=== PATIENT | male | born 1975 | race Caucasian/White ===

== ENCOUNTER 2020-03-04 09:20 | Outpatient (REF) | payer MEDICAID, SELFPAY | END 2020-03-04 09:21 | disposition home or self-care (01) | LOC: HO.LAB 09:20 | PROVIDERS: PCP Internal Medicine Geriatric Medicine; Visit Provider Internal Medicine | DX: Z20.828 Contact with and (suspected) exposure to other viral communicable diseases (principal) | CPT/HCPCS: C9803; U0003 ==

== ENCOUNTER 2020-08-03 08:38 | Outpatient (REF) | payer MEDICAID, SELFPAY ==
--- NOTE | ~2020-08-03 | MM_ITS ---
EXAMINATION: MM DIAGNOSTIC DIGITAL BREAST TOMOSYNTHESIS, BILATERAL US DIAGNOSTIC ULTRASOUND BREAST, LEFT CLINICAL INFORMATION: 45-year-old male with chronic intermittent pain left nipple and left retroareolar region. No palpable mass or discharge. No known family history breast cancer. No prior breast imaging. COMPARISON: CT chest 07/14/2017. TECHNIQUE: Digital breast tomosynthesis is performed in both the craniocaudal and mediolateral oblique views along with computer-aided detection (CAD). Synthesized 2D images are generated from the tomosynthesis. Ultrasound left breast is targeted to the retroareolar and periareolar region. Comparison imaging also performed at real-time imaging retroareolar right breast. Grayscale imaging and color Doppler are performed without and with harmonics. FINDINGS: There are scattered areas of fibroglandular density (ACR BI-RADS breast composition Category b). There is gynecomastia type parenchymal pattern, mild on right and [id number] on left. There is no mass or architectural abnormality or abnormal calcifications. Punctate densities overlying the axilla on MLO view is correspond to the skin, likely deodorant artifact. The skin contours are smooth. Ultrasound demonstrates gynecomastia type pattern. No mass or architectural abnormality. Results are discussed with the patient at time of visit. MM/MM tomosynthesis diagnostic BI IMPRESSION: Asymmetric gynecomastia, mild on right and mild to moderate on left. ASSESSMENT: BI-RADS 2: Benign RECOMMENDATION: Patient should be managed based on the clinical impression.
== END 2020-08-03 08:39 | disposition home or self-care (01) ==
LOC: HO.MAMMO 08:38
PROVIDERS: Visit Provider Internal Medicine Geriatric Medicine
DX: N62 Hypertrophy of breast (principal); N64.4 Mastodynia
CPT/HCPCS: 76642; 77062; 77066

== ENCOUNTER 2021-02-09 09:38 | Outpatient (REF) | payer MEDICAID, SELFPAY ==
--- NOTE | ~2021-02-09 | XR_ITS ---
EXAMINATION: XR KNEE, RIGHT CLINICAL INFORMATION: Right knee pain. COMPARISON: None TECHNIQUE: Four views of the right knee. FINDINGS: Minimal bony spurring is evident in the lateral and patellofemoral compartments consistent with minimal degenerative changes. No fracture or other acute abnormality. Patellar alignment is normal. There is bony spurring along the anterior margin of the patella at the insertion of the quadriceps tendon and patellar tendon. No joint effusion is evident. XR/XR knee RT 4V IMPRESSION: Minimal degenerative changes. No acute abnormality.
--- NOTE | ~2021-02-09 | XR_ITS ---
EXAMINATION: XR foot LT min 3V, XR foot RT min 3V CLINICAL INFORMATION: Bilateral foot pain. COMPARISON: None. TECHNIQUE: AP, lateral and oblique views of both feet. FINDINGS: RIGHT FOOT: No acute abnormality. There is hallux valgus deformity with bunion formation. There is a well-corticated bony spur on the posterior calcaneus at the insertion of the Achilles tendon. Bony prominence of the medial aspect of the navicular bone is consistent with fused accessory navicular. LEFT FOOT: No acute abnormality. There is mild hallux valgus with bunion formation. There is bony prominence medial aspect of the navicular bone consistent with fused accessory navicular. Bony spurring is seen in the posterior calcaneus at the insertion of the Achilles tendon and plantar fascia. Small corticated fragments along the dorsal aspect of the anterior talus consistent with old injury. XR/XR foot LT min 3V IMPRESSION: No acute abnormality of either foot is demonstrated. Chronic changes as noted.
--- NOTE | ~2021-02-09 | XR_ITS ---
EXAMINATION: XR foot LT min 3V, XR foot RT min 3V CLINICAL INFORMATION: Bilateral foot pain. COMPARISON: None. TECHNIQUE: AP, lateral and oblique views of both feet. FINDINGS: RIGHT FOOT: No acute abnormality. There is hallux valgus deformity with bunion formation. There is a well-corticated bony spur on the posterior calcaneus at the insertion of the Achilles tendon. Bony prominence of the medial aspect of the navicular bone is consistent with fused accessory navicular. LEFT FOOT: No acute abnormality. There is mild hallux valgus with bunion formation. There is bony prominence medial aspect of the navicular bone consistent with fused accessory navicular. Bony spurring is seen in the posterior calcaneus at the insertion of the Achilles tendon and plantar fascia. Small corticated fragments along the dorsal aspect of the anterior talus consistent with old injury. XR/XR foot RT min 3V IMPRESSION: No acute abnormality of either foot is demonstrated. Chronic changes as noted.
--- NOTE | ~2021-02-09 | XR_ITS ---
EXAMINATION: XR KNEE, LEFT CLINICAL INFORMATION: Left knee pain. COMPARISON: 11/04/2017 TECHNIQUE: Four views of the left knee. FINDINGS: Bones and soft tissues are normal aside from a large enthesophyte seen at the insertion of the quadriceps tendon. Slightly larger than in 2018. No fracture or joint effusion. Alignment is anatomic. Joint spaces are well maintained. No abnormal soft tissue calcification. XR/XR knee LT 4V IMPRESSION: No acute finding.
== END 2021-02-09 09:39 | disposition home or self-care (01) ==
LOC: HO.XRAY 09:38
PROVIDERS: PCP Internal Medicine Geriatric Medicine; Visit Provider Internal Medicine Geriatric Medicine
DX: M25.562 Pain in left knee (principal); M25.561 Pain in right knee; M79.671 Pain in right foot; M79.672 Pain in left foot
CPT/HCPCS: 73564; 73630

== ENCOUNTER 2022-03-02 07:47 | Outpatient (REF) | payer MEDICAID, SELFPAY ==
[2022-03-02 08:38] LABS: Hematocrit 44.6 % (42.0-52.0); Hemoglobin 13.9 g/dl (14.0-18.0); Mean Corpuscular HGB Conc 31.2 g/dl (31.0-36.0); Mean Corpuscular Hemoglobin 29.6 pg (27.0-33.0); Mean Corpuscular Volume 94.9 fL (80.0-98.0); Mean Platelet Volume 9.9 fL (9.4-12.4); Platelet Count 294 X10*3/uL (160-400); Red Cell Distribution Width 12.7 % (11.0-16.0); White Blood Count 14.5 X10*3/uL (4.8-10.8)
[2022-03-02 08:50] LABS: Estimated Average Glucose 240 mg/dL
[2022-03-02 09:17] LABS: Alanine Aminotransferase 15 U/L (0-40); Alkaline Phosphatase 118 U/L (39-117); Anion Gap 13 (12-20); Aspartate Amino Transferase 11 U/L (5-37); Bilirubin Total 0.4 mg/dL (0.0-1.0); Blood Urea Nitrogen 16 mg/dL (9-16); Calcium 9.3 mg/dL (8.4-10.2); Carbon Dioxide 31 mmol/L (22-29); Chloride 98 mmol/L (96-108); Cholesterol 134 mg/dL; Estimated Glomerular Filt Rate > 60; Glucose Random 212 mg/dL (60-115); HDL Cholesterol 29 mg/dL; LDL Cholesterol Calculated 85 mg/dl; Potassium 4.2 mmol/L (3.3-5.1); Sodium 138 mmol/L (135-145); Total Protein 7.2 g/dL (6.5-8.0); Triglycerides 102 mg/dL
[2022-03-02 09:33] LABS: Creatinine Urine 149.88 mg/dL; Microalbum/Creatinine Ratio Ur 11.3 ug/mg cr
== END 2022-03-02 07:48 | disposition home or self-care (01) ==
LOC: HO.LAB 07:47
PROVIDERS: PCP Internal Medicine Geriatric Medicine; Visit Provider Internal Medicine Geriatric Medicine
DX: E11.65 Type 2 diabetes mellitus with hyperglycemia (principal); G47.33 Obstructive sleep apnea (adult) (pediatric); I10 Essential (primary) hypertension; M79.672 Pain in left foot; Z99.89 Dependence on other enabling machines and devices
CPT/HCPCS: 36415; 80053; 80061; 82043; 83036; 85027

== ENCOUNTER 2022-10-11 12:09 | Outpatient (REF) | payer MEDICAID, SELFPAY ==
[2022-10-11 13:37] LABS: MANUAL DIFF FLAG NO
[2022-10-11 13:51] LABS: Basophils Absolute Auto 0.1 X10*3/uL (0.0-0.2); Basophils Percent Auto 0.5 % (0-2); Eosinophils Absolute Auto 0.5 X10*3/uL (0.0-0.4); Hematocrit 43.1 % (42.0-52.0); Hemoglobin 13.5 g/dl (14.0-18.0); Imm Gran Abs Auto 0.09 X10*3/uL (0.00-0.03); Imm Gran Pct Auto 0.6 % (0.0-0.4); Lymphocytes Absolute Auto 2.2 X10*3/uL (1.2-4.9); Lymphocytes Percent Auto 13.7 % (20-40); Mean Corpuscular HGB Conc 31.3 g/dl (31.0-36.0); Mean Corpuscular Hemoglobin 30.1 pg (27.0-33.0); Mean Corpuscular Volume 96.2 fL (80.0-98.0); Mean Platelet Volume 10.6 fL (9.4-12.4); Monocytes Percent Auto 6.2 % (2-11); Platelet Count 236 X10*3/uL (160-400); Red Blood Count 4.48 X10*6/uL (4.60-5.80); Red Cell Distribution Width 13.3 % (11.0-16.0); White Blood Count 15.8 X10*3/uL (4.8-10.8)
[2022-10-11 14:32] LABS: Microalbum/Creatinine Ratio Ur 25.8 ug/mg cr
[2022-10-11 15:00] LABS: Alanine Aminotransferase 20 U/L (0-40); Alkaline Phosphatase 116 U/L (39-117); Anion Gap 14 (12-20); Aspartate Amino Transferase 13 U/L (5-37); Bilirubin Total 0.3 mg/dL (0.0-1.0); Blood Urea Nitrogen 15 mg/dL (9-16); Calcium 9.9 mg/dL (8.4-10.2); Carbon Dioxide 33 mmol/L (22-29); Chloride 98 mmol/L (96-108); Cholesterol 197 mg/dL; Estimated Glomerular Filt Rate > 60; Glucose Random 166 mg/dL (60-115); HDL Cholesterol 36 mg/dL; LDL Cholesterol Calculated 99 mg/dl; Potassium 4.5 mmol/L (3.3-5.1); Sodium 140 mmol/L (135-145); TSH reflex Free T4 0.84 uIU/mL (0.32-4.0); Total Protein 7.8 g/dL (6.5-8.0); Triglycerides 310 mg/dL
== END 2022-10-11 12:10 | disposition home or self-care (01) ==
LOC: HO.HHCL 12:09
PROVIDERS: Visit Provider Internal Medicine Geriatric Medicine
DX: F32.A Depression, unspecified (principal); R11.10 Vomiting, unspecified; G47.33 Obstructive sleep apnea (adult) (pediatric); I10 Essential (primary) hypertension; K42.9 Umbilical hernia without obstruction or gangrene; Z79.899 Other long term (current) drug therapy
CPT/HCPCS: 36415; 80053; 80061; 82043; 84443; 85025

== ENCOUNTER 2022-12-06 14:19 | Outpatient (AMB) | payer MEDICAID, SELFPAY ==
--- NOTE | 2022-12-06 14:30 | A.OFFVIS_ITS ---
Intake Vital Signs 12/06/22 14:35 Height 6 ft 4 in Weight 326 lb BMI 39.7 BP 110/70 Blood Pressure Location Lt brachial Position Sitting Pulse 64 Pulse Source Pulse Oximeter Pulse Oximetry (%) 97 Oxygen Delivery Method Room Air Intake Visit Reasons: Somnolence Intake Note: pt is here for paulino work up, pt states he has daytime fatigue, snoring and wi tnessed apneas, he does deal with on/off nasal congestion. pt states his primary care doctor wanted us to see for asthma/copd Tube Room Supervisor Required: No Allergies ibuprofen [From MOTRIN] Adverse Reaction (Unknown, Unverified 12/06/22 16:13) HEARTBURN Medication List - Last Reconciled 12/06/22 by Gwendolyn Kendrick MD albuterol sulfate 90 mcg/actuation 2 puffs inhalation Q6H PRN amlodipine 10 mg PO DAILY aspirin (Adult Low Dose Aspirin) 81 mg PO DAILY atorvastatin 40 mg PO BEDTIME empagliflozin (Jardiance) 25 mg PO DAILY glipizide 5 mg PO DAILY lisinopril-hydrochlorothiazide 20-25 mg 1 tab PO DAILY metformin 500 mg PO DAILY metoprolol tartrate 100 mg PO DAILY sertraline (Zoloft) 100 mg PO DAILY umeclidinium 62.5 mcg/actuation (Incruse Ellipta) 1 inh inhalation DAILY Do you need a note to return to daycare/school/sports/work: No HPI Somnolence HPI Details 47 YEARS OLD VERY TALL AND HEAVY GENTLEM AN IS BEING SEEN FOR THE 1ST TIME. HE HAS HISTORY OF WORKING A [employer] FOR [employer] FOR MANY YEARS. HAS NOT WORKED FOR THE PAST 5 YEARS DUE TO MEDICAL ISSUES, HE HAS BEEN OVERWEIGHT SINCE ABOUT 25 YEARS AFTER HE GOT . BUT IN THE PAST. 5 YEARS HAS GAINED MORE WEIGHT HE GIVES HISTORY OF LOUD SNORING DURING THE NIGHT, VERY FREQUENT AWAKENINGS WITH GASPING LIKE FEELING. HE ENDS UP SLEEPING IN A RECLINER IN UPRIGHT POSITION. HE REMAINS VERY TIRED AND SLEEPY DURING THE DAYTIME. HE TENDS TO DOZE OFF IF HE IS SITTING AND RESTING AT ANY TIME, BUT ESPECIALLY IF HE IS WATCHING TELEVISION, READING SOME NEWSPAPER, OR AFTER LUNCH. HE CAN DRIVE HIS CAR ON LONG DISTANCE LONG HE IS ACTIVE HE REMAINS ALERT, BUT IF HE WAS RIDING WITH HIS A PASSENGER THEN HE DEFINITELY FALLS ASLEEP. HE IS ALSO HAVING SHORTNESS OF BREATH IN EPISODES FOR THE LAST 5 YEARS, HE HAS MILD INTERMITTENT COUGH. HE GETS SHORT OF BREATH ON WALKING AND ESPECIALLY IF HE. HAS TO CLIMB STAIRS HE DOES NOT GET MUCH WHEEZING. HE HAS BEEN TREATED WITH INCRUSE ELLIPTA 1 INHALATION DAILY, AND ALBUTEROL 2 PUFFS Q 4-6 HOURS P.R.N.. HE TENDS TO USE ALBUTEROL PUFFS QUITE OFTEN, EACH TIME HE GETS SHORT OF BREATH WHEN DOING SOME PHYSICAL WORK, AND NOT NECESSARILY FOR WHEEZING. IS BEING TREATED FOR DIABETES MELLITUS. WAS STARTED ON TRULICITY INJECTIONS HOPING THAT THIS WILL MAKE HIM LOSE WEIGHT BUT HE COULD NOT TOLERATE THIS IS BEING TREATED FOR HYPERTENSION HYPERLIPIDEMIA AND ALSO FOR DEPRESSION. SMOKES HALF PACK OF CIGARETTES A DAY WHICH HE HAS DONE FOR THE LAST 30 YEARS. [facility] Medical History (Updated 12/06/22 @ 16:28 by Gwendolyn Kendrick MD) Smoker Asthma with COPD Somnolence, daytime PAULINO (obstructive sleep apnea) Obesity (BMI 30-39.9) Social History Cigarette Packs Per Day: 0.5 Cigarettes Per Day: 10 Years Smoked: 34 Review of Systems Const All systems reviewed & are unremarkable except as noted in HPI and below Eyes Reports no additional complaints ENT Reports nasal congestion (MILD OFF AND ON) Card Denies irregular heart rhythm and Denies leg edema Resp Reports as per HPI GI Denies nausea (OFF AND ON, ESPECIALLY WHEN HE WAS BEING TREATED WITH TRULICITY) Reports no additional complaints Musc Reports myalgias Skin/Breast Reports system reviewed and no additional complaints, except as documented Neuro Reports no additional complaints Psych Reports depression (BEING TREATED WITH MEDS) Endo Reports other (DIABETES MELLITUS AND HYPERLIPIDEMIA) Michael/Lymph Reports no additional complaints Aller/Immun Reports no additional complaints Physical Exam Vital Signs: Last Vital Signs Pulse 64 12/06/22 14:35 BP 110/70 12/06/22 14:35 Pulse Ox 97 12/06/22 14:35 Oxygen Delivery Method Room Air 12/06/22 14:35 BMI result Body Mass Index 39.7 Const Other: HE IS THE TALL ,HEAVY AND HAS ROUND FACE General: comfortable, no acute distress, alert and awake Orientation/consciousness: patient oriented x3 HEENT Head: Yes normal to inspection General nose exam: No nasal polyps present and No nasal discharge present Face and sinus: Yes sinuses nontender Mouth: oropharynx abnormals (NARROW AND CROWDED MALLAMPATI CLASS 3) Throat: Yes posterior oropharynx normal Eyes General: appearance normal, both eyes and all related structures Neck Neck: Yes normal visual inspection, Yes no lymphadenopathy, Yes trachea midline, Yes no JVD and Yes other (NECK CIRCUMFERENCE 18-1/2 INCH) Thyroid: Thyroid normal Chest Chest palpation & inspection: normal inspection of the chest, normal palpation of entire chest wall and no tenderness Resp Effort & Inspection: normal respiratory effort Auscultation: clear to auscultation bilaterally, no crackles and no wheezes Cardio Palpation: normal PMI Rate: regular rate Rhythm: regular rhythm Heart sounds: no gallops and no murmurs GI Palpation (GI): Soft to palpation, nontender, No hepatosplenomegaly present, no masses and Other GI palpation findings present (ABDOMEN IS OBESE AND PROTUBERANT WITH THIS SMALL UMBILICAL HERNIA, ) Auscultation: normal bowel sounds Back/Spine/Pelvis Thoracic/Lumbar Spine: thoracic and lumbar spine normal to inspection and thor aco-lumbar ROM limited Skin General skin exam: no rashes or lesions noted Neuro General: patient oriented x3 and no focal motor deficits Cranial nerves: Yes CN's II-XII intact bilaterally Extrem General: Yes normal to inspection, Yes no clubbing, cyanosis or edema and Yes no calf tenderness Psych Appearance: grossly normal and well kempt Speech and movement: Normal speech and movement present Assessment & Plan Assessment & Plan (1) Obesity (BMI 30-39.9): Comment: HE IS GROSSLY OBESE, ROUND FACE, NARROW OROPHARYNX, HAS TYPICAL FEATURES OF OBSTRUCTIVE SLEEP APNEA. INSTRUCTED ABOUT WEIGHT LOSS, SHOULD JOIN WEIGHT MANAGEMENT PROGRAM WHICH HE CAN NOT. IN THE MEANTIME INSTRUCTED TO CUT DOWN ON CARBOHYDRATES INTAKE. AND START WALKING DAILY. Code(s): E66.9 - Obesity, unspecified (2) PAULINO (obstructive sleep apnea): Comment: HE HAS CLASSICAL SYMPTOMS OF SEVERE OBSTRUCTIVE SLEEP APNEA. WAS SCHEDULED FOR IN-LAB SLEEP STUDY BUT HE COULD NOT KEEP APPOINTMENT. I THINK WE WILL GO AHEAD AND DO A HOME-BASED SLEEP STUDY, AND START HIM ON TREATMENT SOON POSSIBLE. EDUCATED ABOUT THE HOME-BASED SLEEP STUDY. IN THE MEANTIME HE SHOULD NOT SLEEP IN SUPINE POSITION, TRIES TO SLEEP IN LATERAL POSITION AND MAY EVEN. KEEP THE HAD SIDE PROPPED UP Code(s): G47.33 - Obstructive sleep apnea (adult) (pediatric) (3) Somnolence, daytime: Comment: HE DOES HAVE SIGNIFICANT DAYTIME SLEEPINESS, THIS IS RELATED TO UNTRETED SLEEP APNEA, AND SLEEP DEFICIENCY. ADVISE THAT HE SHOULD NOT DRIVE ON LONG DISTANCE AND SHOULD NOT INDULGE IN ANY .HEAVY DUTY MECHANICAL WORKS Code(s): R40.0 - Somnolence (4) Asthma with COPD: Comment: DUE TO HIS SMOKING HE DOES HAVE SOME OBSTRUCTIVE AIRWAY DISORDER. MAY BE ASTHMA AND MILD COPD. HE NEEDS COMPLETE PULMONARY FUNCTION. TEST FOR PROPER DIAGNOSIS TX; IN THE MEANTIME CONTINUE INCRUSE ELLIPTA 1 INHALATION DAILY AND ALBUTEROL HFA 2 PUFFS Q 4-6 HOURS P.R.N.. Code(s): J44.9 - Chronic obstructive pulmonary disease, unspecified (5) Smoker: Code(s): F17.200 - Nicotine dependence, unspecified, uncomplicated Orders: Orders PFT pulmonary function test Today E66.9 - Obesity, unspecified, F17.200 - Nicotine dependence, unspecified, uncomplicated, J44.9 - Chronic obstructive pulmonary disease, unspecified RT home sleep study Today E66.9 - Obesity, unspecified, G47.33 - Obstructive sleep apnea (adult) (pediatric), R40.0 - Somnolence Coding Level of Care Code New Pt Level 4 (44722) Diagnoses Obesity (BMI 30-39.9) E66.9 PAULINO (obstructive sleep apnea) G47.33 Somnolence, daytime R40.0 Asthma with COPD J44.9 Smoker F17.200
[2022-12-06 14:35] VITALS: BP 110/70; PULSE 64; O2SAT 97; BMI 39.7
== END 2022-12-06 15:20 | disposition home or self-care (01) ==
PROVIDERS: PCP Internal Medicine Geriatric Medicine; Visit Provider Internal Medicine
DX: E66.9 Obesity, unspecified (principal); G47.33 Obstructive sleep apnea (adult) (pediatric); R40.0 Somnolence; J44.9 Chronic obstructive pulmonary disease, unspecified; F17.200 Nicotine dependence, unspecified, uncomplicated
CPT/HCPCS: 99204

== ENCOUNTER → 2022-12-06 14:19 | Outpatient (BNVA) | payer MEDICAID, SELFPAY | PROVIDERS: PCP Internal Medicine Geriatric Medicine; Visit Provider Internal Medicine ==

== ENCOUNTER 2022-12-14 12:48 | Outpatient (REF) | payer MEDICAID, SELFPAY ==
[2022-12-14 16:26] LABS: Estimated Average Glucose 166 mg/dL; Hemoglobin A1c % 7.4 % (<6.0)
== END 2022-12-14 12:49 | disposition home or self-care (01) ==
LOC: HO.HHCL 12:48
PROVIDERS: Visit Provider Internal Medicine Geriatric Medicine
DX: E11.65 Type 2 diabetes mellitus with hyperglycemia (principal)
CPT/HCPCS: 36415; 83036

== ENCOUNTER 2023-01-17 08:53 | Outpatient (REF) | payer MEDICAID, SELFPAY ==
--- NOTE | 2023-01-17 10:36 | PFT_ITS ---
INDICATION: Dyspnea. SPIROMETRY: FEV1 to FVC 66% with an FEV1 of 2.82 L, which is 89% predicted and FVC of 4.28 L, which is 94% predicted. No significant response to bronchodilators noted. Maximum voluntary ventilation 63% predicted. LUNG VOLUMES: Total lung capacity 81% predicted with a residual volume of 112% predicted. DIFFUSION CAPACITY: DLCO of 91%. COMPARISONS: None. INTERPRETATION: There is an obstructive ventilatory defect consistent with mild COPD. No significant response to bronchodilators noted. There is also a mild decrease in the maximum voluntary ventilation secondary to deconditioning. Lung volumes are low normal, likely secondary to elevated BMI, although occult interstitial conditions cannot be ruled out. The diffusion capacity is within normal limits. Clinical correlation warranted. MD PHILIPPE Aguilar/MODJose M / [id number]
== END 2023-01-17 08:54 | disposition home or self-care (01) ==
LOC: HO.RESP 08:53
PROVIDERS: PCP Internal Medicine Geriatric Medicine; Visit Provider Internal Medicine
DX: J44.9 Chronic obstructive pulmonary disease, unspecified (principal); E66.9 Obesity, unspecified; F17.200 Nicotine dependence, unspecified, uncomplicated
CPT/HCPCS: 94010; 94727; 94729; 95806

== ENCOUNTER → 2023-01-17 08:59 | Outpatient (REF) | payer MEDICAID, SELFPAY | LOC: HO.SL 08:59 | PROVIDERS: PCP Internal Medicine Geriatric Medicine; Visit Provider Internal Medicine | DX: G47.33 Obstructive sleep apnea (adult) (pediatric) (principal); R40.0 Somnolence; E66.9 Obesity, unspecified | CPT/HCPCS: 95806 ==

== ENCOUNTER → 2023-01-17 09:18 | Outpatient (BNV) | payer MEDICAID, SELFPAY | PROVIDERS: PCP Internal Medicine Geriatric Medicine; Visit Provider Psychiatry & Neurology Neurology | DX: G47.33 Obstructive sleep apnea (adult) (pediatric) (principal) | CPT/HCPCS: 95806 ==

== ENCOUNTER → 2023-01-17 10:36 | Outpatient (BNV) | payer MEDICAID, SELFPAY | PROVIDERS: PCP Internal Medicine Geriatric Medicine; Visit Provider Hospitalist | DX: J44.9 Chronic obstructive pulmonary disease, unspecified (principal); F17.210 Nicotine dependence, cigarettes, uncomplicated | CPT/HCPCS: 94060; 94727; 94729 ==

== ENCOUNTER 2023-02-20 10:17 | Outpatient (AMB) | payer MEDICAID, SELFPAY ==
[2023-02-20 10:19] VITALS: BP 110/80; PULSE 109; O2SAT 98; BMI 38.8
--- NOTE | 2023-02-20 10:19 | A.OFFVIS_ITS ---
Intake Vital Signs 02/20/23 10:19 Height 6 ft 4 in Weight 319 lb BMI 38.8 BP 110/80 Blood Pressure Location Lt brachial Position Sitting Pulse 109 H Pulse Source Pulse Oximeter Pulse Oximetry (%) 98 Oxygen Delivery Method Room Air Intake Visit Reasons: Somnolence Intake Note: pt is here for sleep study and pft follow up and he states he is having some numbess in the toes and was told to ask if oxygen is related. Cartography Technician Required: No Allergies ibuprofen [From MOTRIN] Adverse Reaction (Unknown, Unverified 02/20/23 10:54) HEARTBURN Medication List - Last Reconciled 02/20/23 by Gwendolyn Kendrick MD albuterol sulfate mg inhalation QID albuterol sulfate 90 mcg/actuation 2 puffs inhalation Q6H PRN amlodipine 10 mg PO DAILY aspirin (Adult Low Dose Aspirin) 81 mg PO DAILY atorvastatin 40 mg PO BEDTIME empagliflozin (Jardiance) 25 mg PO DAILY gabapentin 300 mg PO TID glipizide 5 mg PO DAILY lisinopril-hydrochlorothiazide 20-25 mg 1 tab PO DAILY metformin 500 mg PO DAILY metoprolol tartrate 100 mg PO DAILY nicotine (polacrilex) 4 mg PO sertraline (Zoloft) 100 mg PO DAILY tirzepatide (Mounjaro) 2.5 mg subcut QWEEK trazodone 100 mg PO BEDTIME PRN umeclidinium 62.5 mcg/actuation (Incruse Ellipta) 1 inh inhalation DAILY Do you need a note to return to daycare/school/sports/work: No HPI Somnolence HPI Details 48 years old gentleman, grossly obese, Has loud snoring at night with disturbed sleep, and wakes up with dry mouth. His symptoms are typical of severe obstructive sleep apnea. He has had home-based sleep study, which is consistent with severe ROSALEE plus nocturnal hypoxemia. He is a smoker. Now cut down to half pack a day, does have intermittent. Cough which is mostly dry Does get short of breath on doing any heavy physical work. He underwent pulmonary function test which shows mild restrictive disorder and mild obstructive disorder . Patient uses Incruse Ellipta 1 inhalation daily which helps to keep his cough minimal, ON LICENSE OF [facility] Medical History (Updated 02/20/23 @ 11:01 by Gwendolyn Kendrick MD) COPD (chronic obstructive pulmonary disease) Smoker Asthma with COPD Somnolence, daytime ROSALEE (obstructive sleep apnea) Obesity (BMI 30-39.9) Social History Cigarette Packs Per Day: 0.5 Cigarettes Per Day: 10 Years Smoked: 34 Review of Systems Const All systems reviewed & are unremarkable except as noted in HPI and below Eyes Reports no additional complaints ENT Reports nasal congestion (MILD OFF AND ON) Card Denies irregular heart rhythm and Denies leg edema Resp Reports as per HPI GI Denies nausea (OFF AND ON, ESPECIALLY WHEN HE WAS BEING TREATED WITH TRULICITY) Reports no additional complaints Musc Reports myalgias Skin/Breast Reports system reviewed and no additional complaints, except as documented Neuro Reports no additional complaints Psych Reports depression (BEING TREATED WITH MEDS) Endo Reports other (DIABETES MELLITUS AND HYPERLIPIDEMIA) Michael/Lymph Reports no additional complaints Aller/Immun Reports no additional complaints Physical Exam Vital Signs: Last Vital Signs Pulse 109 H 02/20/23 10:19 BP 110/80 02/20/23 10:19 Pulse Ox 98 02/20/23 10:19 Oxygen Delivery Method Room Air 02/20/23 10:19 BMI result Body Mass Index 38.8 Const Other: HE IS THE TALL ,HEAVY AND HAS ROUND FACE General: comfortable, no acute distress, alert and awake Orientation/consciousness: patient oriented x3 HEENT Head: Yes normal to inspection General nose exam: No nasal polyps present and No nasal discharge present Face and sinus: Yes sinuses nontender Mouth: oropharynx abnormals (NARROW AND CROWDED MALLAMPATI CLASS 3) Throat: Yes posterior oropharynx normal Eyes General: appearance normal, both eyes and all related structures Neck Neck: Yes normal visual inspection, Yes no lymphadenopathy, Yes trachea midline, Yes no JVD and Yes other (NECK CIRCUMFERENCE 18-1/2 INCH) Thyroid: Thyroid normal Chest Chest palpation & inspection: normal inspection of the chest, normal palpation of entire chest wall and no tenderness Resp Effort & Inspection: normal respiratory effort Auscultation: clear to auscultation bilaterally, no crackles and no wheezes Cardio Palpation: normal PMI Rate: regular rate Rhythm: regular rhythm Heart sounds: no gallops and no murmurs GI Palpation (GI): Soft to palpation, nontender, No hepatosplenomegaly present, no masses and Other GI palpation findings present (ABDOMEN IS OBESE AND PROTUBERANT WITH THIS SMALL UMBILICAL HERNIA, ) Auscultation: normal bowel sounds Back/Spine/Pelvis Thoracic/Lumbar Spine: thoracic and lumbar spine normal to inspection and thoraco-lumbar ROM limited Skin General skin exam: no rashes or lesions noted Neuro General: patient oriented x3 and no focal motor deficits Cranial nerves: Yes CN's II-XII intact bilaterally Extrem General: Yes normal to inspection, Yes no clubbing, cyanosis or edema and Yes no calf tenderness Psych Appearance: grossly normal and well kempt Speech and movement: Normal speech and movement present Results Reviewed Results Reviewed: PULMONARY FUNCTION TEST: MILD OBSTRUCTIVE DISORDER , NO RESPONSE TO BRONCHODILATORS. POSSIBLE BORDERLINE RESTRICTIVE DISORDER. HOME-BASED SLEEP STUDY TOTAL SLEEP TIME AHI 41, SUPINE POSITION AHI 62 SNORING FOR 50% OF THE SLEEP TIME. PERSISTENT NOCTURNAL HYPOXEMIA WITH AVERAGE O2 SAT 89 % AND BELOW 88% FOR 174 MINUTE. Assessment & Plan Assessment & Plan (1) Obesity (BMI 30-39.9): Comment: CONTINUES TO BE GROSSLY OBESE BMI= 38.8 AGAIN DISCUSSED WITH HIM ABOUT NEED TO LOSE WEIGHT, DIET AND ROLE OF EXERCISES EXPLAINED. Code(s): E66.9 - Obesity, unspecified (2) ROSALEE (obstructive sleep apnea): Comment: HOME-BASED SLEEP STUDY CONFIRMS D/X OF SEVERE OBSTRUCTIVE SLEEP APNEA, AND NOCTURNAL HYPOXEMIA. HE NEEDS TO HAVE CPAP TITRATION STUDY IN THE SLEEP LAB, . WHICH IS BEING ORDERED Code(s): G47.33 - Obstructive sleep apnea (adult) (pediatric) (3) Somnolence, daytime: Comment: HE DOES HAVE SIGNIFICANT DAYTIME SLEEPINESS, THIS IS RELATED TO UNTRETED SLEEP APNEA, AND SLEEP DEFICIENCY. ADVISED THAT HE SHOULD NOT DRIVE ON LONG DISTANCE AND SHOULD NOT INDULGE IN ANY .HEAVY DUTY MECHANICAL WORKS Code(s): R40.0 - Somnolence (4) COPD (chronic obstructive pulmonary disease): Comment: HE DOES HAVE MILD OBSTRUCTIVE AIRWAY DISORDER, DEFINITELY RELATED TO HIS SMOKING. TX : CONTINUE INCRUSE ELLIPTA 1 INHALATION DAILY, AND USE ALBUTEROL HFA ONLY P.R.N.. Code(s): J44.9 - Chronic obstructive pulmonary disease, unspecified (5) Smoker: Comment: SMOKING HALF PACK OF CIGARETTES A DAY. DISCUSSED ABOUT QUITTING COMPLETELY. FROM NEXT YEAR ON HE WILL BE REGISTERED IN ANNUAL LUNG SCREENING PROGRAM. Code(s): F17.200 - Nicotine dependence, unspecified, uncomplicated Orders: Orders RT PSG in-lab sleep titration Today G47.33 - Obstructive sleep apnea (adult) (pediatric), R40.0 - Somnolence Coding Level of Care Code Est Pt Level 3 (74923) Diagnoses Obesity (BMI 30-39.9) E66.9 ROSALEE (obstructive sleep apnea) G47.33 Somnolence, daytime R40.0 COPD (chronic obstructive pulmonary disease) J44.9 Smoker F17.200
== END 2023-02-20 10:55 | disposition home or self-care (01) ==
PROVIDERS: PCP Internal Medicine Geriatric Medicine; Visit Provider Internal Medicine
DX: E66.9 Obesity, unspecified (principal); G47.33 Obstructive sleep apnea (adult) (pediatric); R40.0 Somnolence; J44.9 Chronic obstructive pulmonary disease, unspecified; F17.200 Nicotine dependence, unspecified, uncomplicated
CPT/HCPCS: 99213

== ENCOUNTER → 2023-02-20 10:17 | Outpatient (BNVA) | payer MEDICAID, SELFPAY | PROVIDERS: PCP Internal Medicine Geriatric Medicine; Visit Provider Internal Medicine | DX: R40.0 Somnolence (principal); G47.33 Obstructive sleep apnea (adult) (pediatric); J44.9 Chronic obstructive pulmonary disease, unspecified; E66.9 Obesity, unspecified; F17.210 Nicotine dependence, cigarettes, uncomplicated; Z68.38 Body mass index [BMI] 38.0-38.9, adult | CPT/HCPCS: 99212 ==

== ENCOUNTER → 2023-02-27 19:30 | Outpatient (REF) | payer MEDICAID, SELFPAY | LOC: HO.SL 19:30 | PROVIDERS: PCP Internal Medicine Geriatric Medicine; Visit Provider Internal Medicine | DX: G47.33 Obstructive sleep apnea (adult) (pediatric) (principal); R40.0 Somnolence | CPT/HCPCS: 95811 ==

== ENCOUNTER → 2023-02-27 21:22 | Outpatient (BNV) | payer MEDICAID, SELFPAY | PROVIDERS: PCP Internal Medicine Geriatric Medicine; Visit Provider Internal Medicine | DX: G47.33 Obstructive sleep apnea (adult) (pediatric) (principal) | CPT/HCPCS: 95811 ==

== ENCOUNTER 2023-04-03 10:06 | Outpatient (AMB) | payer MEDICAID, SELFPAY ==
--- NOTE | 2023-04-03 10:06 | A.OFFVIS_ITS ---
Intake Vital Signs 04/03/23 10:06 Height 6 ft 4 in Intake Visit Reasons: Somnolence Intake Note: pt is on the phone for results of sleep study ;but he was dx with covid yesterday. 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: No Allergies ibuprofen [From MOTRIN] Adverse Reaction (Unknown, Unverified 04/03/23 10:19) HEARTBURN Medication List - Last Reconciled 04/03/23 by Gwendolyn Kendrick MD albuterol sulfate mg inhalation QID albuterol sulfate 90 mcg/actuation 2 puffs inhalation Q6H PRN amlodipine 10 mg PO DAILY aspirin (Adult Low Dose Aspirin) 81 mg PO DAILY atorvastatin 40 mg PO BEDTIME empagliflozin (Jardiance) 25 mg PO DAILY gabapentin 300 mg PO TID glipizide 5 mg PO DAILY lisinopril-hydrochlorothiazide 20-25 mg 1 tab PO DAILY metformin 500 mg PO DAILY metoprolol tartrate 100 mg PO DAILY nicotine (polacrilex) 4 mg PO sertraline (Zoloft) 100 mg PO DAILY tirzepatide (Mounjaro) 2.5 mg subcut QWEEK trazodone 100 mg PO BEDTIME PRN umeclidinium 62.5 mcg/actuation (Incruse Ellipta) 1 inh inhalation DAILY Do you need a note to return to daycare/school/sports/work: No HPI Somnolence HPI Details tele-visit THIS 48 YEARS OLD GENTLEMAN WAS THE SUPPOSED TO BE COMING FOR FOLLOW-UP AFTER HIS CPAP TITRATION STUDY IN THE SLEEP LAB. ON HIS HOME-BASED SLEEP STUDY HE HAD EVIDENCE OF VERY SEVERE OBSTRUCTIVE SLEEP APNEA WITH PERSISTENT HYPOXEMIA. SO HE WAS REFERRED FOR CPAP TITRATION IN THE SLEEP LAB WHICH WAS PERFORMED ON 02/27/2023. PATIENT HAD REQUIRED RELATIVELY HIGH PRESSURE AND OPTIMAL RESULTS OBTAINED WITH A BILEVEL(BIPAP ) PRESSURE OF 25-15 CM. WITH THIS PRESSURE THE HYPOXEMIC EPISODES WERE ALSO ELIMINATED. THE PATIENT CONTINUES TO HAVE SLEEP PROBLEM WITH FREQUENT AWAKENING AND DAYTIME SOMNOLENCE. HE IS BEING TREATED FOR CHRONIC OBSTRUCTIVE PULMONARY DISEASE WITH INCRUSE ELLIPTA 1 INHALATION DAILY AND ALBUTEROL P.R.N.. HE IS SUFFERING FROM COVID-19 SINCE YESTERDAY BUT CLAIMS THAT HE IS STABLE, AND DOES NOT HAVE ANY RESPIRATORY DISTRESS. FORMERLY [facility], [facility] Medical History (Updated 04/03/23 @ 10:28 by Gwendolyn Kendrick MD) COVID-19 COPD (chronic obstructive pulmonary disease) Smoker Asthma with COPD Somnolence, daytime ROSALEE (obstructive sleep apnea) Obesity (BMI 30-39.9) Social History Cigarette Packs Per Day: 0.5 Cigarettes Per Day: 10 Years Smoked: 34 Review of Systems Const All systems reviewed & are unremarkable except as noted in HPI and below Eyes Reports no additional complaints ENT Reports nasal congestion (MILD OFF AND ON) Card Denies irregular heart rhythm and Denies leg edema Resp Reports as per HPI GI Denies nausea (OFF AND ON, ESPECIALLY WHEN HE WAS BEING TREATED WITH TRULICITY) Reports no additional complaints Musc Reports myalgias Skin/Breast Reports system reviewed and no additional complaints, except as documented Neuro Reports no additional complaints Psych Reports depression (BEING TREATED WITH MEDS) Endo Reports other (DIABETES MELLITUS AND HYPERLIPIDEMIA) Michael/Lymph Reports no additional complaints Aller/Immun Reports no additional complaints Physical Exam Vital Signs: TELE VISIT. SO NO PHYSICAL EXAM PERFORMED I EXPLAINED THE FINDINGS OF HIS CPAP TITRATION STUDY, Assessment & Plan Assessment & Plan (1) Asthma with COPD: Comment: DUE TO HIS SMOKING HE DOES HAVE SOME OBSTRUCTIVE AIRWAY DISORDER. MAY BE ASTHMA AND MILD COPD. HE NEEDS COMPLETE PULMONARY FUNCTION. TEST FOR PROPER DIAGNOSIS, WHICH IS PENDING. Code(s): J44.9 - Chronic obstructive pulmonary disease, unspecified Plan: PULMONARY FUNCTION TEST AWAITED. TX; IN THE MEANTIME CONTINUE INCRUSE ELLIPTA 1 INHALATION DAILY AND ALBUTEROL HFA 2 PUFFS Q 4-6 HOURS P.R.N.. (2) Somnolence, daytime: Comment: HE DOES HAVE SIGNIFICANT DAYTIME SLEEPINESS, THIS IS RELATED TO UNTRETED SLEEP APNEA, AND SLEEP DEFICIENCY. ADVISED THAT HE SHOULD NOT DRIVE ON LONG DISTANCE AND SHOULD NOT INDULGE IN ANY HEAVY DUTY MECHANICAL WORKS, UNTIL HE IS FULLY TREATED FOR HIS OBSTRUCTIVE SLEEP APNEA. Code(s): R40.0 - Somnolence Plan: ABOVE (3) ROSALEE (obstructive sleep apnea): Comment: HOME-BASED SLEEP STUDY CONFIRMS D/X OF SEVERE OBSTRUCTIVE SLEEP APNEA, AND NOCTURNAL HYPOXEMIA. CPAP TITRATION STUDY WAS SUCCESSFUL IN THE RESULTS DESCRIBED ABOVE IN HPI. Code(s): G47.33 - Obstructive sleep apnea (adult) (pediatric) Plan: EXPLAINED TO THE PATIENT THE RESULTS OF THE STUDY AND TOLD HIM THAT HE NEEDS TO BE STARTED ON SAYS BIPAP TREATMENT SOON POSSIBLE. PATIENT WILL BE STARTED ON BIPAP THERAPY WITH PRESSURE SETTING OF 25/15 CM, USING FULLFACE MASK OF MEDIUM SIZE. HE WILL BE CLOSELY MONITORED FOR COMPLIANCE AND BENEFITS. (4) COVID-19: Comment: PATIENT REPORTS THAT HE HAS SYMPTOMS OF COMMON COLD AND ALSO TESTED POSITIVE FOR COVID INFECTION. REST AT HOME AND SYMPTOMATIC TREATMENT IS PRESCRIBED. HE WILL LET US KNOW IF THERE IS ANY WORSENING OF HIS RESPIRATORY STATUS. Code(s): U07.1 - COVID-19 Plan: ABOVE Telehealth Telehealth Location of provider rendering services: practice address Location of patient: address on file Patient Identification confirmed using: Name, : Yes Telehealth method: voice only Patient verbally consented to treatment: Yes Patient verbally consented to billing insurance company: Yes Patient informed of any privacy concerns related to visit: Yes Minutes spent on Phone/Video with Pt.: 20 Coding Level of Care Code Tele Est Pt Level 4 (32425) Diagnoses Asthma with COPD J44.9 Somnolence, daytime R40.0 ROSALEE (obstructive sleep apnea) G47.33 COVID-19 U07.1
== END 2023-04-03 10:33 | disposition home or self-care (01) ==
LOC: HO.HPS 10:06
PROVIDERS: PCP Internal Medicine Geriatric Medicine; Visit Provider Internal Medicine
DX: R40.0 Somnolence (principal); J44.9 Chronic obstructive pulmonary disease, unspecified; G47.33 Obstructive sleep apnea (adult) (pediatric); U07.1 COVID-19
CPT/HCPCS: 99214

== ENCOUNTER → 2023-04-03 10:06 | Outpatient (BNVA) | payer MEDICAID, SELFPAY | PROVIDERS: PCP Internal Medicine Geriatric Medicine; Visit Provider Internal Medicine ==

== ENCOUNTER → 2023-05-21 10:37 | Outpatient (REF) | payer MEDICAID, SELFPAY ==
--- NOTE | 2023-05-21 10:47 | CA_ITS ---
Transthoracic Echocardiogram Patient (Last, First, Middle): Dick Dixon, Gender: Male Date of : 1975 Age: 48 Procedure Date: 05/21/2023 Procedure Type: Transthoracic Echocardiogram Location: OP Height: 193. 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 The calculated ejection fraction is 59% by biplane method. - No obvious valvular pathology seen on this study. - There is severe dilatation of the ascending aorta measuring 5.10 cm. - Recommend CTA for further evaluation. Findings Procedure Information Contrast agent, definity, is being given per protocol without apparent complications. Left Ventricle Normal left ventricular cavity size. There is mildly increased left ventricular wall thickness. The left ventricular systolic function is normal. The calculated ejection fraction is 59% by biplane method. There is no evidence of regional wall motion abnormalities. Diastolic function is normal for age. There is moderate septal asymmetric hypertrophy. Right Ventricle Normal right ventricular cavity size and systolic function. Atria The left atrium is normal in size. The right atrium is mildly dilated. Aortic Valve There is a normal trileaflet aortic valve. There is mild calcification of the aortic valve. There is mild aortic valve stenosis. There is no aortic valve regurgitation. Mitral Valve The mitral valve appears normal. There is no mitral valve regurgitation. There is no mitral valve stenosis. Pulmonic Valve The pulmonic valve is likely normal. Tricuspid Valve Normal tricuspid valve structure. There is trace tricuspid valve regurgitation. Tricuspid regurgitation envelope is inadequate for calculation of right ventricular systolic pressure. Great Vessels There is severe dilatation of the ascending aorta measuring 5.10 cm. Venous The inferior vena cava is normal in size and collapses greater than 50% with inspiration. Pericardium/Pleural There is no evidence of pericardial effusion. Prior Study Comparison Changes noted compared to prior study dated: 01/19/2019. Increase in ascending aortic size. Recommendations, Care & Conclusions No obvious valvular pathology seen on this study. Measurements 2D Linear Measurements IVSd: 1.45 0.6-0.9/0.6-1.0 cm LVIDd: 4.38 3.9-5.3/4.2-5.9 cm LVIDd Index: 1.61 2.4-3.2/2.2-3.1 cm/m2 LVIDs: 2.97 2.0-3.6 cm LVPWd: 1.12 0.7-1.1 cm LA Diam: 4.90 2.7-3.8/3.0-4.0 cm LAIDs Index: 1.80 1.5-2.3 cm/m2 LV Mass: 261.74 67-162/88-224 g LV Mass Index: 96.23 43-95/49-115 g/m2 LVOT Diam: 2.60 3.0+(-)1.3 cm 2D Systolic Function EF 4C: 55.00 >55% EF 2C: 65.90 >55% EF BiP: 58.70 >55% Mitral Valve MV Pk E: 0.94 MV PK A: 0.77 MV Decel Time: 202.00 E/A: 1.20 E'Lateral: 11.30 E'Medial: 9.57 E/E' Med: 9.80 E/E' Lat: 8.30 PHT: 59.00 MVA PHT: 3.73 Decel [place]: 4.64 Aortic Valve AoV Pk José Miguel: 2.84 AoV Mn José Miguel: 2.14 AoV VTI: 0.63 AoV Pk Grad: 32.00 Aov Mn Grad: 21.00 ROD Cont.VTI: 1.80 LVOT LVOT Pk José Miguel: 1.04 LVOT Mn José Miguel: 0.70 LVOT VTI: 0.21 LVOT Pk Grad: 4.00 LVOT Mn Grad: 3.00 LVOT Diam: 2.60 LVOT Area: 5.31 Diastolic Function MV Pk E: 0.94 MV Pk A: 0.77 E/A: 1.20 E'Medial: 9.57 E/E' Med: 9.80 E' Laterial: 11.30 E/E' Lat: 8.30 Right Ventricle TAPSE (mm): 22.50 TVS' José Miguel: 12.50 Tricuspid Valve RA Press: 3.00 Great Vessels Aorta Sinus of Valsalva: 4.10 2.0-3.5 cm Ao Asc: 5.10 2.1-3.4 cm Ao Arch: 3.40 Pulmonary Valve PV Pk José Miguel: 1.05 Peak PV Grad: 4.00 Updated in Other Vendor System with Status of Final Jeff Pack MD electronically signed on 05/22/2023 8:22:47 AM with status of Final
== END ==
LOC: HO.CARD 10:37
PROVIDERS: PCP Internal Medicine Geriatric Medicine; Visit Provider Internal Medicine Geriatric Medicine
DX: G47.33 Obstructive sleep apnea (adult) (pediatric) (principal); R06.09 Other forms of dyspnea
CPT/HCPCS: 93306; Q9957

== ENCOUNTER → 2023-05-21 10:47 | Outpatient (BNV) | payer MEDICAID, SELFPAY | PROVIDERS: PCP Internal Medicine Geriatric Medicine; Visit Provider Internal Medicine | DX: I35.0 Nonrheumatic aortic (valve) stenosis (principal) | CPT/HCPCS: 93306 ==

== ENCOUNTER 2023-05-27 13:35 | Outpatient (REF) | payer MEDICAID, SELFPAY ==
--- NOTE | ~2023-05-27 | CT_ITS ---
EXAMINATION: CT ANGIOGRAM CHEST CLINICAL INFORMATION: Dilatation ascending aorta. COMPARISON: CT chest 07/14/2017. TECHNIQUE: Multiple axial images were obtained through the chest after the administration of 70 mL of Omnipaque 350 intravenous contrast. Extensive vascular post-processing including two-dimensional and three-dimensional reformatted images were created and reviewed on an independent workstation. This CT examination was performed using dose optimization techniques as appropriate, variously including the following: *Automated exposure control *Adjustment of mA and/or kV according to patient size (this includes techniques or standardized protocols for targeted exams where dose is matched to indication/reason for exam; i.e. extremities or head) *Use of iterative reconstruction technique DLP: 305 mGy-cm. FINDINGS: VASCULAR: Aortic valve calcifications. The ascending thoracic aorta is diffusely aneurysmal, measuring 5.1 x 4.7 cm at the level of the main pulmonary artery. Three-vessel aortic arch. Visualized proximal great vessels are normal in caliber. The arch is normal in caliber. Normal caliber descending thoracic aorta. LUNGS: No consolidation or suspicious pulmonary nodules. MEDIASTINUM: No mediastinal lymphadenopathy. Normal heart size, no pericardial effusion. Coronary artery calcifications. PLEURA: No pleural effusion or pneumothorax. AXILLA: No axillary lymphadenopathy. Bilateral gynecomastia. UPPER ABDOMEN: Mild nodularity of the left adrenal gland, not appreciably changed from 2018. OSSEOUS STRUCTURES: Degenerative changes in the thoracic spine. CT/CT angio chest aorta IMPRESSION: 1. Diffuse aneurysmal dilatation of the ascending thoracic aorta, measuring up to 5.1 x 4.7 cm. 2. Coronary artery calcifications. Fleischner guidelines were followed.
[2023-05-27] MEDS: iohexoL 350 MG/ML 75 ML INFUS..BTL 70 ML IV (14:17)
== END 2023-05-27 13:36 | disposition home or self-care (01) ==
LOC: HO.CT 13:35
PROVIDERS: PCP Internal Medicine Geriatric Medicine; Visit Provider Internal Medicine Geriatric Medicine
DX: I71.21 Aneurysm of the ascending aorta, without rupture (principal)
CPT/HCPCS: 71275; Q9967

== ENCOUNTER 2023-06-11 13:21 | Outpatient (AMB) | payer MEDICAID, SELFPAY ==
--- NOTE | 2023-06-11 13:25 | A.OFFVIS_ITS ---
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 Required: No Accompanied by: Allergies ibuprofen [From MOTRIN] Adverse Reaction (Unknown, Verified 06/11/23 13:27) HEARTBURN Medication List - Last Reconciled 06/11/23 by Jeff Pack MD albuterol sulfate mg inhalation QID albuterol sulfate 90 mcg/actuation 2 puffs inhalation Q6H PRN amlodipine 10 mg PO DAILY aspirin (Adult Low Dose Aspirin) 81 mg PO DAILY atorvastatin 40 mg PO BEDTIME empagliflozin (Jardiance) 25 mg PO DAILY gabapentin 300 mg PO TID glipizide 5 mg PO DAILY lisinopril-hydrochlorothiazide 20-25 mg 1 tab PO DAILY metformin 500 mg PO DAILY metoprolol tartrate 100 mg PO DAILY nicotine (polacrilex) 4 mg PO sertraline (Zoloft) 100 mg PO DAILY tirzepatide (Mounjaro) 2.5 mg subcut QWEEK trazodone 100 mg PO BEDTIME PRN umeclidinium 62.5 mcg/actuation (Incruse Ellipta) 1 inh inhalation DAILY HPI HPI Comments History of Present Illness Details Dick is here for consultation regarding ascending aortic aneurysm. He recently had an echocardiogram that showed ascending aortic size more than 5 cm. Patient has multiple medical comorbidities including obesity, smoking, diabetes, hypertension, dyslipidemia, ROSALEE not on CPAP among others. He states that he was told to have a heart attack many years ago in the setting of pneumonia when he was really ill. However, it does not appear that he actually had any catheterization according to him. Otherwise, no clear-cut anginal-type symptoms. [facility] Medical History (Updated 06/11/23 @ 13:29 by Jeff Pack MD) Morbid obesity Hyperlipidemia, unspecified Type 2 diabetes mellitus with unspecified complications Essential hypertension Ascending aortic aneurysm COVID-19 COPD (chronic obstructive pulmonary disease) Smoker Asthma with COPD Somnolence, daytime ROSALEE (obstructive sleep apnea) Obesity (BMI 30-39.9) Family History (Updated 06/11/23 @ 13:38 by Jeff Pack MD) Father No problems noted. Mother No problems noted. Social History (Updated 06/11/23 @ 13:28 by Uma Cabrera) Alcohol intake: never Cigarette Packs Per Day: 0.5 Cigarettes Per Day: 10 Years Smoked: 34 Review of Systems Const Denies chills, Denies daytime sleepiness, Denies fatigue, Denies fever(s), Denies frequent falls, Denies night sweats, Denies snoring, Denies weakness, Denies weight gain and Denies weight loss Eyes Denies loss of vision ENT Denies dizziness and Denies hearing loss Card Denies chest pain, Denies chest pain with activity, Denies syncope, Denies rapid heart rate, Denies edema, Denies claudication, Denies leg edema, Denies lightheadedness and Denies orthopnea Resp Denies cough, Denies excessive phlegm production, Denies snoring and Denies wheezing GI Denies abdominal pain, Denies hematochezia, Denies change in bowel habits, Denies change in stool character, Denies heartburn, Denies nausea and Denies vomiting Denies hematuria, Denies dysuria and Denies urinary frequency Musc Denies arthralgias, Denies muscle weakness, Denies numbness and Denies tingling Skin/Breast Denies nail changes and Denies rash Neuro Denies Abnormal speech present, Denies dizziness, Denies syncope, Denies frequent falls, Denies loss of vision, Denies memory loss, Denies numbness, Denies tingling and Denies weakness Psych Denies depression and Denies memory loss Endo Denies fatigue Aller/Immun Denies wheezing Physical Exam Vital Signs: Last Vital Signs Pulse 99 06/11/23 13:28 BP 130/96 H 06/11/23 13:28 BMI result Body Mass Index 36.8 Const General: comfortable and no acute distress Orientation/consciousness: patient oriented x3 HEENT Other: Unremarkable Head: Yes normal to inspection Neck Neck: Yes normal visual inspection Chest Chest palpation & inspection: normal inspection of the chest Resp Auscultation: clear to auscultation bilaterally Cardio Palpation: normal PMI Heart sounds: S1 normal heart sound present, S2 normal heart sound present, no gallops, Murmur heart sound present systolic II/ and at the right sternal border and no rubs GI Palpation (GI): Soft to palpation Back/Spine/Pelvis Other: unremarkable Skin General skin exam: no rashes or lesions noted Neuro General: patient oriented x3 Speech: No Abnormal speech present Extrem General: Yes normal to inspection Psych Mental Status: mental status grossly normal Office Procedures EKG Details: EKG with sinus rhythm at 99/Min; nonspecific ST-T changes; [place]. [id number], Complete Assessment & Plan Assessment & Plan (1) Ascending aortic aneurysm: Code(s): I71.21 - Aneurysm of the ascending aorta, without rupture (2) Coronary artery calcification seen on CT scan: Code(s): I25.10 - Atherosclerotic heart disease of [place] coronary artery without angina pectoris (3) Essential hypertension: Code(s): I10 - Essential (primary) hypertension (4) Type 2 diabetes mellitus with unspecified complications: Code(s): E11.8 - Type 2 diabetes mellitus with unspecified complications (5) Hyperlipidemia, unspecified: Code(s): E78.5 - Hyperlipidemia, unspecified (6) Morbid obesity: Code(s): E66.01 - Morbid (severe) obesity due to excess calories Plan Cardiac findings reviewed. In the echocardiogram, LVEF 59%. Ascending aortic size was 5.1cm. With regard to valves, mild aortic stenosis. In the chest CTA, ascending aortic size 5.1/4.7 cm. Normal caliber descending thoracic aorta. Coronary artery calcification noted. Pathophysiology of ascending aortic aneurysm discussed with patient. He is quite obese and hence some of the reason for larger size is due to body surface area but still size is considerable. He also has an extensive risk factor profile including continued smoking. Next step would be a diagnostic catheterization. Patient is agreeable. Can be scheduled. Cardiac surgery consultation also recommended. Otherwise, aggressive risk factor modification including smoking cessation. We will screen him for abdominal aortic aneurysm with ultrasound. Family screening also discussed. Discussed with significant other. Follow-up after the above. Orders: Orders Complete Blood Count no Diff Today I71.21 - Aneurysm of the ascending aorta, without rupture Basic Metabolic Panel Today I71.21 - Aneurysm of the ascending aorta, without rupture Prothrombin Time INR Today I25.10 - Atherosclerotic heart disease of [place] coronary artery without angina pectoris Cardiac Cath LT Diagnostic Today I25.10 - Atherosclerotic heart disease of [place] coronary artery without angina pectoris US abdominal aortic aneurysm Today I71.40 - Abdominal aortic aneurysm, without rupture, unspecified Referrals Cardiac Surgery Referral I71.21 - Aneurysm of the ascending aorta, without rupture Coding Level of Care Code New Pt Level 5 (98853) Diagnoses Ascending aortic aneurysm I71.21 Coronary artery calcification seen on CT scan I25.10 Essential hypertension I10 Type 2 diabetes mellitus with unspecified complications E11.8 Hyperlipidemia, unspecified E78.5 Morbid obesity E66.01 CPT Codes EKG - CPT: 89109-[id number], Complete ([id number])
[2023-06-11 13:28] VITALS: BP 130/96; PULSE 99; BMI 36.8
== END 2023-06-11 13:56 | disposition home or self-care (01) ==
PROVIDERS: PCP Internal Medicine Geriatric Medicine; Visit Provider Internal Medicine
DX: I71.21 Aneurysm of the ascending aorta, without rupture (principal); I25.10 Atherosclerotic heart disease of native coronary artery without angina pectoris; I10 Essential (primary) hypertension; E11.8 Type 2 diabetes mellitus with unspecified complications; E78.5 Hyperlipidemia, unspecified; E66.01 Morbid (severe) obesity due to excess calories
CPT/HCPCS: 93010; 99204

== ENCOUNTER → 2023-06-11 13:21 | Outpatient (BNVA) | payer MEDICAID, SELFPAY | PROVIDERS: PCP Internal Medicine Geriatric Medicine; Visit Provider Internal Medicine | DX: I71.21 Aneurysm of the ascending aorta, without rupture (principal); I25.10 Atherosclerotic heart disease of native coronary artery without angina pectoris; I10 Essential (primary) hypertension; E11.8 Type 2 diabetes mellitus with unspecified complications; E78.5 Hyperlipidemia, unspecified; E66.01 Morbid (severe) obesity due to excess calories; Z68.36 Body mass index [BMI] 36.0-36.9, adult | CPT/HCPCS: 93005; 99202 ==

== ENCOUNTER 2023-06-14 07:58 | Outpatient (REF) | payer MEDICAID, SELFPAY ==
[2023-06-14 08:54] LABS: Hematocrit 49.2 % (42.0-52.0); Hemoglobin 15.9 g/dl (14.0-18.0); Mean Corpuscular HGB Conc 32.3 g/dl (31.0-36.0); Mean Corpuscular Hemoglobin 29.3 pg (27.0-33.0); Mean Corpuscular Volume 90.6 fL (80.0-98.0); Platelet Count 276 X10*3/uL (160-400); Red Blood Count 5.43 X10*6/uL (4.60-5.80); Red Cell Distribution Width 12.6 % (11.0-16.0); White Blood Count 14.1 X10*3/uL (4.8-10.8)
[2023-06-14 08:57] LABS: Prothrombin Time 12.2 SEC (11.1-13.3)
[2023-06-14 09:08] LABS: Anion Gap 15 (12-20); Blood Urea Nitrogen 21 mg/dL (9-16); Calcium 9.9 mg/dL (8.4-10.2); Carbon Dioxide 28 mmol/L (22-29); Chloride 100 mmol/L (96-108); Estimated Glomerular Filt Rate > 60; Glucose Random 153 mg/dL (60-115); Potassium 3.7 mmol/L (3.3-5.1); Sodium 139 mmol/L (135-145)
== END 2023-06-14 07:59 | disposition home or self-care (01) ==
LOC: HO.LAB 07:58
PROVIDERS: PCP Internal Medicine Geriatric Medicine; Visit Provider Internal Medicine
DX: I71.21 Aneurysm of the ascending aorta, without rupture (principal); I25.10 Atherosclerotic heart disease of native coronary artery without angina pectoris; I10 Essential (primary) hypertension; Z79.01 Long term (current) use of anticoagulants
CPT/HCPCS: 36415; 80048; 85027; 85610

== ENCOUNTER → 2023-06-25 23:59 | Outpatient (BNV) | payer MEDICAID, SELFPAY | PROVIDERS: PCP Internal Medicine Geriatric Medicine; Visit Provider Internal Medicine Cardiovascular Disease | DX: I20.89 Other forms of angina pectoris (principal) | CPT/HCPCS: 93458; 99152 ==

== ENCOUNTER 2023-07-01 08:00 | Outpatient (REF) | payer MEDICAID, SELFPAY ==
--- NOTE | ~2023-07-01 | US_ITS ---
EXAMINATION: US RETROPERITONEAL LIMITED (AORTA) CLINICAL INFORMATION: Abdominal aortic aneurysm, without rupture, unspecified. COMPARISON: None available. TECHNIQUE: Anderson-scale, color Doppler and spectral Doppler evaluation of the abdominal aorta. FINDINGS: No significant atherosclerotic plaque. The measurements of the aorta in maximum AP and transverse dimensions respectively are as follows: Proximal: 2.8 x 2.7 cm. Mid: 2.1 x 1.3 cm. Distal: 2.1 x 1.9 cm. PSV: 92 cm/s. The measurements of the common iliac arteries in maximum AP and TRV dimensions are as follows: Right Common Iliac Artery: 0.9 x 0.8 cm. Left Common Iliac Artery: 1.1 x 1.2 cm. US/US abdominal aortic aneurysm IMPRESSION: No sonographic evidence of abdominal aortic aneurysm. Based on published guidelines in J Am Jordy Radiol 2013; 10(10):789-794 and J Vasc Surg. 2018; 67:2-77, the recommendation for an abdominal aorta with diameter 2.6-2.9 cm is follow-up every 5 years if the aorta that meets the criteria for AAA (>1.5 x proximal normal segment; no f/u if < 1.5 x proximal normal segment; no f/u for aorta < 2.6 cm).
== END 2023-07-01 08:01 | disposition home or self-care (01) ==
LOC: HO.US 08:00
PROVIDERS: PCP Internal Medicine Geriatric Medicine; Visit Provider Internal Medicine
DX: I71.40 Abdominal aortic aneurysm, without rupture, unspecified (principal)
CPT/HCPCS: 76706

== ENCOUNTER 2023-07-10 14:07 | Outpatient (AMB) | payer MEDICAID, SELFPAY ==
[2023-07-10 14:14] VITALS: BP 120/72; PULSE 103; BMI 38.2
--- NOTE | 2023-07-10 14:14 | MHC.OFFVIS ---
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 Required: No Accompanied by: Self / Same As Patient Allergies ibuprofen [From MOTRIN] Adverse Reaction (Unknown, Verified 06/11/23 13:27) HEARTBURN Medication List - Last Reconciled 07/10/23 by Jeff Pack MD albuterol sulfate mg inhalation QID albuterol sulfate 90 mcg/actuation 2 puffs inhalation Q6H PRN amlodipine 10 mg PO DAILY aspirin (Adult Low Dose Aspirin) 81 mg PO DAILY atorvastatin 40 mg PO BEDTIME empagliflozin (Jardiance) 25 mg PO DAILY gabapentin 300 mg PO TID glipizide 5 mg PO DAILY lisinopril-hydrochlorothiazide 20-25 mg 1 tab PO DAILY metformin 500 mg PO DAILY metoprolol tartrate 100 mg PO DAILY nicotine (polacrilex) 4 mg PO sertraline (Zoloft) 100 mg PO DAILY umeclidinium 62.5 mcg/actuation (Incruse Ellipta) 1 inh inhalation DAILY HPI HPI Comments History of Present Illness Details Dick returns for follow-up. Recently seen in consultation regarding ascending aortic aneurysm. A routine echocardiogram through his own PCP had shown ascending aortic aneurysm. Patient has multiple medical comorbidities including obesity, smoking, diabetes, hypertension, dyslipidemia, ROSALEE not on CPAP among others. Since last seen, he has completed cardiac catheterization. Also saw cardiac surgery. [facility] Medical History (Updated 06/11/23 @ 13:29 by Jeff Pack MD) Morbid obesity Hyperlipidemia, unspecified Type 2 diabetes mellitus with unspecified complications Essential hypertension Ascending aortic aneurysm COVID-19 COPD (chronic obstructive pulmonary disease) Smoker Asthma with COPD Somnolence, daytime ROSALEE (obstructive sleep apnea) Obesity (BMI 30-39.9) Family History Father No problems noted. Mother No problems noted. Social History Alcohol intake: never Cigarette Packs Per Day: 0.5 Cigarettes Per Day: 10 Years Smoked: 34 Review of Systems Const Denies chills, Denies fatigue, Denies fever(s), Denies frequent falls, Denies weakness, Denies weight gain and Denies weight loss ENT Denies dizziness Card Denies chest pain, Denies leg edema, Denies lightheadedness, Denies palpitations, Denies dyspnea and Denies dyspnea on exertion Resp Denies cough, Denies dyspnea and Denies dyspnea on exertion GI Denies hematochezia Musc Denies abnormal gait, Denies muscle weakness, Denies numbness, Denies radiating pain into limb and Denies tingling Neuro Denies Abnormal speech present, Denies abnormal gait, Denies dizziness, Denies frequent falls, Denies numbness, Denies tingling and Denies weakness Endo Denies fatigue and Denies palpitations Physical Exam Vital Signs: Last Vital Signs Pulse 103 H 07/10/23 14:14 BP 120/72 07/10/23 14:14 BMI result Body Mass Index 38.2 Const General: comfortable and no acute distress Orientation/consciousness: patient oriented x3 HEENT Other: Unremarkable Head: Yes normal to inspection Neck Neck: Yes normal visual inspection Chest Chest palpation & inspection: normal inspection of the chest Resp Auscultation: clear to auscultation bilaterally Cardio Palpation: normal PMI Heart sounds: S1 normal heart sound present, S2 normal heart sound present, no gallops, Murmur heart sound present systolic II/ and at the right sternal border and no rubs GI Palpation (GI): Soft to palpation Back/Spine/Pelvis Other: unremarkable Skin General skin exam: no rashes or lesions noted Neuro General: patient oriented x3 Speech: No Abnormal speech present Extrem General: Yes normal to inspection Psych Mental Status: mental status grossly normal Assessment & Plan Assessment & Plan (1) Ascending aortic aneurysm: Code(s): I71.21 - Aneurysm of the ascending aorta, without rupture (2) Coronary artery calcification seen on CT scan: Code(s): I25.10 - Atherosclerotic heart disease of [place] coronary artery without angina pectoris (3) Essential hypertension: Code(s): I10 - Essential (primary) hypertension (4) Type 2 diabetes mellitus with unspecified complications: Code(s): E11.8 - Type 2 diabetes mellitus with unspecified complications (5) Hyperlipidemia, unspecified: Code(s): E78.5 - Hyperlipidemia, unspecified (6) Morbid obesity: Code(s): E66.01 - Morbid (severe) obesity due to excess calories Plan Cardiac findings reviewed. In the echocardiogram, LVEF 59%. Ascending aortic size was 5.1cm. With regard to valves, mild aortic stenosis. In the chest CTA, ascending aortic size 5.1/4.7 cm. Normal caliber descending thoracic aorta. Coronary artery calcification noted. In the cardiac catheterization, mild irregularities only in circumflex and RCA but otherwise unremarkable coronaries. Cardiac surgery consultation reviewed. Essentially, recommendation is to lose weight, stop smoking and have good diabetes control before proceeding with aortic surgery. We discussed about these recommendations today. Strongly advised him to stop smoking again and he states he will. Discussed with significant other. Coding Level of Care Code Est Pt Level 4 (78518) Diagnoses Ascending aortic aneurysm I71.21 Coronary artery calcification seen on CT scan I25.10 Essential hypertension I10 Type 2 diabetes mellitus with unspecified complications E11.8 Hyperlipidemia, unspecified E78.5 Morbid obesity E66.01
== END 2023-07-10 14:46 | disposition home or self-care (01) ==
PROVIDERS: PCP Internal Medicine Geriatric Medicine; Referring Provider Internal Medicine Geriatric Medicine; Visit Provider Internal Medicine
DX: I71.21 Aneurysm of the ascending aorta, without rupture (principal); I25.10 Atherosclerotic heart disease of native coronary artery without angina pectoris; I10 Essential (primary) hypertension; E11.8 Type 2 diabetes mellitus with unspecified complications; E78.5 Hyperlipidemia, unspecified; E66.01 Morbid (severe) obesity due to excess calories
CPT/HCPCS: 99214

== ENCOUNTER → 2023-07-10 14:07 | Outpatient (BNVA) | payer MEDICAID, SELFPAY | PROVIDERS: PCP Internal Medicine Geriatric Medicine; Visit Provider Internal Medicine | DX: I71.21 Aneurysm of the ascending aorta, without rupture (principal); I25.10 Atherosclerotic heart disease of native coronary artery without angina pectoris; I10 Essential (primary) hypertension; E11.8 Type 2 diabetes mellitus with unspecified complications; E78.5 Hyperlipidemia, unspecified; E66.01 Morbid (severe) obesity due to excess calories; Z68.38 Body mass index [BMI] 38.0-38.9, adult | CPT/HCPCS: 99212 ==

== ENCOUNTER 2023-07-29 11:23 | Outpatient (AMB) | payer MEDICAID, SELFPAY ==
--- NOTE | 2023-07-29 11:24 | A.OFFVIS_ITS ---
Vital Signs 07/29/23 11:32 Height 6 ft 4 in Weight 310 lb BMI 37.7 BP 112/70 Blood Pressure Location Rt brachial Position Sitting Pulse 84 Intake Visit Reasons: umbilical hernia Intake Note: Patient referred by PCP Dr. Espinal for umbilical hernia. Patient c/o: pain on middle of abd. Patient has aneurysm on aorta. Currently trying to loose weight to have surgery. 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 He has had this approximately 8 years time. It is increasing in size, becoming more sympt omatic. He would like to have it repaired. Patient is otherwise tolerating his diet, having regular bowel habits. Does do occasional heavy lifting. Chart was reviewed and patient evaluated. Patient has an ascending aortic aneurysm which has been followed by cardiac surgery at [facility] Medical History Morbid obesity Hyperlipidemia, unspecified Type 2 diabetes mellitus with unspecified complications Essential hypertension Ascending aortic aneurysm COVID-19 COPD (chronic obstructive pulmonary disease) Smoker Asthma with COPD Somnolence, daytime ROSALEE (obstructive sleep apnea) Obesity (BMI 30-39.9) Surgical History (Updated 07/29/23 @ 12:36 by Atilio Hernandez MD) H/O lymph node excision Family History Father No problems noted. Mother No problems noted. Social History Alcohol intake: never Cigarette Packs Per Day: 0.5 Cigarettes Per Day: 10 Years Smoked: 34 Physical Exam Vital Signs: Last Vital Signs Pulse 84 07/29/23 11:32 BP 112/70 07/29/23 11:32 BMI result Body Mass Index 37.7 Const Other: Very tall large corpulent man Chest Other: Chest breath sounds bilaterally, HS 1 in 2 GI Other: Abdomen corpulent, soft. Patient was examined both supine and standing with Valsalva. Bilateral groin exam negative. Genitalia within normal limits. Patient has ap proximally 3 cm incarcerated/irreducible umbilical hernia Assessment & Plan Assessment & Plan (1) Incarcerated umbilical hernia: Code(s): K42.0 - Umbilical hernia with obstruction, without gangrene Category: Surgical Plan Risks, benefits, and alternatives of open umbilical hernia here with mesh were reviewed with the patient included Melissa mid to bleeding, infection, recurrence, numbness, pain, scarring, bowel injury and the patient wishes to proceed. All questions answered. Arrangements were made for this Coding Level of Care Code New Pt Level 5 (84081) Diagnoses Incarcerated umbilical hernia K42.0
[2023-07-29 11:32] VITALS: BP 112/70; PULSE 84; BMI 37.7
== END 2023-07-29 11:55 | disposition home or self-care (01) ==
PROVIDERS: PCP Internal Medicine Geriatric Medicine; Referring Provider Internal Medicine Geriatric Medicine; Visit Provider Surgery
DX: K42.0 Umbilical hernia with obstruction, without gangrene (principal)
CPT/HCPCS: 99204

== ENCOUNTER → 2023-07-29 11:23 | Outpatient (BNVA) | payer MEDICAID, SELFPAY | PROVIDERS: PCP Internal Medicine Geriatric Medicine; Visit Provider Surgery | DX: K42.0 Umbilical hernia with obstruction, without gangrene (principal) | CPT/HCPCS: 99202 ==

== ENCOUNTER 2023-09-16 11:19 | Inpatient (IN) | payer MEDICAID, SELFPAY ==
[2023-09-16] VITALS (8 sets, daily range): BP systolic 109–124; BP diastolic 62–87; PULSE 87–97; RESP 15–20; TEMP 36.3–38.6; O2SAT 92–96; BMI 38.9
--- NOTE | ~2023-09-16 | CT_ITS ---
EXAMINATION: CT CHEST, ABDOMEN AND PELVIS WITH CONTRAST. CLINICAL INFORMATION: Abscess in the back, concern for deep extension. COMPARISON: CTA chest 05/27/2023. TECHNIQUE: Multidetector volumetric imaging was performed of the chest, abdomen and pelvis after the intravenous administration of 85 mL of Omnipaque 350. Sagittal and coronal reformatted images were obtained on the technologist's workstation. This CT examination was performed using dose optimization techniques as appropriate, variously including the following: *Automated exposure control *Adjustment of mA and/or kV according to patient size (this includes techniques or standardized protocols for targeted exams where dose is matched to indication/reason for exam; i.e. extremities or head) *Use of iterative reconstruction technique DLP: 1843 mGy-cm FINDINGS: Evaluation is very limited secondary to patient's positioning, according to the technologist the patient was only able to lay on his right side due to pain. CHEST: Lung: No focal consolidation or significant groundglass disease. Mild subsegmental atelectasis/scarring in the lingula and left lower lobe. Central airways are patent. Mediastinum: The heart is mildly enlarged. No pericardial effusion. No mediastinal or hilar lymphadenopathy. Normal appearance of the thyroid gland. Coronary artery calcifications are present. The ascending thoracic aorta measures up to 5 cm in diameter, unchanged. Pleura: No pleural effusion or pneumothorax. Chest Wall/Axilla: Stable symmetric gynecomastia. Enlarged right axillary lymph nodes, for instance measuring 1.9 x 2.3 cm (9:214). ABDOMEN/PELVIS: Peritoneal Space: No free fluid or free air. Liver, Gallbladder, Biliary Tree: Enlarged liver measuring 22 cm craniocaudally. No discrete focal liver lesion. Decompressed gallbladder with a small calculus (15:29) but no evidence of gallbladder wall thickening nor pericholecystic inflammatory changes to suspect acute cholecystitis. No biliary ductal dilatation. Pancreas: Unremarkable. Spleen: Upper limits of normal size measuring 12 cm craniocaudally. Adrenal Glands: A 2 cm nodule in the medial aspect of the left adrenal gland is unchanged compared to a CT chest from 07/14/2017. Asymmetric thickening of the lateral limb of the left adrenal gland is also unchanged. Stability over years is reassuring, no additional imaging follow-up is recommended. Normal right adrenal gland. Kidneys and Ureters: The kidneys are normal in size, shape, and attenuation. No hydronephrosis, hydroureter, or calculi seen. No perinephric stranding. Bladder: Unremarkable. Gastrointestinal Tract: The stomach and the small bowel are nondilated. Normal appendix. Mild colonic diverticulosis without significant pericolonic inflammatory changes. No evidence of bowel obstruction. Abdominal Wall: Limited evaluation of the anterior abdominal wall as this was not completely included within the field of view. Extensive fat stranding in the right posterior upper abdominal wall with associated overlying skin thickening occupying an area of approximately 9.6 x 5 x 9.5 cm. No organized collection or abscess. No soft tissue air/gas. Inflammation is limited to the subcutaneous soft tissues and fat, the underlying musculature appears within normal limits. Lymphovascular Structures: Mildly enlarged but fairly symmetric bilateral inguinal lymph nodes, most likely reactive in nature measuring up to 1.4 cm in short axis. Atherosclerotic disease. Normal caliber of the abdominal aorta. Pelvic Viscera: Unremarkable. Osseous Structures: No acute or aggressive osseous findings. CT/CT abdomen pelvis w IV con IMPRESSION: 1. Extensive inflammatory changes in the right posterior upper abdominal wall without an organized collection or abscess. 2. Hepatomegaly and hepatic steatosis. 3. Colonic diverticulosis without findings to suspect acute diverticulitis. 4. Nonspecific enlarged right axillary lymph nodes, possibly reactive. Recommend correlation with physical examination and attention on follow-up. 5. Stable aneurysm of the ascending thoracic aorta measuring up to 5 cm in diameter. Recommend follow-up with early intervention specialist.
--- NOTE | 2023-09-16 11:56 | ED_ITS ---
HPI - Skin/Abscess/Foreign Bdy General Chief complaint: Skin/Abscess/Foreign Body Stated complaint: Pimple/cyst? on back Time Seen by Provider: 09/16/23 15:10 Source: patient Mode of arrival: ambulatory Limitations: no limitations History of Present Illness ED Provider: Porsha Ford PA-C HPI narrative: 48-year-old male with history of HTN, HLD, AAA, T2DM, COPD presents for evaluation of a ?pimple/cyst on his right mid-back. About 1.5 weeks ago he squeezed a pimple in his mid-right back and it drained pus. Then over the last week and a half it has grown bigger and become red and painful in the area. He has tried squeezing it a few more times and would drain yellowish/brown fluid, but this morning he tried squeezing it and nothing would come out. It is extremely painful, he cannot put pressure on the area. MD complaint: abscess/boil Onset (ago): week(s) (1.5) Location: back Severity: moderate Severity scale (1-10): 5 Quality: stabbing and constant Pain Consistency: constant Relieving factors: none Exacerbating factors: none Context: none Associated symptoms: denies other symptoms Treatments prior to arrival: attempted to drain pus at home Related Data Home Medications ?Medication ?Instructions ?Recorded ?Confirmed albuterol sulfate 90 mcg/actuation 2 puff inhalation Q6H PRN 12/06/22 07/10/23 aerosol inhaler amlodipine 10 mg tablet 10 mg PO DAILY 12/06/22 07/10/23 aspirin 81 mg tablet,delayed 81 mg PO DAILY 12/06/22 07/10/23 release (Adult Low Dose Aspirin) atorvastatin 40 mg tablet 40 mg PO BEDTIME 12/06/22 07/10/23 empagliflozin 25 mg tablet 25 mg PO DAILY 12/06/22 07/10/23 (Jardiance) glipizide 5 mg tablet 5 mg PO DAILY 12/06/22 07/10/23 lisinopril 20 1 tab PO DAILY 12/06/22 07/10/23 mg-hydrochlorothiazide 25 mg tablet metformin 500 mg tablet 500 mg PO DAILY 12/06/22 07/10/23 metoprolol tartrate 100 mg tablet 100 mg PO DAILY 12/06/22 07/10/23 sertraline 100 mg tablet (Zoloft) 100 mg PO DAILY 12/06/22 07/10/23 umeclidinium 62.5 mcg/actuation 1 inh inhalation DAILY 12/06/22 07/10/23 blister powder for inhalation (Incruse Ellipta) albuterol sulfate 2.5 mg/3 mL mg inhalation QID 02/20/23 07/10/23 (0.083 %) solution for nebulization gabapentin 300 mg capsule 300 mg PO TID 02/20/23 07/10/23 nicotine (polacrilex) 4 mg gum 4 mg PO 02/20/23 07/10/23 tirzepatide 5 mg/0.5 mL 5 mg subcut QWEEK 07/29/23 subcutaneous pen injector ([place]ster) Allergies Allergy/AdvReac Type Severity Reaction Status Date / Time ibuprofen [From MOTRIN] AdvReac Unknown HEARTBURN Verified 09/16/23 12:01 Review of Systems 2 Constitutional: Constitutional: Reports no additional constitutional complaints, Denies chills, Denies fever(s) and Denies night sweats Eyes: Eyes: Reports no additional eye complaints, Denies blurry vision, Denies change in vision, Denies diplopia, Denies eye discharge, Denies loss of vision and Denies eye pain ENT: Denies dizziness Cardiovascular: Cardiovascular: Reports no additional cardiovascular complaints, Denies chest pain, Denies lightheadedness, Denies Loss of Consciousness and Denies dyspnea Respiratory: Respiratory: Reports no additional respiratory complaints and Denies dyspnea Gastrointestinal: Gastrointestinal: Reports no additional gastrointestinal complaints, Denies abdominal pain, Denies melena, Denies hematochezia, Denies change in bowel habits and Denies change in stool character Genitourinary: Genitourinary: Reports no additional male genitourinary complaints, Denies hematuria, Denies oliguria, Denies difficulty urinating, Denies dysuria, Denies urinary frequency, Denies urinary hesitancy, Denies urinary incontinence and Denies urinary urgency Musculoskeletal: Musculoskeletal: Reports no additional musculoskeletal complaints, Denies numbness and Denies tingling Comments: swelling, erythema, and warmth present to the mid right back Neurologic: Denies dizziness, Denies loss of vision, Denies numbness and Denies tingling Psychiatric: Psychiatric: Reports no additional psychiatric complaints Endocrine: Endocrine: Reports no additional endocrine complaints Hematologic/Lymphatic: Hematologic/Lymphatic: Reports no additional hematologic/lymphatic complaints Allergic/Immunologic: Allergic/Immunologic: Reports no additional allergic/immunologic complaints [facility] Past Medical History Attestation statement: The following information was validated with the patient. Source: old records reviewed and nursing notes reviewed Medical History Morbid obesity Hyperlipidemia, unspecified Type 2 diabetes mellitus with unspecified complications Essential hypertension Ascending aortic aneurysm COVID-19 COPD (chronic obstructive pulmonary disease) Smoker Asthma with COPD Somnolence, daytime ROSALEE (obstructive sleep apnea) Obesity (BMI 30-39.9) Surgical History H/O lymph node excision Family History Family History Father No problems noted. Mother No problems noted. Social History Social History Alcohol intake: former Cigarette Packs Per Day: 0.5 Cigarettes Per Day: 10 Years Smoked: 34 Smoked in Last 30 Days: Yes Use of substances other than those prescribed or required for medical reasons: No Advance Directives: No Advance Directives Information Provided: Yes Do you have a plan to hurt others: No Plan Physical Exam 2 Vital Signs: Vital Signs: Last Vital Signs Temp 101.5 F H 09/16/23 19:45 Pulse 93 09/16/23 19:45 Resp 20 09/16/23 19:45 BP 114/67 09/16/23 19:45 Pulse Ox 96 09/16/23 19:45 O2 Del Method Room Air 09/16/23 19:45 BMI result Body Mass Index 38.9 Const: General: cooperative, no acute distress, alert and awake Nutritional Appearance: well nourished Orientation/consciousness: patient oriented x3 Limitations: no limitations HEENT: Head: Yes normal to inspection and Yes atraumatic Ears: hearing grossly normal bilaterally and external ears normal General nose exam: Normal external nose present, no nasal discharge noted and no epistaxis Face and sinus: Yes normal facial exam, No abrasion and No laceration Mouth: Normal oral and palatal mucosa present, no drooling and no muffled voice Eyes: General: appearance normal, both eyes and all related structures P eriorbital: periorbital findings normal Eyelids: Yes eyelids normal C onjunctivae: conjunctivae normal Pupils: Equal, round and reactive pupils present EOM: EOMs intact bilaterally Neck: Neck: Yes normal visual inspection, Yes full ROM and Yes no lymphadenopathy Chest: Chest palpation & inspection: normal inspection of the chest Resp: Effort & Inspection: normal respiratory effort and able to speak in complete sentences GI: Inspection: Yes normal to inspection Back/Spine/Pelvis: Back/spine/pelvis image: 1. large area of erythema, warmth, and induration Neuro: General: patient oriented x3 and moves all extremities Cranial nerves: Yes Equal, round and reactive pupils present Cognition (Neuro): n ormal cognition Motor exam (neuro): 5/5 motor strength present throughout Sensory Exam: Normal double simultaneous stimulation for sensation C oordination: [id number] test normal Extrem: General: Yes normal to inspection, Yes full ROM and Yes capillary refill normal Psych: Appearance: grossly normal Mental Status: mental status grossly normal Affect: normal affect Attitude: cooperative Thought process: N ormal thought process present Thought content: Normal thought content present Insight: Good insight present (Psych) Course Course Course Narrative: This is a Rapid Medical Exam performed in triage by Janis Wall PA-C. Full HPI, ROS and PE to be performed by primary ED provider. 48 year-old M w/ PMHx HLD, DM, asthma/COPD, presenting to the ED c/o pimple to back x1 week that he popped at home w/drainage x2 days. Pain worse today. denies fever PE: low grade temp 99.4, +erythematous indurated area to R flank with warmth & ttp. No fluctuance. no active drainage at present Plan: Labs, blood Cx, Abx, pain control -1515--called and spoke with patient & informed him that his blood work is concerning and he may need admission to the hospital however needs full evaluation. Patient states he could no longer wait in the waiting room, is home & feeling better lying down. States he called his doctor & has an appointment tomorrow morning at 11:00AM. I strongly encouraged him to return to the ED Medications Administered Discontinued Medications Generic Name Dose Route Start Last Admin Trade Name Freq PRN Reason Stop Dose Admin Acetaminophen 975 mg 09/16/23 19:50 09/16/23 20:02 Acetaminophen 325 Mg Tablet PO 09/16/23 19:51 975 mg ONCE ONE Administration Hydromorphone HCl 1 mg 09/16/23 20:04 09/16/23 20:19 Hydromorphone Hcl 1 Mg/Ml Syringe IVPUSH 09/16/23 20:05 1 mg ONCE ONE Administration Protocol Piperacillin Sod/Tazobactam 50 mls @ 100 mls/hr 09/16/23 17:34 09/16/23 18:12 Sod 3.375 gm/ Sodium Chloride IV 09/16/23 18:03 Infused ONCE ONE Infusion Vancomycin HCl 2,000 mg in 500 mls @ 250 mls/hr 09/16/23 17:45 09/16/23 17:49 Vancomycin/Ns IV 09/16/23 19:44 250 mls/hr ONCE ONE Administration Iohexol 100 ml 09/16/23 18:09 09/16/23 18:14 Iohexol 350 Mg/Ml 100 Ml Infus..Btl IV 09/16/23 18:10 85 ml ONCE ONE Administration Morphine Sulfate 4 mg 09/16/23 18:47 09/16/23 19:07 Morphine Sulfate 4 Mg/Ml Cartridge IVPUSH 09/16/23 18:48 4 mg ONCE ONE Administration Protocol Ondansetron HCl 4 mg 09/16/23 18:47 09/16/23 19:07 Ondansetron Hcl 4 Mg/2 Ml Vial IVPUSH 09/16/23 18:48 4 mg ONCE ONE Administration Medical Decision Making Medical Decision Making MDM Narrative: Patient is a 48 year old assigned male at with a history of DM, HTN, AAA, COPD, and ROSALEE presenting to the emergency department today with right upper back swelling, erythema, and warmth. Patient's physical exam was as noted in the physical exam portion of this note. Patient's blood work showed an elevated WBC count of 25, ESR of 84, and CRP of 22.67. Patient's CT chest/abdomen/pelvis showed extensive inflammatory changes in the right posterior upper abdominal wall without an organized collection or abscess. Patient's clinical presentation is not consistent with sepsis (@2015). I spoke to the hospitalist team who agreed to admission. I explained my physical exam findings as well as all test results to the patient. I answered all questions asked by the patient. Patient was given IV Zosyn and vancomycin. Patient verbalized agreement and understanding with this treatment plan and admission. Differential Diagnosis Differential Diagnoses: The differential diagnosis associated with the presentation includes Cellulitis Abscess Admission/Observation Consideration of admission/observation: Escalation of care including admission/observation considered Patient admitted Consult Healthcare Provider Management of the patient was discussed with: Hospitalist (agreed to admission as noted in the MDM Rationale portion of this note. ) Lab Data [facility] Lab Attestation statement: I reviewed the patient's lab results. My interpretation of these results are in the MDM Rationale portion of this note. 09/16/23 13:07 09/16/23 13:07 Labs: Lab Results 09/16/23 09/16/23 Range/Units 13:07 17:25 WBC 25.0 H (4.8-10.8) X10*3/uL RBC 4.08 L D (4.60-5.80) X10*6/uL Hgb 12.3 L D (14.0-18.0) g/dl Hct 37.8 L D (42.0-52.0) % MCV 92.6 (80.0-98.0) fL MCH 30.1 (27.0-33.0) pg MCHC 32.5 (31.0-36.0) g/dl RDW 13.2 (11.0-16.0) % Plt Count 258 (160-400) X10*3/uL MPV 9.6 (9.4-12.4) fL Immature Gran % (Auto) 0.7 H (0.0-0.4) % Neut % (Auto) 86.9 H (45-73) % Lymph % (Auto) 4.6 L (20-40) % [place] % (Auto) 6.5 (2-11) % Eos % (Auto) 0.9 (0-4) % Baso % (Auto) 0.4 (0-2) % Lymph # (Auto) 1.2 (1.2-4.9) X10*3/uL [place] # (Auto) 1.6 H (0.1-1.2) X10*3/uL Eos # (Auto) 0.2 (0.0-0.4) X10*3/uL Baso # (Auto) 0.1 (0.0-0.2) X10*3/uL Abs Immat Gran (auto) 0.18 H (0.00-0.03) X10*3/uL Absolute Neuts (auto) 21.7 H (2.0-8.3) x10*3/uL Absolute Nucleated RBC 0.000 (0.0-0.012) X10*3/uL Nucleated RBC % (auto) 0.0 (0.0-0.2) /100WBC Smear Tech's Comments VERIFIED ESR 84 H (0-15) MM/HR Sodium 137 (135-145) mmol/L Potassium 4.5 D (3.3-5.1) mmol/L Chloride 99 (96-108) mmol/L Carbon Dioxide 30 H (22-29) mmol/L Anion Gap 13 (12-20) BUN 11 (9-16) mg/dL Creatinine 1.05 (0.5-1.4) mg/dL Estim Creat Clear Calc 132.4 Estimated GFR > 60 Random Glucose 199 H (60-115) mg/dL Lactic Acid 2.0 (0.5-2.0) mmol/L Calcium 10.2 (8.4-10.2) mg/dL Total Bilirubin 0.5 (0.0-1.0) mg/dL Direct Bilirubin 0.2 (0.0-0.5) mg/dL AST 9 (5-37) U/L ALT 11 (0-40) U/L Alkaline Phosphatase 121 H (39-117) U/L C-Reactive Protein 22.67 H (< or = 0.50) mg/dL Total Protein 8.2 H (6.5-8.0) g/dL Albumin 4.0 (3.5-5.0) g/dL Independent Interpretation I performed an independent interpretation of an: CT Scan Interpretation: My interpretation is in agreement with the radiologist's impression of these imaging studies. - EXAMINATION: CT CHEST, ABDOMEN AND PELVIS WITH CONTRAST. CLINICAL INFORMATION: Abscess in the back, concern for deep extension. COMPARISON: CTA chest 05/27/2023. TECHNIQUE: Multidetector volumetric imaging was performed of the chest, abdomen and pelvis after the intravenous administration of 85 mL of Omnipaque 350. Sagittal and coronal reformatted images were obtained on the technologist's workstation. This CT examination was performed using dose optimization techniques as appropriate, variously including the following: *Automated exposure control *Adjustment of mA and/or kV according to patient size (this includes techniques or standardized protocols for targeted exams where dose is matched to indication/reason for exam; i.e. extremities or head) *Use of iterative reconstruction technique DLP: 1843 mGy-cm FINDINGS: Evaluation is very limited secondary to patient's positioning, according to the technologist the patient was only able to lay on his right side due to pain. CHEST: Lung: No focal consolidation or significant groundglass disease. Mild subsegmental atelectasis/scarring in the lingula and left lower lobe. Central airways are patent. Mediastinum: The heart is mildly enlarged. No pericardial effusion. No mediastinal or hilar lymphadenopathy. Normal appearance of the thyroid gland. Coronary artery calcifications are present. The ascending thoracic aorta measures up to 5 cm in diameter, unchanged. Pleura: No pleural effusion or pneumothorax. Chest Wall/Axilla: Stable symmetric gynecomastia. Enlarged right axillary lymph nodes, for instance measuring 1.9 x 2.3 cm (9:214). ABDOMEN/PELVIS: Peritoneal Space: No free fluid or free air. Liver, Gallbladder, Biliary Tree: Enlarged liver measuring 22 cm craniocaudally. No discrete focal liver lesion. Decompressed gallbladder with a small calculus (15:29) but no evidence of gallbladder wall thickening nor pericholecystic inflammatory changes to suspect acute cholecystitis. No biliary ductal dilatation. Pancreas: Unremarkable. Spleen: Upper limits of normal size measuring 12 cm craniocaudally. Adrenal Glands: A 2 cm nodule in the medial aspect of the left adrenal gland is unchanged compared to a CT chest from 07/14/2017. Asymmetric thickening of the lateral limb of the left adrenal gland is also unchanged. Stability over years is reassuring, no additional imaging follow-up is recommended. Normal right adrenal gland. Kidneys and Ureters: The kidneys are normal in size, shape, and attenuation. No hydronephrosis, hydroureter, or calculi seen. No perinephric stranding. Bladder: Unremarkable. Gastrointestinal Tract: The stomach and the small bowel are nondilated. Normal appendix. Mild colonic diverticulosis without significant pericolonic inflammatory changes. No evidence of bowel obstruction. Abdominal Wall: Limited evaluation of the anterior abdominal wall as this was not completely included within the field of view. Extensive fat stranding in the right posterior upper abdominal wall with associated overlying skin thickening occupying an area of approximately 9.6 x 5 x 9.5 cm. No organized collection or abscess. No soft tissue air/gas. Inflammation is limited to the subcutaneous soft tissues and fat, the underlying musculature appears within normal limits. Lymphovascular Structures: Mildly enlarged but fairly symmetric bilateral inguinal lymph nodes, most likely reactive in nature measuring up to 1.4 cm in short axis. Atherosclerotic disease. Normal caliber of the abdominal aorta. Pelvic Viscera: Unremarkable. Osseous Structures: No acute or aggressive osseous findings. CT/CT chest w IV con IMPRESSION: 1. Extensive inflammatory changes in the right posterior upper abdominal wall without an organized collection or abscess. 2. Hepatomegaly and hepatic steatosis. 3. Colonic diverticulosis without findings to suspect acute diverticulitis. 4. Nonspecific enlarged right axillary lymph nodes, possibly reactive. Recommend correlation with physical examination and attention on follow-up. 5. Stable aneurysm of the ascending thoracic aorta measuring up to 5 cm in diameter. Recommend follow-up with instrument specialist. Dictated By: Tere Valenzuela Signed By: Electronically signed by Tere Valenzuela 09/16/232002 Radiology Impression Discussion of test interpretation with radiology: I have reviewed the radiologist's reading. Chronic Conditions Patient?s care impacted by: Diabetes Critical Care Time Critical Care Time Critical Care Time: Yes Total Critical Care Time: 38 Attestation: I spent 38 minutes of Critical Care Time with this patient. This does not include time spent on separately reported billable procedures. Discharge Plan Discharge Clinical Impression: Cellulitis Patient Disposition: Admitted As Inpatient Prescriptions: No Action Incruse Ellipta 62.5 mcg/actuation blister with device 1 inh inhalation DAILY sertraline [Zoloft] 100 mg tablet 100 mg PO DAILY albuterol sulfate 90 mcg/actuation HFA aerosol inhaler 2 puff inhalation Q6H PRN Jardiance 25 mg tablet 25 mg PO DAILY amlodipine 10 mg tablet 10 mg PO DAILY aspirin [Adult Low Dose Aspirin] 81 mg tablet,delayed release (DR/EC) 81 mg PO DAILY atorvastatin 40 mg tablet 40 mg PO BEDTIME glipizide 5 mg tablet 5 mg PO DAILY lisinopril-hydrochlorothiazide 20-25 mg tablet 1 tab PO DAILY metformin 500 mg tablet 500 mg PO DAILY metoprolol tartrate 100 mg tablet 100 mg PO DAILY gabapentin 300 mg capsule 300 mg PO TID albuterol sulfate 2.5 mg /3 mL (0.083 %) solution for nebulization inhalation QID nicotine (polacrilex) 4 mg gum 4 mg PO Mounjaro 5 mg/0.5 mL pen injector 5 mg subcut QWEEK Print Language: Malagasy
[2023-09-16 13:17] LABS: Basophils Absolute Auto 0.1 X10*3/uL (0.0-0.2); Basophils Percent Auto 0.4 % (0-2); Eosinophils Absolute Auto 0.2 X10*3/uL (0.0-0.4); Eosinophils Percent Auto 0.9 % (0-4); Hematocrit 37.8 % (42.0-52.0); Hemoglobin 12.3 g/dl (14.0-18.0); Imm Gran Abs Auto 0.18 X10*3/uL (0.00-0.03); Imm Gran Pct Auto 0.7 % (0.0-0.4); Lymphocytes Absolute Auto 1.2 X10*3/uL (1.2-4.9); Lymphocytes Percent Auto 4.6 % (20-40); MANUAL DIFF FLAG SCAN; Mean Corpuscular HGB Conc 32.5 g/dl (31.0-36.0); Mean Corpuscular Hemoglobin 30.1 pg (27.0-33.0); Mean Corpuscular Volume 92.6 fL (80.0-98.0); Mean Platelet Volume 9.6 fL (9.4-12.4); Monocytes Absolute Auto 1.6 X10*3/uL (0.1-1.2); Monocytes Percent Auto 6.5 % (2-11); Neutrophils Absolute Auto 21.7 x10*3/uL (2.0-8.3); Neutrophils Percent Auto 86.9 % (45-73); Platelet Count 258 X10*3/uL (160-400); Red Blood Count 4.08 X10*6/uL (4.60-5.80); Red Cell Distribution Width 13.2 % (11.0-16.0); SCAN SMEAR FLAG 1
[2023-09-16 13:28] LABS: Alanine Aminotransferase 11 U/L (0-40); Alkaline Phosphatase 121 U/L (39-117); Anion Gap 13 (12-20); Aspartate Amino Transferase 9 U/L (5-37); Bilirubin Direct 0.2 mg/dL (0.0-0.5); Bilirubin Total 0.5 mg/dL (0.0-1.0); Blood Urea Nitrogen 11 mg/dL (9-16); C Reactive Protein 22.67 mg/dL (< or = 0.50); Calcium 10.2 mg/dL (8.4-10.2); Carbon Dioxide 30 mmol/L (22-29); Chloride 99 mmol/L (96-108); Creatinine Clr Calc Pharmacy 132.4; Estimated Glomerular Filt Rate > 60; Glucose Random 199 mg/dL (60-115); Potassium 4.5 mmol/L (3.3-5.1); Sodium 137 mmol/L (135-145); Total Protein 8.2 g/dL (6.5-8.0)
[2023-09-16 13:48] LABS: SLIDE REVIEW VERIFIED
[2023-09-16 13:55] LABS: Erythrocyte Sedimentation Rate 84 MM/HR (0-15)
[2023-09-16] MEDS: vancomycin/NS 2,000 MG/500 ML PLAST..BAG 250 MG IV (17:49)
[2023-09-16] MEDS: Piperacillin Sodium/Tazobactam 3.375 GM in 0.9 % Sodium Chloride 50 ML IV (17:49)
[2023-09-16] MEDS: iohexoL 350 MG/ML 100 ML INFUS..BTL IV (18:14)
[2023-09-16] MEDS: Morphine Sulfate 4 MG/ML CARTRIDGE IVPUSH (19:07)
[2023-09-16] MEDS: ondansetron HCL 4 MG/2 ML VIAL IVPUSH (19:07)
[2023-09-16] MEDS: Acetaminophen 325 MG TABLET 975 MG PO (20:02)
[2023-09-16] MEDS: HYDROmorphone HCl 1 MG/ML SYRINGE IVPUSH (20:19)
--- NOTE | 2023-09-16 20:45 | PC.NURSE ---
pt reports pain 01/01, PA notified. pt medicated per may. vss. pt also febrile, medicated with tylenol. Hospitalist MD at bedside for admission.
[2023-09-16 21:13] LABS: Glucose, Whole Blood 145 mg/dL (60-115)
--- NOTE | 2023-09-16 21:28 | P.HPHOSP_ITS ---
History of Present Illness Date of Service: 09/16/23 Attending physician on admission: Annemarie Donaldson Chief Complaint: Right back swelling and pain Dick Thakkar is a 48 years old man with past medical history significant for type 2 diabetes on oral hypoglycemic agents, ROSALEE (noncompliant with CPAP), hyperlipidemia, obesity, essential HTN and ascending aortic aneurysm presents to the emergency department complaining of 1 week history of worsening right mid back pain associated with swelling and redness of the skin. Patient stated that it started as a pimple and his squeezed draining some pus. He denied any other associated symptoms such as nausea, vomiting, fevers or chills. He denies similar changes in the past. Patient denied any acute cardiopulmonary, gastrointestinal or genitourinary symptoms. He has been going tobacco smoker -smokes very few cigarettes daily. In the ED, he was found to have stable vital signs. Temperature 101.5. Blood workup was significant for mild leukocytosis of 25.0 hemoglobin is 12.3 which is around baseline and platelets are normal. CRP is 22.67. There is no lactic acidosis. LFTs are unremarkable except for slight elevation of alk-phos. Renal function is normal. Chest, abdomen pelvis CT scan showed extensive inflammatory changes in the right posterior upper abdominal wall without an organized collection or abscess, colonic diverticulosis w/o diverticulitis, hepatic steatosis and stable aneurysm of the ascending aorta (5 cm). ED tx: Zosyn 3.375 mg IV, vancomycin 2 g IV, IV contrast, morphine 4 mg IV, Zofran 4 mg IV, Tylenol 975 mg p.o., Dilaudid 1 g IV Review of Systems 2 Review of Systems: All 12 systems were reviewed and normal except as noted in HPI. [facility] Medical History Morbid obesity Hyperlipidemia, unspecified Type 2 diabetes mellitus with unspecified complications Essential hypertension Ascending aortic aneurysm COVID-19 COPD (chronic obstructive pulmonary disease) Smoker Asthma with COPD Somnolence, daytime ROSALEE (obstructive sleep apnea) Obesity (BMI 30-39.9) Family History Father No problems noted. Mother No problems noted. Surgical History H/O lymph node excision Social History Alcohol intake: former Cigarette Packs Per Day: 0.5 Cigarettes Per Day: 10 Years Smoked: 34 Smoked in Last 30 Days: Yes Use of substances other than those prescribed or required for medical reasons: No Advance Directives: No Advance Directives Information Provided: Yes Do you have a plan to hurt others: No Plan Meds Allergies Allergy/AdvReac Type Severity Reaction Status Date / Time ibuprofen [From MOTRIN] AdvReac Unknown HEARTBURN Verified 09/16/23 12:01 Active Medications: Current Medications Acetaminophen (Acetaminophen 325 Mg Tablet) 975 mg PO Q6H PRN PRN Reason: Pain, Mild (Pain Scale 1-3), fever or headache Enoxaparin Sodium (Enoxaparin Sodium 40 Mg/0.4 Ml Syringe) 40 mg SUBCUT Q24H BRENDA Glucose (Glucose Gel 15 Gm Gel..Gram.) 15 gm PO Q15M PRN; Protocol PRN Reason: per Hypoglycemia Standing Ord. Piperacillin Sod/Tazobactam (Sod 3.375 gm/ Sodium Chloride) 50 mls @ 100 mls/hr IV Q6H BRENDA Dextrose (D10) 250 mls @ 750 mls/hr IV Q15M PRN; Protocol PRN Reason: per Hypoglycemia Standing Ord. Insulin Human Lispro (Insulin Lispro 100 Unit/Ml 3 Ml Vial) 0 unit SUBCUT QIDACHS [facility]; Protocol Last Admin: 09/16/23 21:13 Dose: Not Given Oxycodone HCl (Oxycodone Hcl Immed Release 5 Mg Tablet) 5 mg PO Q6H PRN PRN Reason: Pain, Severe (Pain Scale 7-10) Pharmacy Consult (Consult Rx Vancomycin Dosing) 1 each MISCELLANE DAILY PRN PRN Reason: Consult order Sodium Chloride (0.9 % Sodium Chloride Flush 3 Ml Syringe) 3 ml IVFLUSH QSHIFT [facility] Home Medications ?Medication ?Instructions ?Recorded ?Confirmed ?Last Taken ?Type albuterol sulfate 90 mcg/actuation 2 puff inhalation Q6H PRN 12/06/22 07/10/23 Unknown History aerosol inhaler amlodipine 10 mg tablet 10 mg PO DAILY 12/06/22 07/10/23 Unknown History aspirin 81 mg tablet,delayed 81 mg PO DAILY 12/06/22 07/10/23 Unknown History release (Adult Low Dose Aspirin) atorvastatin 40 mg tablet 40 mg PO BEDTIME 12/06/22 07/10/23 Unknown History empagliflozin 25 mg tablet 25 mg PO DAILY 12/06/22 07/10/23 Unknown History (Jardiance) glipizide 5 mg tablet 5 mg PO DAILY 12/06/22 07/10/23 Unknown History lisinopril 20 1 tab PO DAILY 12/06/22 07/10/23 Unknown History mg-hydrochlorothiazide 25 mg tablet metformin 500 mg tablet 500 mg PO DAILY 12/06/22 07/10/23 Unknown History metoprolol tartrate 100 mg tablet 100 mg PO DAILY 12/06/22 07/10/23 Unknown History sertraline 100 mg tablet (Zoloft) 100 mg PO DAILY 12/06/22 07/10/23 Unknown History umeclidinium 62.5 mcg/actuation 1 inh inhalation DAILY 12/06/22 07/10/23 Unknown History blister powder for inhalation (Incruse Ellipta) albuterol sulfate 2.5 mg/3 mL mg inhalation QID 02/20/23 07/10/23 Unknown History (0.083 %) solution for nebulization gabapentin 300 mg capsule 300 mg PO TID 02/20/23 07/10/23 Unknown History nicotine (polacrilex) 4 mg gum 4 mg PO 02/20/23 07/10/23 Unknown History tirzepatide 5 mg/0.5 mL 5 mg subcut QWEEK 07/29/23 Unknown History subcutaneous pen injector (Mounjaro) Physical Exam 2 Vital Signs and Narrative: Vital Signs: Last Vital Signs Temp 99.3 F 09/16/23 20:54 Pulse 97 09/16/23 20:54 Resp 15 09/16/23 20:54 BP 117/76 09/16/23 20:54 Pulse Ox 94 09/16/23 20:54 O2 Del Method Room Air 09/16/23 20:54 BMI result Body Mass Index 38.9 Constitutional - Awake and Alert, No apparent distress. Looks uncomfortable due to pain. Obese. Pleasant. Cooperative. HEENT - PERRL, EOMI Heart - RRR. (+) murmur. Lungs - Normal lung expansion, Normal respiratory effort, No respiratory distress, CTA bilaterally Abdomen - NT / ND; +BS; No rebound or guarding Extremities - no calf tenderness bilaterally, no swelling Back - Right posterior flank: Area of erythema, swelling and tenderness. No spontaneous drainage observed. Skin - Warm/Dry Neurological - Alert & oriented x3. No focal weakness grossly noted. No facial droop. Normal speech Psychological - Appropriate affect Results Labs 09/16/23 13:07 09/16/23 13:07 Labs: Laboratory Results - last 24 hr 09/16/23 09/16/23 09/16/23 13:07 17:25 21:07 MCV 92.6 MCH 30.1 MCHC 32.5 RDW 13.2 Plt Count 258 MPV 9.6 Immature Gran % (Auto) 0.7 H Neut % (Auto) 86.9 H Lymph % (Auto) 4.6 L [place] % (Auto) 6.5 Eos % (Auto) 0.9 Baso % (Auto) 0.4 Lymph # (Auto) 1.2 [place] # (Auto) 1.6 H Eos # (Auto) 0.2 Baso # (Auto) 0.1 Abs Immat Gran (auto) 0.18 H Absolute Neuts (auto) 21.7 H Absolute Nucleated RBC 0.000 Nucleated RBC % (auto) 0.0 Smear Tech's Comments VERIFIED ESR 84 H Anion Gap 13 Estim Creat Clear Calc 132.4 Estimated GFR > 60 POC Glucose 145 H Random Glucose 199 H Lactic Acid 2.0 Calcium 10.2 Total Bilirubin 0.5 Direct Bilirubin 0.2 AST 9 ALT 11 Alkaline Phosphatase 121 H C-Reactive Protein 22.67 H Total Protein 8.2 H Albumin 4.0 Imaging Radiologist's Impressions: Impressions Abdomen/Pelvis CT 09/16/23 18:42 IMPRESSION: 1. Extensive inflammatory changes in the right posterior upper abdominal wall without an organized collection or abscess. 2. Hepatomegaly and hepatic steatosis. 3. Colonic diverticulosis without findings to suspect acute diverticulitis. 4. Nonspecific enlarged right axillary lymph nodes, possibly reactive. Recommend correlation with physical examination and attention on follow-up. 5. Stable aneurysm of the ascending thoracic aorta measuring up to 5 cm in diameter. Recommend follow-up with obstetrics specialist. Chest CT 09/16/23 18:42 IMPRESSION: 1. Extensive inflammatory changes in the right posterior upper abdominal wall without an organized collection or abscess. 2. Hepatomegaly and hepatic steatosis. 3. Colonic diverticulosis without findings to suspect acute diverticulitis. 4. Nonspecific enlarged right axillary lymph nodes, possibly reactive. Recommend correlation with physical examination and attention on follow-up. 5. Stable aneurysm of the ascending thoracic aorta measuring up to 5 cm in diameter. Recommend follow-up with obstetrics specialist. Assessment and Plan (1) Essential hypertension: Status: Acute (2) Cellulitis: Qualifiers: Site of cellulitis: trunk Site of cellulitis of trunk: back Qualified Code(s): L03.312 - Cellulitis of back [any part except buttock] Status: Acute (3) Morbid obesity: Status: Acute (4) Hyperlipidemia, unspecified: Qualifiers: Hyperlipidemia type: unspecified Qualified Code(s): E78.5 - Hyperlipidemia, unspecified Status: Acute (5) Type 2 diabetes mellitus with unspecified complications: Status: Acute (6) Ascending aortic aneurysm: Qualifiers: Presence of rupture: without rupture Qualified Code(s): I71.21 - Aneurysm of the ascending aorta, without rupture Status: Acute (7) Smoker: Status: Acute Plan Dick Thakkar is a 48 y/o man admitted with: * Right posterior flank cellulitis, extensive; no fluids collection noted on CT scan. Admit to hospitalist service. Continue empiric IV antibiotic therapy with Zosyn and vancomycin. Check nasal MRSA. Blood cultures were obtained - will follow results. * Type 2 diabetes mellitus. Continue glipizide. Metformin on hold due to recent administration of IV contrast. BG checks before meals at bedtime. Insulin sliding scale. Diabetic diet. * Essential hypertension. Continue metoprolol, amlodipine and lisinopril. * Hyperlipidemia. Continue atorvastatin. * Morbid obesity. BMI 38.9 kg/m2. Encourage weight loss. * ROSALEE. Noncompliant with CPAP (not well tolerated). * COPD -no home oxygen . Not in acute exacerbation. Continue inhalers. * Neuropathy. Continue gabapentin. * Ascending aortic aneurysm, chronic and stable. No acute symptoms reported. F/U as an outpatient with vascular surgeon. * Tobacco dependence. Tobacco cessation education. DVT prophylaxis: Lovenox Code status: Full Patient will need hospitalization for at least 2 midnight for right posterior flank cellulitis treatment with IV antibiotic in the setting of multiple medical comorbidities including diabetes mellitus/immunocompromised state. Quality Stroke Does the patient have a stroke diagnosis?: No VTE Prior VTE?: No VTE Risk Level:: Medical - moderate - high VTE Device Contraindication: Treatment Not Indicated VTE Drug Contraindication: N/A - Med Ordered
--- NOTE | 2023-09-16 22:19 | PHA.PROG ---
Admission Date/Time: September 16, 2023 20:50 Indication: skin Weight in k.9 kg Serum Creatinine - Last 168 Hours 09/16/23 13:07 Creatinine 1.05 Estimated CrCl and GFR - Last 168 Hours 09/16/23 13:07 Estim Creat Clear Calc 132.4 Estimated GFR > 60 Vancomycin Loading Dose: 2,000mg Current Vancomycin Dosing Regimen: 750mg Q8H Vancomycin Monitoring using AUC goal of 400 - 600 range with trough as surrogate marker: 410 mL/hr, and predicted trough 14.7mg/L Date and Time for next Vancomycin Level to be drawn: 09/16 at 1600 Pharmacist Comments on Vancomycin Plan: Vancomycin dosing will take advantage of [employer] as a clinical decision support tool that uses Bayesian modeling to calculate individual patient's pharmacokinetic parameters and forecast the patient's drug concentration time course with the target goal AUC 24 range of 400 - 600 mg/L/hr.
--- NOTE | 2023-09-16 22:54 | PHA.MEDREC ---
Pharmacy Consult ? Medication Reconciliation Pharmacy has completed the medication reconciliation. Confirmed medications with patient. He stated to me that his doctor has been playing around with his High Blood Pressure medication and switching back and forth from a few different ones, but the patient was able to confirm he is taking Spironolactone 25mg once daily. He is also on Monjaro once weekly, he takes it every saturday and he confirmed he took it this past saturday.
[2023-09-17] MEDS: oxyCODONE HCl Immed Release 5 MG TABLET PO (00:10)
[2023-09-17] MEDS: ondansetron HCL 4 MG/2 ML VIAL IVPUSH (01:08)
[2023-09-17] MEDS: Piperacillin Sodium/Tazobactam 3.375 GM in 0.9 % Sodium Chloride 50 ML IV ×2 (01:18→06:24)
[2023-09-17] MEDS: 0.9 % Sodium Chloride Flush 3 ML SYRINGE IVFLUSH (01:24)
[2023-09-17] MEDS: Ketorolac Tromethamine 30 MG/ML VIAL IVPUSH (01:47)
[2023-09-17] MEDS: vancomycin HCL 750 MG in 0.9 % Sodium Chloride 250 ML 265 MG IV (02:11)
[2023-09-17 03:44] VITALS: BP 142/91; PULSE 105; RESP 18; TEMP 36.3; O2SAT 97
[2023-09-17] MEDS: Magnesium Hydrox/Alum Hydrox 30 ML ORAL.SUSP PO (04:48)
[2023-09-17 06:52] LABS: Anion Gap 17 (12-20); Basophils Absolute Auto 0.1 X10*3/uL (0.0-0.2); Basophils Percent Auto 0.3 % (0-2); Blood Urea Nitrogen 15 mg/dL (9-16); Carbon Dioxide 24 mmol/L (22-29); Chloride 101 mmol/L (96-108); Creatinine Clr Calc Pharmacy 125.2; Estimated Glomerular Filt Rate > 60; Glucose Random 207 mg/dL (60-115); Hematocrit 37.4 % (42.0-52.0); Hemoglobin 12.4 g/dl (14.0-18.0); Imm Gran Abs Auto 0.17 X10*3/uL (0.00-0.03); Imm Gran Pct Auto 0.7 % (0.0-0.4); Lymphocytes Absolute Auto 0.8 X10*3/uL (1.2-4.9); Lymphocytes Percent Auto 3.2 % (20-40); MANUAL DIFF FLAG SCAN; Mean Corpuscular HGB Conc 33.2 g/dl (31.0-36.0); Mean Corpuscular Hemoglobin 30.2 pg (27.0-33.0); Mean Platelet Volume 10.2 fL (9.4-12.4); Monocytes Percent Auto 4.1 % (2-11); Neutrophils Absolute Auto 22.4 x10*3/uL (2.0-8.3); Neutrophils Percent Auto 91.7 % (45-73); Platelet Count 259 X10*3/uL (160-400); Potassium 3.8 mmol/L (3.3-5.1); Red Blood Count 4.11 X10*6/uL (4.60-5.80); SCAN SMEAR FLAG 1; Sodium 138 mmol/L (135-145); White Blood Count 24.4 X10*3/uL (4.8-10.8)
[2023-09-17 07:02] LABS: Estimated Average Glucose 154 mg/dL
[2023-09-17 07:05] LABS: Calcium 9.9 mg/dL (8.4-10.2)
--- NOTE | 2023-09-17 07:21 | P.DS_ITS ---
DS: Providers Provider Date of Service: 09/17/23 Date of admission: 09/16/23 20:50 Primary care physician: Ming Espinal MD DS: Diagnosis Discharge Diagnosis (1) Essential hypertension: Status: Acute (2) Cellulitis: Status: Acute (3) Morbid obesity: Status: Acute (4) Hyperlipidemia, unspecified: Status: Acute (5) Type 2 diabetes mellitus with unspecified complications: Status: Acute (6) Ascending aortic aneurysm: Status: Acute (7) Smoker: Status: Acute DS: Summary Hospital Course Hospital Course: from initial hpi: 48 years old man with past medical history significant for type 2 diabetes on oral hypoglycemic agents, ROSALEE (noncompliant with CPAP), hyperlipidemia, obesity, essential HTN and ascending aortic aneurysm presents to the emergency department complaining of 1 week history of worsening right mid back pain associated with swelling and redness of the skin. Patient stated that it started as a pimple and his squeezed draining some pus. He denied any other associated symptoms such as nausea, vomiting, fevers or chills. He denies similar changes in the past. Patient denied any acute cardiopulmonary, gastrointestinal or genitourinary symptoms. He has been going tobacco smoker -smokes very few cigarettes daily. In the ED, he was found to have stable vital signs. Temperature 101.5. Blood workup was significant for mild leukocytosis of 25.0 hemoglobin is 12.3 which is around baseline and platelets are normal. CRP is 22.67. There is no lactic acidosis. LFTs are unremarkable except for slight elevation of alk-phos. Renal function is normal. Chest, abdomen pelvis CT scan showed extensive inflammatory changes in the right posterior upper abdominal wall without an organized collection or abscess, colonic diverticulosis w/o diverticulitis, hepatic steatosis and stable aneurysm of the ascending aorta (5 cm). ED tx: Zosyn 3.375 mg IV, vancomycin 2 g IV, IV contrast, morphine 4 mg IV, Zofran 4 mg IV, Tylenol 975 mg p.o., Dilaudid 1 g IV hospital course: Patient was admitted for sepsis due to right posterior flank cellulitis. He was started on broad-spectrum IV antibiotics, however, patient decided to leave against medical advice. He has aware of the risks of doing so including . He will be given suboptimal treatment with p.o. Bactrim. For incidental noting of his ascending aortic aneurysm he should continue to follow up outpatient with vascular. For diabetes was continued on insulin. For hypertension was continue metoprolol, amlodipine, lisinopril. For hyperlipidemia was continue statin. For morbid obesity weight loss is recommended. For ROSALEE noncompliant with CPAP. For COPD he was stable. For neuropathy was continued on gabapentin. Time Attestation Discharge Coordination Time (in mins): 32 Quality: Safe Use of Opioids Does Pt have an Active Cancer Diagnosis on the Problem List?: No Quality: Stroke Does the patient have a stroke diagnosis?: No Physical Exam Vital Signs: Vital Signs: Last Vital Signs Temp 97.4 F 09/17/23 03:44 Pulse 105 H 09/17/23 03:44 Resp 18 09/17/23 03:44 BP 142/91 H 09/17/23 03:44 Pulse Ox 97 09/17/23 03:44 O2 Del Method Room Air 09/17/23 03:44 BMI result Body Mass Index 38.9 Back - Right posterior flank: Area of erythema, swelling and tenderness DS: Data Data Completed and Pending Labs on day of discharge: Laboratory Results - last 24 hr 09/16/23 09/16/23 09/16/23 13:07 17:25 21:07 WBC 25.0 H RBC 4.08 L D Hgb 12.3 L D Hct 37.8 L D MCV 92.6 MCH 30.1 MCHC 32.5 RDW 13.2 Plt Count 258 MPV 9.6 Immature Gran % (Auto) 0.7 H Neut % (Auto) 86.9 H Lymph % (Auto) 4.6 L [place] % (Auto) 6.5 Eos % (Auto) 0.9 Baso % (Auto) 0.4 Lymph # (Auto) 1.2 [place] # (Auto) 1.6 H Eos # (Auto) 0.2 Baso # (Auto) 0.1 Abs Immat Gran (auto) 0.18 H Absolute Neuts (auto) 21.7 H Absolute Nucleated RBC 0.000 Nucleated RBC % (auto) 0.0 Smear Tech's Comments VERIFIED ESR 84 H Sodium 137 Potassium 4.5 D Chloride 99 Carbon Dioxide 30 H Anion Gap 13 BUN 11 Creatinine 1.05 Estim Creat Clear Calc 132.4 Estimated GFR > 60 POC Glucose 145 H Random Glucose 199 H Estimat Average Glucose Hemoglobin A1c % Lactic Acid 2.0 Calcium 10.2 Total Bilirubin 0.5 Direct Bilirubin 0.2 AST 9 ALT 11 Alkaline Phosphatase 121 H C-Reactive Protein 22.67 H Total Protein 8.2 H Albumin 4.0 09/17/23 05:31 WBC RBC Hgb Hct MCV MCH MCHC RDW Plt Count MPV Immature Gran % (Auto) Neut % (Auto) Lymph % (Auto) [place] % (Auto) Eos % (Auto) Baso % (Auto) Lymph # (Auto) [place] # (Auto) Eos # (Auto) Baso # (Auto) Abs Immat Gran (auto) Absolute Neuts (auto) Absolute Nucleated RBC Nucleated RBC % (auto) Smear Tech's Comments ESR Sodium 138 Potassium 3.8 Chloride 101 Carbon Dioxide 24 Anion Gap 17 BUN 15 Creatinine 1.11 Estim Creat Clear Calc 125.2 Estimated GFR > 60 POC Glucose Random Glucose 207 H Estimat Average Glucose 154 Hemoglobin A1c % 7.0 H Lactic Acid Calcium 9.9 Total Bilirubin Direct Bilirubin AST ALT Alkaline Phosphatase C-Reactive Protein Total Protein Albumin Discharge Plan Discharge Anticipated Discharge Date/Time: 09/17/23 07:18 Patient Disposition: Left Against Medical Advice Discharge Diagnosis: ascending aneurysm, sepsis, cellultiis Referrals: Name,MD Ming [Primary Care Provider] - 1 Week Discharge Medications: New sulfamethoxazole-trimethoprim [Bactrim DS] 800-160 mg tablet 1 tab PO Q12H Qty: 14 0RF Continued spironolactone 25 mg tablet 25 mg PO DAILY trazodone 100 mg tablet 100 mg PO BEDTIME PRN (Reason: insomnia) Incruse Ellipta 62.5 mcg/actuation blister with device 1 inh inhalation DAILY sertraline [Zoloft] 100 mg tablet 100 mg PO DAILY albuterol sulfate 90 mcg/actuation HFA aerosol inhaler 2 puff inhalation Q6H PRN (Reason: Shortness Of Breath Or Wheezing) aspirin [Adult Low Dose Aspirin] 81 mg tablet,delayed release (DR/EC) 81 mg PO DAILY atorvastatin 40 mg tablet 40 mg PO BEDTIME glipizide 5 mg tablet 5 mg PO DAILY metformin 500 mg tablet 500 mg PO DAILY gabapentin 300 mg capsule 300 mg PO DAILY PRN (Reason: Pain) Mounjaro 5 mg/0.5 mL pen injector 5 mg subcut [place] Discharge Orders: Discharge Order (Routine); Ordered 09/17/23 Ordered By: Perez Huff Diet: Advance to usual diet Activity on Discharge: As tolerated Stand Alone Forms: Patient Portal Discharge page Print Language: Andorran Care Plan Goals: recovery Health Concerns: sepsis, aneurysm Plan of Treatment: leaving AMA, can use 7 days bactrim (suboptimal treatment), follow up with pcp/vascular for anuerysm Assessment: see above
[2023-09-17 07:28] LABS: SLIDE REVIEW VERIFIED
[2023-09-17 10:39] LABS: MRSA Nasal PCR POSITIVE (Negative); SA Nasal PCR POSITIVE (Negative)
== END 2023-09-17 07:33 | disposition left against medical advice (07) | DRG 383 ==
LOC: HO.ED 20:33 → HO.EDOVER 20:56 → HO.S3 21:27
PROVIDERS: Physician Assistant; Admitting Provider Internal Medicine; Emergency Provider Internal Medicine; PCP Internal Medicine Geriatric Medicine; Visit Provider Internal Medicine
DX: L03.312 Cellulitis of back [any part except buttock and flank] (principal); E11.40 Type 2 diabetes mellitus with diabetic neuropathy, unspecified; I71.21 Aneurysm of the ascending aorta, without rupture; K76.0 Fatty (change of) liver, not elsewhere classified; G47.33 Obstructive sleep apnea (adult) (pediatric); E78.5 Hyperlipidemia, unspecified; E66.01 Morbid (severe) obesity due to excess calories; Z68.38 Body mass index [BMI] 38.0-38.9, adult; I10 Essential (primary) hypertension; J44.9 Chronic obstructive pulmonary disease, unspecified; F17.210 Nicotine dependence, cigarettes, uncomplicated; Z71.6 Tobacco abuse counseling; Z91.199 Patient's noncompliance with other medical treatment and regimen due to unspecified reason; Z79.82 Long term (current) use of aspirin; Z79.84 Long term (current) use of oral hypoglycemic drugs; Z79.85 Long-term (current) use of injectable non-insulin antidiabetic drugs; Z79.899 Other long term (current) drug therapy
CPT/HCPCS: 36415; 71260; 74177; 80048; 80076; 82947; 83036; 83605; 85025; 85652; 86140; 87040; 87640; 87641; 99221; 99285; J1170; J1885; J2270; J2405; J2543; J3370; Q9967

== ENCOUNTER → 2023-09-16 20:50 | Outpatient (BNV) | payer MEDICAID, SELFPAY | PROVIDERS: Admitting Provider Internal Medicine; Emergency Provider Internal Medicine; PCP Internal Medicine Geriatric Medicine; Visit Provider Internal Medicine | DX: I10 Essential (primary) hypertension (principal); L03.312 Cellulitis of back [any part except buttock and flank]; E66.01 Morbid (severe) obesity due to excess calories; Z68.38 Body mass index [BMI] 38.0-38.9, adult; E11.8 Type 2 diabetes mellitus with unspecified complications; I71.21 Aneurysm of the ascending aorta, without rupture; F17.200 Nicotine dependence, unspecified, uncomplicated | CPT/HCPCS: 99222; 99239 ==

== ENCOUNTER 2023-09-19 10:43 | Outpatient (REF) | payer MEDICAID, SELFPAY ==
[2023-09-19 11:49] LABS: Basophils Absolute Auto 0.1 X10*3/uL (0.0-0.2); Basophils Percent Auto 0.5 % (0-2); Eosinophils Absolute Auto 0.5 X10*3/uL (0.0-0.4); Eosinophils Percent Auto 2.1 % (0-4); Hematocrit 41.7 % (42.0-52.0); Hemoglobin 13.5 g/dl (14.0-18.0); Imm Gran Abs Auto 0.17 X10*3/uL (0.00-0.03); Imm Gran Pct Auto 0.7 % (0.0-0.4); Lymphocytes Absolute Auto 1.8 X10*3/uL (1.2-4.9); Lymphocytes Percent Auto 7.6 % (20-40); MANUAL DIFF FLAG SCAN; Mean Corpuscular HGB Conc 32.4 g/dl (31.0-36.0); Mean Corpuscular Volume 92.7 fL (80.0-98.0); Mean Platelet Volume 9.9 fL (9.4-12.4); Monocytes Absolute Auto 1.6 X10*3/uL (0.1-1.2); Monocytes Percent Auto 6.7 % (2-11); Neutrophils Absolute Auto 19.3 x10*3/uL (2.0-8.3); Neutrophils Percent Auto 82.4 % (45-73); Platelet Count 361 X10*3/uL (160-400); Red Cell Distribution Width 13.2 % (11.0-16.0); SCAN SMEAR FLAG 1; White Blood Count 23.4 X10*3/uL (4.8-10.8)
[2023-09-19 12:16] LABS: SLIDE REVIEW VERIFIED
[2023-09-19 12:23] LABS: Alanine Aminotransferase 10 U/L (0-40); Alkaline Phosphatase 148 U/L (39-117); Anion Gap 18 (12-20); Aspartate Amino Transferase 14 U/L (5-37); Bilirubin Total 0.4 mg/dL (0.0-1.0); Blood Urea Nitrogen 35 mg/dL (9-16); C Reactive Protein 13.76 mg/dL (< or = 0.50); Calcium 9.8 mg/dL (8.4-10.2); Carbon Dioxide 26 mmol/L (22-29); Chloride 97 mmol/L (96-108); Estimated Glomerular Filt Rate 33; Glucose Random 142 mg/dL (60-115); Potassium 3.8 mmol/L (3.3-5.1); Sodium 137 mmol/L (135-145); Total Protein 8.5 g/dL (6.5-8.0)
== END 2023-09-19 10:44 | disposition home or self-care (01) ==
LOC: HO.HHCL 10:43
PROVIDERS: Visit Provider Internal Medicine
DX: A41.9 Sepsis, unspecified organism (principal)
CPT/HCPCS: 36415; 80053; 85025; 86140

== ENCOUNTER 2023-09-19 17:14 | Emergency (ER) | payer MEDICAID, SELFPAY ==
--- NOTE | 2023-09-19 17:21 | ED.GENADULT ---
HPI - General Adult General Chief complaint: General Medical Stated complaint: ? abscess lower back Related Data Home Medications ?Medication ?Instructions ?Recorded ?Confirmed albuterol sulfate 90 mcg/actuation 2 puff inhalation Q6H PRN 12/06/22 09/20/23 aerosol inhaler Shortness Of Breath Or Wheezing aspirin 81 mg tablet,delayed 81 mg PO DAILY 12/06/22 09/20/23 release (Adult Low Dose Aspirin) atorvastatin 40 mg tablet 40 mg PO BEDTIME 12/06/22 09/20/23 glipizide 5 mg tablet 5 mg PO DAILY 12/06/22 09/20/23 metformin 500 mg tablet 500 mg PO DAILY 12/06/22 09/20/23 sertraline 100 mg tablet (Zoloft) 100 mg PO DAILY 12/06/22 09/20/23 umeclidinium 62.5 mcg/actuation 1 inh inhalation DAILY 12/06/22 09/20/23 blister powder for inhalation (Incruse Ellipta) gabapentin 300 mg capsule 300 mg PO DAILY PRN Pain 02/20/23 09/20/23 tirzepatide 5 mg/0.5 mL 5 mg subcut MO 07/29/23 09/20/23 subcutaneous pen injector (Chester) spironolactone 25 mg tablet 25 mg PO DAILY 09/16/23 09/20/23 trazodone 100 mg tablet 100 mg PO BEDTIME PRN insomnia 09/16/23 09/20/23 Previous Rx's ?Medication ?Instructions ?Recorded sulfamethoxazole 800 1 tab PO Q12H #14 tabs 09/17/23 mg-trimethoprim 160 mg tablet (Bactrim DS) Allergies Allergy/AdvReac Type Severity Reaction Status Date / Time ibuprofen [From MOTRIN] AdvReac Unknown HEARTBURN Verified 09/20/23 11:57 [facility] Past Medical History Medical History Morbid obesity Hyperlipidemia, unspecified Type 2 diabetes mellitus with unspecified complications Essential hypertension Ascending aortic aneurysm COVID-19 COPD (chronic obstructive pulmonary disease) Smoker Asthma with COPD Somnolence, daytime ROSALEE (obstructive sleep apnea) Obesity (BMI 30-39.9) Surgical History H/O lymph node excision Family History Family History Father No problems noted. Mother No problems noted. Social History Social History Household Members: Spouse, Family and Children Housing: Apartment Do you presently have visiting nurse or other home services: No Alcohol intake: former Patient Tobacco Use Status: Current everyday Tobacco user Tobacco use type: Cigarette Cigarette Packs Per Day: 0.5 Cigarettes Per Day: 1 Years Smoked: 34 Physical Exam ED Vital Signs: BMI result Body Mass Index 38.9 Course Course Course Narrative: This is an RME: Additional HPI, ROS, PE not included below will be deferred to primary provider. RME assessment and note performed by: Kya Nolasco PA-C 48-year-old male with history of HTN, HLD, AAA, T2DM, COPD presents for evaluation of a ?pimple/cyst on his right mid-back. Patient was admitted on September 15 to an abscess. He left AMA. He is here but states that he can not stay here all night. He states that he has been taking the antibiotics that he has been prescribed with some relief. He states that he currently can not stay any longer, does not want to have any blood work done. He states that he may return in several days to be re-evaluated. Discharge Plan Discharge Clinical Impression: Cellulitis Qualifiers: Site of cellulitis: trunk Site of cellulitis of trunk: back Qualified Code(s): L03.312 - Cellulitis of back [any part except buttock] Patient Disposition: Left W/O Completing Treatment Prescriptions: No Action spironolactone 25 mg tablet 25 mg PO DAILY trazodone 100 mg tablet 100 mg PO BEDTIME PRN (Reason: insomnia) sulfamethoxazole-trimethoprim [Bactrim DS] 800-160 mg tablet 1 tab PO Q12H Qty: 14 0RF Incruse Ellipta 62.5 mcg/actuation blister with device 1 inh inhalation DAILY sertraline [Zoloft] 100 mg tablet 100 mg PO DAILY albuterol sulfate 90 mcg/actuation HFA aerosol inhaler 2 puff inhalation Q6H PRN (Reason: Shortness Of Breath Or Wheezing) aspirin [Adult Low Dose Aspirin] 81 mg tablet,delayed release (DR/EC) 81 mg PO DAILY atorvastatin 40 mg tablet 40 mg PO BEDTIME glipizide 5 mg tablet 5 mg PO DAILY metformin 500 mg tablet 500 mg PO DAILY gabapentin 300 mg capsule 300 mg PO DAILY PRN (Reason: Pain) Mounjaro 5 mg/0.5 mL pen injector 5 mg subcut MO Interventions: LWBS Worksheet Last Done: 09/19/23 18:07 Discharge Date/Time: 09/19/23 18:08
[2023-09-19 17:39] VITALS: BMI 38.9
== END 2023-09-19 18:08 | disposition left against medical advice (07) ==
PROVIDERS: Emergency Provider Emergency Medicine; PCP Internal Medicine Geriatric Medicine
DX: L02.212 Cutaneous abscess of back [any part, except buttock and flank] (principal); E11.9 Type 2 diabetes mellitus without complications; I10 Essential (primary) hypertension; E78.5 Hyperlipidemia, unspecified; J45.909 Unspecified asthma, uncomplicated; F17.210 Nicotine dependence, cigarettes, uncomplicated; Z79.82 Long term (current) use of aspirin; Z79.02 Long term (current) use of antithrombotics/antiplatelets; Z79.899 Other long term (current) drug therapy; Z79.84 Long term (current) use of oral hypoglycemic drugs
CPT/HCPCS: 99281

== ENCOUNTER 2023-09-20 11:49 | Inpatient (IN) | payer MEDICAID, SELFPAY ==
[2023-09-20] VITALS (19 sets, daily range): BP systolic 80–128; BP diastolic 49–82; PULSE 75–84; RESP 12–20; TEMP 36.8–37.1; O2SAT 92–99; BMI 37.4; BMI 37.7; BMI 37.6
--- NOTE | 2023-09-20 12:09 | ED.SKABFB ---
HPI - Skin/Abscess/Foreign Bdy General Chief complaint: Nausea/Vomiting/Diarrhea Stated complaint: Nausea septic Time Seen by Provider: 09/20/23 12:01 Source: patient, EMS and old records reviewed Mode of arrival: EMS Limitations: no limitations History of Present Illness ED Provider: KIRBY LORENZO narrative: 48 yo male with PMH of DM, HLD, aortic aneurysm, HTN, ROSALEE, asthma, seen here on 09/15 and 09/18 but left AMA placed on bactrim on Saturday had CT scan showing large thickened skin area but no abscess he comes back today feeling weak and lightheaded rash has not extended beyond the line drawn by PCP but he does note he might have accidentally double dosed his BP meds after error with blister pack ( not the first time . metoprolol spironolactone amlodipine. He denies fevers. He came back as someone told him he was septic MD complaint: rash and lesion Onset (ago): week(s) (1) Tetanus up to date: yes Location: back Severity: moderate Quality: dull and constant Pain Consistency: constant Relieving factors: none Exacerbating factors: palpation Context: other (started as pimple) Associated symptoms: chills Treatments prior to arrival: antibiotic Related Data Home Medications ?Medication ?Instructions ?Recorded ?Confirmed albuterol sulfate 90 mcg/actuation 2 puff inhalation Q6H PRN 12/06/22 09/20/23 aerosol inhaler Shortness Of Breath Or Wheezing aspirin 81 mg tablet,delayed 81 mg PO DAILY 12/06/22 09/20/23 release (Adult Low Dose Aspirin) atorvastatin 40 mg tablet 40 mg PO BEDTIME 12/06/22 09/20/23 glipizide 5 mg tablet 5 mg PO DAILY 12/06/22 09/20/23 metformin 500 mg tablet 500 mg PO DAILY 12/06/22 09/20/23 sertraline 100 mg tablet (Zoloft) 100 mg PO DAILY 12/06/22 09/20/23 umeclidinium 62.5 mcg/actuation 1 inh inhalation DAILY 12/06/22 09/20/23 blister powder for inhalation (Incruse Ellipta) gabapentin 300 mg capsule 300 mg PO DAILY PRN Pain 02/20/23 09/20/23 tirzepatide 5 mg/0.5 mL 5 mg subcut MO 07/29/23 09/20/23 subcutaneous pen injector (Chester) spironolactone 25 mg tablet 25 mg PO DAILY 09/16/23 09/20/23 trazodone 100 mg tablet 100 mg PO BEDTIME PRN insomnia 09/16/23 09/20/23 Previous Rx's ?Medication ?Instructions ?Recorded sulfamethoxazole 800 1 tab PO Q12H #14 tabs 09/17/23 mg-trimethoprim 160 mg tablet (Bactrim DS) Allergies Allergy/AdvReac Type Severity Reaction Status Date / Time ibuprofen [From MOTRIN] AdvReac Unknown HEARTBURN Verified 09/20/23 11:57 Review of Systems Review of Systems: Constitutional : No Fever, pos Chills ENT/Mouth : No sore throat, No Rhinorrhea Eyes: No Eye Pain, No Swelling, No Redness Cardiovascular : No Chest Pain, No SOB Respiratory : No Cough, No Sputum Gastrointestinal : pos Nausea, No Vomiting, No Diarrhea, No abdominal Pain Genitourinary : No Dysuria, No Hematuria Musculoskeletal : No joint pain, No Myalgias, No Joint Swelling Skin : pos Skin Lesions, positive skin rash Neuro : No Weakness, No Numbness, No Headache Psych : No Anxiety, No Depression Heme/Lymph: No Bruising, No Bleeding,No Lymphadenopathy Endocrine : No Polyuria, No Polydipsia All other systems reviewed and are negative [facility] Past Medical History Attestation statement: The following information was validated with the patient. Source: old records reviewed Medical History Morbid obesity Hyperlipidemia, unspecified Type 2 diabetes mellitus with unspecified complications Essential hypertension Ascending aortic aneurysm COVID-19 COPD (chronic obstructive pulmonary disease) Smoker Asthma with COPD Somnolence, daytime ROSALEE (obstructive sleep apnea) Obesity (BMI 30-39.9) Surgical History H/O lymph node excision Family History Family History Father No problems noted. Mother No problems noted. Social History Social History Household Members: Spouse Housing: House Alcohol intake: former Patient Tobacco Use Status: Current everyday Tobacco user Tobacco use type: Cigarette Cigarette Packs Per Day: 0.5 Cigarettes Per Day: 1 Years Smoked: 34 Smoked in Last 30 Days: Yes Use of substances other than those prescribed or required for medical reasons: No Are you DNR?: No Advance Directives: No Advance Directives Information Provided: Yes Do you have a plan to hurt others: No Plan Physical Exam Vital Signs: Vital Signs: Last Vital Signs Temp 98.7 F 09/20/23 15:50 Pulse 80 09/20/23 15:50 Resp 20 09/20/23 15:50 BP 100/62 09/20/23 15:50 Pulse Ox 99 09/20/23 15:50 O2 Del Method Nasal Cannula 09/20/23 15:50 O2 Flow Rate 2 09/20/23 15:50 BMI result Body Mass Index 37.7 Appearance: Alert. Oriented X3. No acute distress. mentating well with lower BPs Eyes: Pupils equal, round and reactive to light. ENT: Pharynx normal. Neck: Normal inspection. Neck supple. CVS: Normal heart rate and rhythm. Pulses normal. Respiratory: No respiratory distress. Breath sounds normal. Abdomen: Soft and nontender. Back: large soft boggy area with overlying erythema to R flank 9x6cm see pic below Skin: Skin warm and dry. Normal skin color. Normal skin turgor. Extremities: No lower extremity edema. No calf ttp Neuro: Oriented X 3. No motor deficit. No sensory deficit. Course Course Course Narrative: PATIENT IS OBESE IBW = 87KG WHICH WOULD BE 2610 mL of fluid - 3l of IVF ordered Reevaluation(s) Reevaluation #1: patient was taken to OR at 225pm but he was not resuscitated by fluids and his pressures remained low. I did not discuss him with ICU yet as he did not get his full fluids. He was taken for drainage by surgery 231pm I am trying to contact entry level finance as the patient is no longer in the ED and is in OR and will need admission to hospital from OR. I asked that the patient be brought back from the OR as his case also included accidental overdose and I wanted to make sure he had appropriate disposition and all involved knew about the SINA/overdose and my concerns. Dr. Benson and Dr. Hernandez were present after the patient was brought back to the OR then it was agreed he could go to the OR and the ICU would admit after. Dr. Adiga will admit after OR Medications Administered Generic Name Dose Route Start Last Admin Trade Name Kyle PRN Reason Stop Dose Admin Hydromorphone HCl 0.5 mg 09/20/23 15:54 09/20/23 15:57 Hydromorphone Hcl 0.5 Mg/0.5 Ml Syringe IVPUSH 09/20/23 21:55 0.5 mg Q5M PRN Administration Pain, Severe (Pain Scale 7-10) Discontinued Medications Generic Name Dose Route Start Last Admin Trade Name Kyle PRN Reason Stop Dose Admin Glucagon 1 mg 09/20/23 12:42 09/20/23 12:55 Glucagon Hcl 1 Mg Vial IVPUSH 09/20/23 12:43 1 mg ONCE ONE Administration Lactated Ringer's 1,000 mls @ 999 mls/hr 09/20/23 12:02 09/20/23 13:32 Lr IV 09/20/23 13:02 Infused .Q1H1M ONE Infusion Lactated Ringer's 1,000 mls @ 999 mls/hr 09/20/23 12:15 09/20/23 13:33 Lr IV 09/20/23 13:15 Infused .Q1H1M BRENDA Infusion Piperacillin Sod/Tazobactam 50 mls @ 100 mls/hr 09/20/23 12:02 09/20/23 13:32 Sod 3.375 gm/ Sodium Chloride IV 09/20/23 12:31 Infused ONCE ONE Infusion Lactated Ringer's 1,000 mls @ 999 mls/hr 09/20/23 12:26 09/20/23 14:20 Lr IV 09/20/23 13:26 999 mls/hr .Q1H1M ONE Administration Calcium Gluconate 2 gm in 100 mls @ 50 mls/hr 09/20/23 12:42 09/20/23 12:55 Calcium Gluconate IV 09/20/23 14:41 50 mls/hr ONCE ONE Administration Ondansetron HCl 4 mg 09/20/23 12:42 09/20/23 12:55 Ondansetron Hcl 4 Mg/2 Ml Vial IVPUSH 09/20/23 12:43 4 mg ONCE ONE Administration Medical Decision Making Medical Decision Making MDM Narrative: 48 yo male with PMH of DM, HLD, aortic aneurysm, HTN, ROSALEE, asthma, seen here on 09/15 and 09/18 but left AMA here with c/o chills, not improving, still having pain on R flank - will obtain labs, IVF but elevated BNP in past will give 2L LR albumin empiric zosyn and surgical consult Differential Diagnosis Differential Diagnoses: The differential diagnosis associated with the presentation includes cellulitis, abscess, dehydration accidental overdose Admission/Observation Consideration of admission/observation: Escalation of care including admission/observation considered admission given SINA low BP to go to ICU from OR Consult Healthcare Provider Management of the patient was discussed with: Senior Bioinformatics Scientist (David aware) Dr. Hernandez will need to I+D this under sedation/anesthesia Dr. Kelley galloway admit after OR Lab Data MDM Lab Attestation statement: I reviewed the patient's lab results. 09/20/23 12:17 09/20/23 12:17 Labs: Lab Results 09/20/23 09/20/23 09/20/23 Range/Units 12:17 12:18 14:22 WBC 22.4 H (4.8-10.8) X10*3/uL RBC 4.17 L (4.60-5.80) X10*6/uL Hgb 12.9 L (14.0-18.0) g/dl Hct 37.7 L (42.0-52.0) % MCV 90.4 (80.0-98.0) fL MCH 30.9 (27.0-33.0) pg MCHC 34.2 (31.0-36.0) g/dl RDW 13.2 (11.0-16.0) % Plt Count 406 H (160-400) X10*3/uL MPV 9.6 (9.4-12.4) fL Immature Gran % (Auto) 0.8 H (0.0-0.4) % Neut % (Auto) 81.8 H (45-73) % Lymph % (Auto) 9.6 L (20-40) % [place] % (Auto) 6.1 (2-11) % Eos % (Auto) 1.3 (0-4) % Baso % (Auto) 0.4 (0-2) % Lymph # (Auto) 2.2 (1.2-4.9) X10*3/uL [place] # (Auto) 1.4 H (0.1-1.2) X10*3/uL Eos # (Auto) 0.3 (0.0-0.4) X10*3/uL Baso # (Auto) 0.1 (0.0-0.2) X10*3/uL Abs Immat Gran (auto) 0.19 H (0.00-0.03) X10*3/uL Absolute Neuts (auto) 18.3 H (2.0-8.3) x10*3/uL Absolute Nucleated RBC 0.000 (0.0-0.012) X10*3/uL Nucleated RBC % (auto) 0.0 (0.0-0.2) /100WBC Sodium 134 L (135-145) mmol/L Potassium 3.8 (3.3-5.1) mmol/L Chloride 98 (96-108) mmol/L Carbon Dioxide 24 (22-29) mmol/L Anion Gap 16 (12-20) BUN 40 H (9-16) mg/dL Creatinine 2.38 H (0.5-1.4) mg/dL Estim Creat Clear Calc 57.2 Estimated GFR 29 POC Glucose 139 H (60-115) mg/dL Random Glucose 195 H (60-115) mg/dL Lactic Acid 1.3 (0.5-2.0) mmol/L Calcium 9.6 (8.4-10.2) mg/dL Magnesium 2.8 H (1.6-2.6) mg/dL Total Bilirubin 0.3 (0.0-1.0) mg/dL Direct Bilirubin 0.2 (0.0-0.5) mg/dL AST 15 (5-37) U/L ALT 11 (0-40) U/L Alkaline Phosphatase 122 H (39-117) U/L Total Protein 8.4 H (6.5-8.0) g/dL Albumin 3.9 (3.5-5.0) g/dL Lipase 45 (8-78) U/L Procalcitonin 0.50 ng/mL Independent Interpretation I performed an independent interpretation of an: EKG Interpretation: Rate: 79 Rhythm: NSR Kegley: normal Normal P waves. Normal BLAYNE. incomplete RBBB ST T wave : no BRENT, normal qTC: 442 prior studies: no acute ischemia The study has been interpreted contemporaneously by me. . Independent Historian Clinical information obtained from an independent historian. History obtained from or confirmed by: EMS External Record Review External record reviewed: Inpatient record Critical Care Time Critical Care Time Critical Care Time: Yes Total Critical Care Time: 45 Attestation: 3L bolus, IV antibiotics, admission, review of records, medical consult I attest to this time spent taking care of the patient Discharge Plan Discharge Clinical Impression: SINA (acute kidney injury), Abscess of flank Elevated WBC count Qualifiers: Leukocytosis type: unspecified Qualified Code(s): D72.829 - Elevated white blood cell count, unspecified Accidental overdose Qualifiers: Encounter type: initial encounter Qualified Code(s): T50.901A - Poisoning by unspecified drugs, medicaments and biological substances, accidental (unintentional), initial encounter Patient Disposition: Admitted As Inpatient
[2023-09-20 12:27] LABS: MANUAL DIFF FLAG NO
[2023-09-20 12:28] LABS: Basophils Absolute Auto 0.1 X10*3/uL (0.0-0.2); Basophils Percent Auto 0.4 % (0-2); Eosinophils Absolute Auto 0.3 X10*3/uL (0.0-0.4); Eosinophils Percent Auto 1.3 % (0-4); Hematocrit 37.7 % (42.0-52.0); Hemoglobin 12.9 g/dl (14.0-18.0); Imm Gran Abs Auto 0.19 X10*3/uL (0.00-0.03); Imm Gran Pct Auto 0.8 % (0.0-0.4); Lymphocytes Absolute Auto 2.2 X10*3/uL (1.2-4.9); Lymphocytes Percent Auto 9.6 % (20-40); Mean Corpuscular HGB Conc 34.2 g/dl (31.0-36.0); Mean Corpuscular Hemoglobin 30.9 pg (27.0-33.0); Mean Corpuscular Volume 90.4 fL (80.0-98.0); Mean Platelet Volume 9.6 fL (9.4-12.4); Monocytes Absolute Auto 1.4 X10*3/uL (0.1-1.2); Monocytes Percent Auto 6.1 % (2-11); Neutrophils Absolute Auto 18.3 x10*3/uL (2.0-8.3); Neutrophils Percent Auto 81.8 % (45-73); Platelet Count 406 X10*3/uL (160-400); Red Blood Count 4.17 X10*6/uL (4.60-5.80); Red Cell Distribution Width 13.2 % (11.0-16.0); White Blood Count 22.4 X10*3/uL (4.8-10.8)
[2023-09-20] MEDS: Lactated Ringers 1,000 ML 999 ML IV ×3 (12:28→14:20)
[2023-09-20] MEDS: Piperacillin Sodium/Tazobactam 3.375 GM in 0.9 % Sodium Chloride 50 ML IV ×2 (12:28→18:11)
[2023-09-20 12:36] LABS: Lactic Acid 1.3 mmol/L (0.5-2.0)
--- NOTE | 2023-09-20 12:47 | ECG_ITS ---
Test Reason : ? SEPSIS Blood Pressure : / mmHG Vent. Rate : 079 BPM Atrial Rate : 079 BPM P-R Int : 170 ms QRS Dur : 094 ms QT Int : 386 ms P-R-T Axes : 063 051 047 degrees QTc Int : 442 ms Normal sinus rhythm Incomplete right bundle branch block Borderline ECG When compared to the previous EKG of No significant changes seen Referred By: Daphney Lee Electronically Signed By:ILA HARDEN MD
[2023-09-20 12:50] LABS: Alanine Aminotransferase 11 U/L (0-40); Albumin Level 3.9 g/dL (3.5-5.0); Alkaline Phosphatase 122 U/L (39-117); Anion Gap 16 (12-20); Aspartate Amino Transferase 15 U/L (5-37); Bilirubin Direct 0.2 mg/dL (0.0-0.5); Bilirubin Total 0.3 mg/dL (0.0-1.0); Blood Urea Nitrogen 40 mg/dL (9-16); Calcium 9.6 mg/dL (8.4-10.2); Carbon Dioxide 24 mmol/L (22-29); Chloride 98 mmol/L (96-108); Creatinine Clr Calc Pharmacy 57.2; Estimated Glomerular Filt Rate 29; Glucose Random 195 mg/dL (60-115); Lipase 45 U/L (8-78); Magnesium 2.8 mg/dL (1.6-2.6); Potassium 3.8 mmol/L (3.3-5.1); Sodium 134 mmol/L (135-145); Total Protein 8.4 g/dL (6.5-8.0)
[2023-09-20] MEDS: Calcium Gluconate/NaCl,Iso-Osm 2 GM/100 ML PLAST..BAG IV (12:55)
[2023-09-20] MEDS: ondansetron HCL 4 MG/2 ML VIAL IVPUSH (12:55)
[2023-09-20] MEDS: glucagon HCL 1 MG VIAL IVPUSH (12:55)
--- NOTE | 2023-09-20 13:48 | PC.NURSE ---
report given to short stay
--- NOTE | 2023-09-20 13:55 | P.CONGS_ITS ---
History of Present Illness Consult details Consult date: 09/20/23 <Padma Simmons PA-C - Last Filed: 09/20/23 15:20> Requesting physician: Daphney Lee <Padma Simmons PA-C Last Filed: 09/20/23 15:20> Narrative: 48-year-old male with history of HTN, HLD, AAA, T2DM, COPD seen here at [facility] on 09/15 and 09/18 for right back cellulitis however left AMA. He was placed on Bactrim. CT scan at that time showed large area of skin thickening. He came back to the ED feeling weak and lightheaded. He denies fevers. ED reports he may have accidentally double dosed his BP meds after error with blister pack. On metoprolol spironolactone amlodipine. Found to be hypotensive in the ED. Leukocytosis of 22.4. General surgery was consulted for evaluation of the right back cellulitis, r/o abscess. <Padma Simmons PA-C Last Filed: 09/20/23 15:20> Review of Systems 2 Constitutional: Constitutional: Denies chills and Denies fever(s) < Padma Simmons PA-C Last Filed: 09/20/23 15:20> Cardiovascular: Cardiovascular: Denies chest pain and Denies dyspnea < Padma Simmons PA-C Last Filed: 09/20/23 15:20> Respiratory: Respiratory: Denies dyspnea <Padma Simmons PA-C Last Filed: 09/20/23 15:20> Gastrointestinal: Gastrointestinal: Denies nausea and Denies vomiting < MAGGIE Benjamin Last Filed: 09/20/23 15:20> Integumentary/Breasts: Skin/Breast: Reports as per HPI <Padma Simmons PA-C Last Filed: 09/20/23 15:20> [facility] Past Medical History Medical History: Medical History Morbid obesity Hyperlipidemia, unspecified Type 2 diabetes mellitus with unspecified complications Essential hypertension Ascending aortic aneurysm COVID-19 COPD (chronic obstructive pulmonary disease) Smoker Asthma with COPD Somnolence, daytime ROSALEE (obstructive sleep apnea) Obesity (BMI 30-39.9) <Padma Simmons PA-C - Last Filed: 09/20/23 15:20> Family History Family History: Family History Father No problems noted. Mother No problems noted. <Padma Simmons PA-C - Last Filed: 09/20/23 15:20> Surgical History Surgical History: Surgical History H/O lymph node excision <Padma Simmons PA-C - Last Filed: 09/20/23 15:20> Social History Social History: Social History Household Members: Spouse Housing: House Alcohol intake: former Patient Tobacco Use Status: Current everyday Tobacco user Tobacco use type: Cigarette Cigarette Packs Per Day: 0.5 Cigarettes Per Day: 1 Years Smoked: 34 Smoked in Last 30 Days: Yes Use of substances other than those prescribed or required for medical reasons: No Are you DNR?: No Advance Directives: No Advance Directives Information Provided: Yes Do you have a plan to hurt others: No Plan <Padma Simmons PA-C - Last Filed: 09/20/23 15:20> Meds Allergies/Adverse reactions: Allergies Allergy/AdvReac Type Severity Reaction Status Date / Time ibuprofen [From MOTRIN] AdvReac Unknown HEARTBURN Verified 09/20/23 11:57 <Padma Simmons PA-C - Last Filed: 09/20/23 15:20> Active Medications: Current Medications Calcium Gluconate (Calcium Gluconate) 2 gm in 100 mls @ 50 mls/hr IV ONCE ONE Stop: 09/20/23 14:41 Last Admin: 09/20/23 12:55 Dose: 50 mls/hr <Padma Simmons PA-C - Last Filed: 09/20/23 15:20> Home medications: Home Medications ?Medication ?Instructions ?Recorded ?Confirmed ?Last Taken ?Type albuterol sulfate 90 mcg/actuation 2 puff inhalation Q6H PRN 12/06/22 09/20/23 Unknown History aerosol inhaler Shortness Of Breath Or Wheezing aspirin 81 mg tablet,delayed 81 mg PO DAILY 12/06/22 09/20/23 09/16/23 07:00 History release (Adult Low Dose Aspirin) atorvastatin 40 mg tablet 40 mg PO BEDTIME 12/06/22 09/20/23 09/15/23 20:00 History glipizide 5 mg tablet 5 mg PO DAILY 12/06/22 09/20/23 09/16/23 07:00 History metformin 500 mg tablet 500 mg PO DAILY 12/06/22 09/20/23 09/16/23 07:00 History sertraline 100 mg tablet (Zoloft) 100 mg PO DAILY 12/06/22 09/20/23 09/16/23 07:00 History umeclidinium 62.5 mcg/actuation 1 inh inhalation DAILY 12/06/22 09/20/23 09/16/23 07:00 History blister powder for inhalation (Incruse Ellipta) gabapentin 300 mg capsule 300 mg PO DAILY PRN Pain 02/20/23 09/20/23 Unknown History tirzepatide 5 mg/0.5 mL 5 mg subcut MO 07/29/23 09/20/23 09/16/23 History subcutaneous pen injector (Chester) spironolactone 25 mg tablet 25 mg PO DAILY 09/16/23 09/20/23 09/16/23 07:00 History trazodone 100 mg tablet 100 mg PO BEDTIME PRN insomnia 09/16/23 09/20/23 09/15/23 20:00 History <MAGGIE Benjamin Last Filed: 09/20/23 15:20> Physical Exam 2 Vital Signs: Vital Signs: Last Vital Signs Temp 98.4 F 09/20/23 11:53 Pulse 82 09/20/23 13:10 Resp 16 09/20/23 13:10 BP 84/54 L 09/20/23 13:10 Pulse Ox 97 09/20/23 13:10 O2 Del Method Room Air 09/20/23 13:10 BMI result Body Mass Index 37.4 <MAGGIE Benjamin Last Filed: 09/20/23 15:20> Const: Other: uncomfortable appearing <MAGGIE Benjamin Last Filed: 09/20/23 15:20> General: alert and diaphoretic <MAGGIE Benjamin Last Filed: 09/20/23 15:20> Orientation/consciousness: patient oriented x3 <MAGGIE Benjamin Last Filed: 09/20/23 15:20> Resp: Effort & Inspection: normal respiratory effort <MAGGIE Benjamin Last Filed: 09/20/23 15:20> Skin: Other: right mid back with very large area of deep erythema and significant surrounding induration with large fluctuance extending beyond the erythema, central punctate present, area significantly tender area prepped with alcohol and aspirated with 18g needle with large amount of purulence expressed immediately, dry dressing placed <MAGGIE Benjamin Last Filed: 09/20/23 15:20> Neuro: General: patient oriented x3 and moves all extremities <MAGGIE Benjamin Last Filed: 09/20/23 15:20> Results Labs Result diagrams: 09/20/23 12:17 09/20/23 12:17 <MAGGIE Benjamin Last Filed: 09/20/23 15:20> Labs: Abnormal lab results 09/20/23 Range/Units 12:17 WBC 22.4 H (4.8-10.8) X10*3/uL RBC 4.17 L (4.60-5.80) X10*6/uL Hgb 12.9 L (14.0-18.0) g/dl Hct 37.7 L (42.0-52.0) % Plt Count 406 H (160-400) X10*3/uL Immature Gran % (Auto) 0.8 H (0.0-0.4) % Neut % (Auto) 81.8 H (45-73) % Lymph % (Auto) 9.6 L (20-40) % [place] # (Auto) 1.4 H (0.1-1.2) X10*3/uL Abs Immat Gran (auto) 0.19 H (0.00-0.03) X10*3/uL Absolute Neuts (auto) 18.3 H (2.0-8.3) x10*3/uL Sodium 134 L (135-145) mmol/L BUN 40 H (9-16) mg/dL Creatinine 2.38 H (0.5-1.4) mg/dL Random Glucose 195 H (60-115) mg/dL Magnesium 2.8 H (1.6-2.6) mg/dL Alkaline Phosphatase 122 H (39-117) U/L Total Protein 8.4 H (6.5-8.0) g/dL Short CBC 09/20/23 Range/Units 12:17 WBC 22.4 H (4.8-10.8) X10*3/uL Hgb 12.9 L (14.0-18.0) g/dl Hct 37.7 L (42.0-52.0) % Plt Count 406 H (160-400) X10*3/uL BMP 09/20/23 12:17 Sodium 134 L Potassium 3.8 Chloride 98 Carbon Dioxide 24 BUN 40 H Creatinine 2.38 H Calcium 9.6 Liver Function 09/20/23 Range/Units 12:17 Total Bilirubin 0.3 (0.0-1.0) mg/dL Direct Bilirubin 0.2 (0.0-0.5) mg/dL AST 15 (5-37) U/L ALT 11 (0-40) U/L Alkaline Phosphatase 122 H (39-117) U/L Albumin 3.9 (3.5-5.0) g/dL All other labs normal. <Padma Simmons PA-C - Last Filed: 09/20/23 15:20> Assessment and Plan (1) Cellulitis: Qualifiers: Site of cellulitis: trunk Site of cellulitis of trunk: back Qualified Code(s): L03.312 - Cellulitis of back [any part except buttock] < MAGGIE Benjamin Last Filed: 09/20/23 15:20> Status: Acute <MAGGIE Benjamin Last Filed: 09/20/23 15:20> (2) Back abscess: Status: Acute <MAGGIE Benjamin Last Filed: 09/20/23 15:20> 48-year-old male with history of HTN, HLD, AAA, T2DM, COPD presenting with large right back cellulitis and abscess. He is hypotensive likely due to sepsis, and antihypertensive overdose. Recommended proceeding with I&D of the right back abscess in the OR under sedation. Currently being resuscitated with fluids in the ED, to be admitted to ICU following for continued IV abx therapy and treatment. Last PO intake was at 0700 and he is on tirzepatide however this is emergent given the sepsis. <Padma Simmons PA-C - Last Filed: 09/20/23 15:20> Procedures Date of Service Date of Service: 09/20/23 <Padma Simmons PA-C - Last Filed: 09/20/23 15:20> 09/20/23 <Atilio Hernandez MD - Last Filed: 09/20/23 17:01>
--- NOTE | 2023-09-20 14:10 | PC.NURSE ---
PT OFF UNIT TO SHORT STAY
[2023-09-20 14:27] LABS: Glucose, Whole Blood 139 mg/dL (60-115)
--- NOTE | 2023-09-20 14:34 | PC.NURSE ---
I ANSWERED THE PRE-OP PHONE AND THE ED CLINICAL COORDINATOR KITTY STATED THE PATIENT WASN'T MEDICALLY CLEARED BY THE ER DOCTOR AND THAT THE PATIENT HAD TO COME BACK TO THE ER AND THEN BE CLEARED AND ADMITTED TO ICU. MD COATES CAME INTO PRE-OP LOOKING FOR PATIENT AND STATED HE JUST SPOKE TO THE ED DOCTOR AND HE IS OKAY FOR SURGERY. TWO RNS BROUGHT PATIENT TO ER ON MONITOR AND MD COATES WENT TO THE ER.
--- NOTE | 2023-09-20 14:55 | PC.NURSE ---
Pt brought to pre op per Dr Duran and Dr Hernandez. Both aware of pt eating at 0730 AM and last Mounjaro dose given on 09/15. Was requested to bring pt back to ED by clinical coordinator Merissa related to pt not being cleared. Pt was brought back with this consumer loan underwriter and Tiffany RN. Once down in ED was instructed by Dr Hernandez pt is to return to OR now. Once receiving verbal confirmation it was ok from Dr Kohler pt was transported back to OR. Pt remained stable on transport monitor for the entire process. and Dr. Steele aware of pt BP.
--- NOTE | 2023-09-20 14:56 | HO.ANESPROP2 ---
HPI - Anesthesia Eval Consult details Narrative: for I&D abscess right back PMFSH Active Problems Active Problems: All Active Problems Abscess of flank (Acute) Back abscess (Acute) Accidental overdose (Acute) Elevated WBC count (Acute) SINA (acute kidney injury) (Acute) Cellulitis (Acute) Incarcerated umbilical hernia (Acute) Morbid obesity (Acute) Hyperlipidemia, unspecified (Acute) Type 2 diabetes mellitus with unspecified complications (Acute) Essential hypertension (Acute) Ascending aortic aneurysm (Acute) COVID-19 (Acute) COPD (chronic obstructive pulmonary disease) (Acute) Smoker (Acute) Asthma with COPD (Acute) Somnolence, daytime (Acute) ROSALEE (obstructive sleep apnea) (Acute) Obesity (BMI 30-39.9) (Acute) Past Medical History Medical History Morbid obesity Hyperlipidemia, unspecified Type 2 diabetes mellitus with unspecified complications Essential hypertension Ascending aortic aneurysm COVID-19 COPD (chronic obstructive pulmonary disease) Smoker Asthma with COPD Somnolence, daytime ROSALEE (obstructive sleep apnea) Obesity (BMI 30-39.9) Family History Family History Father No problems noted. Mother No problems noted. Family history of problems with anesthesia: No Surgical History Surgical History H/O lymph node excision History of Problems with Anesthesia: No Social History Social History Household Members: Spouse Housing: House Alcohol intake: former Patient Tobacco Use Status: Current everyday Tobacco user Tobacco use type: Cigarette Cigarette Packs Per Day: 0.5 Cigarettes Per Day: 1 Years Smoked: 34 Smoked in Last 30 Days: Yes Use of substances other than those prescribed or required for medical reasons: No Are you DNR?: No Advance Directives: No Advance Directives Information Provided: Yes Do you have a plan to hurt others: No Plan Narrative Narrative: Note that pt has normal MS, normal breathing, nontachypneic. Not grossly septic. Meds Allergies Allergy/AdvReac Type Severity Reaction Status Date / Time ibuprofen [From MOTRIN] AdvReac Unknown HEARTBURN Verified 09/20/23 11:57 Active Medications: Current Medications Acetaminophen (Acetaminophen 325 Mg Tablet) 650 mg PO Q6H PRN PRN Reason: Pain, Mild (Pain Scale 1-3) Heparin Sodium (Porcine) (Heparin Sodium,Porcine 5,000 Unit/Ml Vial) 5,000 unit SUBCUT Q8H BRENDA Hydromorphone HCl (Hydromorphone Hcl 1 Mg/Ml Syringe) 0.5 mg IVPUSH Q6H PRN; Protocol PRN Reason: Pain, Moderate(Pain Scale 4-6) Vancomycin HCl (Vancomycin/Ns) 2,000 mg in 500 mls @ 250 mls/hr IV ONCE ONE Stop: 09/20/23 16:32 Piperacillin Sod/Tazobactam (Sod 3.375 gm/ Sodium Chloride) 50 mls @ 100 mls/hr IV Q8H BRENDA Albumin Human (Kedbumin 25 %) 100 mls @ 100 mls/hr IV Q1H BRENDA Stop: 09/20/23 16:44 Ondansetron HCl (Ondansetron Hcl 4 Mg/2 Ml Vial) 4 mg IVPUSH Q8H PRN PRN Reason: Nausea Home Medications ?Medication ?Instructions ?Recorded ?Confirmed ?Last Taken ?Type albuterol sulfate 90 mcg/actuation 2 puff inhalation Q6H PRN 12/06/22 09/16/23 Unknown History aerosol inhaler Shortness Of Breath Or Wheezing aspirin 81 mg tablet,delayed 81 mg PO DAILY 12/06/22 09/16/23 09/16/23 07:00 History release (Adult Low Dose Aspirin) atorvastatin 40 mg tablet 40 mg PO BEDTIME 12/06/22 09/16/23 09/15/23 20:00 History glipizide 5 mg tablet 5 mg PO DAILY 12/06/22 09/16/23 09/16/23 07:00 History metformin 500 mg tablet 500 mg PO DAILY 12/06/22 09/16/23 09/16/23 07:00 History sertraline 100 mg tablet (Zoloft) 100 mg PO DAILY 12/06/22 09/16/23 09/16/23 07:00 History umeclidinium 62.5 mcg/actuation 1 inh inhalation DAILY 12/06/22 09/16/23 09/16/23 07:00 History blister powder for inhalation (Incruse Ellipta) gabapentin 300 mg capsule 300 mg PO DAILY PRN Pain 02/20/23 09/16/23 Unknown History tirzepatide 5 mg/0.5 mL 5 mg subcut MO 07/29/23 09/16/23 09/09/23 History subcutaneous pen injector (Chester) spironolactone 25 mg tablet 25 mg PO DAILY 09/16/23 09/16/23 09/16/23 07:00 History trazodone 100 mg tablet 100 mg PO BEDTIME PRN insomnia 09/16/23 09/16/23 09/15/23 20:00 History Exam Height,Weight and Vital Signs: Height 6 ft 4 in Weight 140.614 kg Last Vital Signs Temp 98.3 F 09/20/23 14:15 Pulse 84 09/20/23 14:15 Resp 16 09/20/23 14:15 BP 80/49 L 09/20/23 14:15 Pulse Ox 92 09/20/23 14:15 O2 Del Method Room Air 09/20/23 14:15 Pertinent Lab Results Pertinent Lab Results: lLaboratory Tests 09/20/23 09/20/23 09/20/23 12:17 12:18 14:22 WBC 22.4 H RBC 4.17 L Hgb 12.9 L Hct 37.7 L MCV 90.4 MCH 30.9 MCHC 34.2 RDW 13.2 Plt Count 406 H MPV 9.6 Immature Gran % (Auto) 0.8 H Neut % (Auto) 81.8 H Lymph % (Auto) 9.6 L [place] % (Auto) 6.1 Eos % (Auto) 1.3 Baso % (Auto) 0.4 Lymph # (Auto) 2.2 [place] # (Auto) 1.4 H Eos # (Auto) 0.3 Baso # (Auto) 0.1 Abs Immat Gran (auto) 0.19 H Absolute Neuts (auto) 18.3 H Absolute Nucleated RBC 0.000 Nucleated RBC % (auto) 0.0 Sodium 134 L Potassium 3.8 Chloride 98 Carbon Dioxide 24 Anion Gap 16 BUN 40 H Creatinine 2.38 H Estim Creat Clear Calc 57.2 Estimated GFR 29 POC Glucose 139 H Random Glucose 195 H Lactic Acid 1.3 Calcium 9.6 Magnesium 2.8 H Total Bilirubin 0.3 Direct Bilirubin 0.2 AST 15 ALT 11 Alkaline Phosphatase 122 H Total Protein 8.4 H Albumin 3.9 Lipase 45 Procalcitonin 0.50 Airway Mallampati Class: I TM Dist: <=3cm Neck ROM: Full Loose/Missing/Broken Teeth: Yes Heart: ok. See echo BP 81/481 Lungs: sat 92% on RA Assessment and Plan Assessment Anesthesia Assessment: Anesthesia Plan Discussed and Chart Reviewed Final Anesthetic Review Family History of Problems with Anesthesia: No History of Problems with Anesthesia: No NPO: Yes ASA Class: IV and Emergency Final Preanesthetic Review: No Changes in Pt Med Stat, Meds/Allgs Chart Reviewed, Consent Obtained/Reviewed and Anes Risks/Benef Reviewed Patient Risk: High Procedure Risk: Low Anesthetic Plan Anesthetic Plan: Agree w/ Assess. and Plan and TIVA Disposition: Standard PACU
--- NOTE | 2023-09-20 15:12 | PHA.MEDREC ---
Pharmacy Consult ? Medication Reconciliation Pharmacy has completed the medication reconciliation. Confirmed medications with list from discharge packet on 09/17/2023 and note left by Anastasia Tenorio RN. Per Anastasia Tenorio's note patient took his Mounjaro dose Saturday09/16/2023.
[2023-09-20] MEDS: HYDROmorphone HCl 0.5 MG/0.5 ML SYRINGE IVPUSH ×2 (15:57→16:03)
[2023-09-20] MEDS: Acetaminophen 1,000 MG/100 ML PIGGYBACK 400 MG IV (16:08)
--- NOTE | 2023-09-20 17:01 | P.OP_ITS ---
Operative Note Operative Note Date of Service: 09/20/23 Narrative: Preoperative diagnosis: [] Sepsis, massive right flank abscess Postop diagnosis: [] The same Procedure [] incision and drainage and debridement of massive right flank abscess Surgeon: [] David Senior Instructional Designer: [] Iris Type of Anesthesia: [] MAC Indication for surgery: [] Approximately 24 x 15 cm massive complex multi loculated abscess involving the right flank which extended down to the back musculature. Findings: [] Patient brought to the operating room, placed on operative table in supine position, after an adequate level of MAC anesthesia was induced, patient was placed in left lateral decubitus position. Right flank and back area were prepped and draped in usual sterile fashion. Proposed incision site was infiltrated with 0.5% Marcaine/1% lidocaine. Using a transverse incision over the central part of this abscess, final dimensions were as noted above were dissection was carried down through skin, subcutaneous tissue, down into a multiloculated massive abscess cavity. Copious amounts of purulent material were retrieved. Loculations were broken down digitally. Necrotic debris was removed using sharp dissection and Bovie. Wound was irrigated, and secured hemostasis. It was packed with 1-1/2 Kerlix rolls followed by 4x4s and ABD dressing. Sponge, needle, and instrument counts were reported correct. Patient tolerated the procedure well and emerged from anesthesia stable condition. EBL minimal
[2023-09-20] MEDS: HYDROmorphone HCl 1 MG/ML SYRINGE 0.5 MG IVPUSH (17:04)
[2023-09-20] MEDS: Albumin Human 25 % 100 ML IV ×2 (17:05→18:10)
[2023-09-20 17:48] LABS: Lactic Acid 0.9 mmol/L (0.5-2.0)
[2023-09-20 17:50] LABS: Phosphorus 3.8 mg/dL (2.7-4.5)
[2023-09-20] MEDS: Heparin Sodium,Porcine 5,000 UNIT/ML VIAL 5000 UNIT SUBCUT (18:10)
--- NOTE | 2023-09-20 20:22 | PM.CCHP ---
History of Present Illness Date of Service: 09/20/23 Attending physician on admission: Geovany Benson Chief Complaint: Lightheaded and dizziness 48-year-old gentleman with past medical history of hypertension, diabetes mellitus, hyperlipidemia, obstructive sleep apnea was seen in the emergency room earlier this week for rashes in his back, he left AMA and a prescription for Bactrim was sent. Today he accidentally doubled his oral antihypertensives, felt dizzy and lightheaded so presented to the ED. CT scan of his rash on 09/16/2023 did not show any fluid collections but showed thickening of the skin. His wound looked bigger and formed into an abscess so General surgery was consulted, he was taken to operating room for incision and drainage. His labs are significant for leukocytosis 2 WBC count 22,000, acute kidney injury but normal lactate Review of Systems Constitutional: Constitutional: Reports anorexia, Denies body ache(s), Denies chills and Reports difficulty sleeping Eyes: Eyes: Denies blind spots, Denies blurry vision and Denies change in vision ENT: Reports Normal hearing present and Denies bleeding gums Cardiovascular: Cardiovascular: Denies Abdominal Distension, Denies chest pain, Denies chest pain at rest and Denies chest pain with activity Respiratory: Respiratory: Denies chest congestion and Denies cough Gastrointestinal: Gastrointestinal: Denies abdominal pain and Denies bloating Genitourinary: Genitourinary: Denies change in libido and Denies hematuria Musculoskeletal: Musculoskeletal: Reports back pain and Denies myalgias Neurologic: Reports Normal hearing present, Denies Neuro-related abnormal movements, Denies Abnormal speech present and Denies behavioral changes Psychiatric: Psychiatric: Denies behavioral changes and Denies change in libido Endocrine: Endocrine: Denies change in libido [facility] Past Medical History Medical History Morbid obesity Hyperlipidemia, unspecified Type 2 diabetes mellitus with unspecified complications Essential hypertension Ascending aortic aneurysm COVID-19 COPD (chronic obstructive pulmonary disease) Smoker Asthma with COPD Somnolence, daytime ROSALEE (obstructive sleep apnea) Obesity (BMI 30-39.9) Family History Family History Father No problems noted. Mother No problems noted. Surgical History Surgical History H/O lymph node excision Social History Social History Household Members: Spouse, Family and Children Housing: Apartment Do you presently have visiting nurse or other home services: No Alcohol intake: former Patient Tobacco Use Status: Current everyday Tobacco user Tobacco use type: Cigarette Cigarette Packs Per Day: 0.5 Cigarettes Per Day: 1 Years Smoked: 34 Smoked in Last 30 Days: Yes Patient Interested in Nicotine Replacement: No Patient Given Instructions on How to Stop Smoking: No Use of substances other than those prescribed or required for medical reasons: No Currently Displaying Signs/Symptoms of Drug Intoxication Withdrawal: No Have you been hit, kicked, punched, or otherwise hurt by someone within the past year? If so, by whom?: No Do you feel safe in your current relationship?: Yes Is there a partner from a previous relationship who is making you feel unsafe now?: No Are you made to feel afraid or neglected: No Are you DNR?: No Advance Directives: No Advance Directives Information Provided: Yes Do you have a plan to hurt others: No Plan Recently lost weight without trying: No Nutrition Risks: Dental problems Poor oral hygiene: No Meds Allergies Allergy/AdvReac Type Severity Reaction Status Date / Time ibuprofen [From MOTRIN] AdvReac Unknown HEARTBURN Verified 09/20/23 11:57 Active Medications: Current Medications Acetaminophen (Acetaminophen 325 Mg Tablet) 650 mg PO Q6H PRN PRN Reason: Pain, Mild (Pain Scale 1-3) Fentanyl (Fentanyl Citrate/Pf 100 Mcg/2 Ml Vial) 50 mcg IVPUSH Q5M PRN PRN Reason: Pain, Moderate(Pain Scale 4-6) Stop: 09/20/23 21:54 Heparin Sodium (Porcine) (Heparin Sodium,Porcine 5,000 Unit/Ml Vial) 5,000 unit SUBCUT Q8H BRENDA Last Admin: 09/20/23 18:10 Dose: 5,000 unit Hydromorphone HCl (Hydromorphone Hcl 1 Mg/Ml Syringe) 0.5 mg IVPUSH Q6H PRN; Protocol PRN Reason: Pain, Moderate(Pain Scale 4-6) Last Admin: 09/20/23 17:04 Dose: 0.5 mg Hydromorphone HCl (Hydromorphone Hcl 0.5 Mg/0.5 Ml Syringe) 0.5 mg IVPUSH Q5M PRN PRN Reason: Pain, Severe (Pain Scale 7-10) Stop: 09/20/23 21:55 Last Admin: 09/20/23 16:03 Dose: 0.5 mg Piperacillin Sod/Tazobactam (Sod 3.375 gm/ Sodium Chloride) 50 mls @ 100 mls/hr IV Q6H [facility] Last Infusion: 09/20/23 19:22 Dose: Infused Ondansetron HCl (Ondansetron Hcl 4 Mg/2 Ml Vial) 4 mg IVPUSH Q8H PRN PRN Reason: Nausea Sodium Chloride (0.9 % Sodium Chloride Flush 3 Ml Syringe) [address] [facility] Home Medications ?Medication ?Instructions ?Recorded ?Confirmed ?Last Taken ?Type albuterol sulfate 90 mcg/actuation 2 puff inhalation Q6H PRN 12/06/22 09/20/23 Unknown History aerosol inhaler Shortness Of Breath Or Wheezing aspirin 81 mg tablet,delayed 81 mg PO DAILY 12/06/22 09/20/23 09/16/23 07:00 History release (Adult Low Dose Aspirin) atorvastatin 40 mg tablet 40 mg PO BEDTIME 12/06/22 09/20/23 09/15/23 20:00 History glipizide 5 mg tablet 5 mg PO DAILY 12/06/22 09/20/23 09/16/23 07:00 History metformin 500 mg tablet 500 mg PO DAILY 12/06/22 09/20/23 09/16/23 07:00 History sertraline 100 mg tablet (Zoloft) 100 mg PO DAILY 12/06/22 09/20/23 09/16/23 07:00 History umeclidinium 62.5 mcg/actuation 1 inh inhalation DAILY 12/06/22 09/20/23 09/16/23 07:00 History blister powder for inhalation (Incruse Ellipta) gabapentin 300 mg capsule 300 mg PO DAILY PRN Pain 02/20/23 09/20/23 Unknown History tirzepatide 5 mg/0.5 mL 5 mg subcut MO 07/29/23 09/20/23 09/16/23 History subcutaneous pen injector (Chester) spironolactone 25 mg tablet 25 mg PO DAILY 09/16/23 09/20/23 09/16/23 07:00 History trazodone 100 mg tablet 100 mg PO BEDTIME PRN insomnia 09/16/23 09/20/23 09/15/23 20:00 History Physical Exam Vital Signs: Vital Signs: Last Vital Signs Temp 98.8 F 09/20/23 16:35 Pulse 79 09/20/23 20:00 Resp 17 09/20/23 20:00 BP 94/57 L 09/20/23 20:00 Pulse Ox 96 09/20/23 20:00 O2 Del Method Nasal Cannula 09/20/23 20:00 O2 Flow Rate 2 09/20/23 20:00 Oxygen Flow Rate 3 09/20/23 16:58 BMI result Body Mass Index 37.6 General: Not in acute distress, but he is ill appearing and tired appearing Nutritional Appearance: well nourished and overweight Eyes: appearance normal, both eyes and all related structures; Alignment and Position: alignment normal and position normal Neck: No lymphadenopathy, no thyromegaly Resp: bilateral air entry equal, occasional added sounds present Cardio: Regular rate, regular rhythm; Heart sounds: S1 normal heart sound present and S2 normal heart sound present GI: soft, nontender, no guarding, no hepatosplenomegaly : bladder normal to inspection, bladder normal to palpation, no renal angle tenderness Skin: Large area of rash with fluid collection noted in the lower back Neuro: oriented to person, oriented to place, oriented to time and moves all extremities Neuro: Cranial nerves: Yes Normal hearing present Speech: No Abnormal speech present Results Labs 09/20/23 12:17 09/20/23 12:17 Labs: Laboratory Results - last 24 hr 09/20/23 09/20/23 09/20/23 12:17 12:18 14:22 MCV 90.4 MCH 30.9 MCHC 34.2 RDW 13.2 Plt Count 406 H MPV 9.6 Immature Gran % (Auto) 0.8 H Neut % (Auto) 81.8 H Lymph % (Auto) 9.6 L [place] % (Auto) 6.1 Eos % (Auto) 1.3 Baso % (Auto) 0.4 Lymph # (Auto) 2.2 [place] # (Auto) 1.4 H Eos # (Auto) 0.3 Baso # (Auto) 0.1 Abs Immat Gran (auto) 0.19 H Absolute Neuts (auto) 18.3 H Absolute Nucleated RBC 0.000 Nucleated RBC % (auto) 0.0 Anion Gap 16 Estim Creat Clear Calc 57.2 Estimated GFR 29 POC Glucose 139 H Random Glucose 195 H Lactic Acid 1.3 Calcium 9.6 Phosphorus Magnesium 2.8 H Total Bilirubin 0.3 Direct Bilirubin 0.2 AST 15 ALT 11 Alkaline Phosphatase 122 H Total Protein 8.4 H Albumin 3.9 Lipase 45 Procalcitonin 0.50 09/20/23 17:27 MCV MCH MCHC RDW Plt Count MPV Immature Gran % (Auto) Neut % (Auto) Lymph % (Auto) [place] % (Auto) Eos % (Auto) Baso % (Auto) Lymph # (Auto) [place] # (Auto) Eos # (Auto) Baso # (Auto) Abs Immat Gran (auto) Absolute Neuts (auto) Absolute Nucleated RBC Nucleated RBC % (auto) Anion Gap Estim Creat Clear Calc Estimated GFR POC Glucose Random Glucose Lactic Acid 0.9 Calcium Phosphorus 3.8 Magnesium Total Bilirubin Direct Bilirubin AST ALT Alkaline Phosphatase Total Protein Albumin Lipase Procalcitonin Assessment and Plan (1) Back abscess: Status: Acute (2) Accidental overdose: Qualifiers: Encounter type: initial encounter Qualified Code(s): T50.901A - Poisoning by unspecified drugs, medicaments and biological substances, accidental (unintentional), initial encounter Status: Acute (3) SINA (acute kidney injury): Status: Acute (4) Cellulitis: Qualifiers: Site of cellulitis: trunk Site of cellulitis of trunk: back Qualified Code(s): L03.312 - Cellulitis of back [any part except buttock] Status: Acute (5) Morbid obesity: Status: Acute (6) Essential hypertension: Status: Acute Plan Septic shock: Unclear if shock is secondary to sepsis versus medication overdose He responded well to fluid boluses, received 3 L of IV fluid bolus Currently not requiring any vasopressor support, blood pressure stable His lactate levels are normal He is now status post I and D of the abscess, culture sent Wound cultures and blood cultures are sent, results are pending Patient is started on Zosyn for empiric coverage Acute kidney injury: Secondary to ATN from shock We will monitor creatinine We will closely monitor I's and O's Avoid nephrotoxic medications Hypertension: His home medications which is spironolactone has been withheld Diabetes mellitus: On home metformin and glipizide which we will withhold due to SINA We will start him on sliding scale insulin Prophylaxis: Heparin, SCD
[2023-09-20 21:11] LABS: Glucose, Whole Blood 281 mg/dL (60-115)
[2023-09-20 22:53] LABS: VBG Base Excess 3.6 mmol/L; VBG HCO3 27 mmol/L (22-26); VBG pCO2 38 mmHg; VBG pH 7.46 (7.32-7.43); VBG pO2 56 mmHg
[2023-09-20 22:53] LABS: MANUAL DIFF FLAG NO
[2023-09-20 22:56] LABS: Basophils Absolute Auto 0.1 X10*3/uL (0.0-0.2); Basophils Percent Auto 0.6 % (0-2); Eosinophils Absolute Auto 0.4 X10*3/uL (0.0-0.4); Hematocrit 34.3 % (42.0-52.0); Hemoglobin 11.5 g/dl (14.0-18.0); Imm Gran Abs Auto 0.18 X10*3/uL (0.00-0.03); Imm Gran Pct Auto 0.9 % (0.0-0.4); Lymphocytes Absolute Auto 1.6 X10*3/uL (1.2-4.9); Lymphocytes Percent Auto 7.9 % (20-40); Mean Corpuscular HGB Conc 33.5 g/dl (31.0-36.0); Mean Corpuscular Hemoglobin 30.5 pg (27.0-33.0); Mean Platelet Volume 9.4 fL (9.4-12.4); Monocytes Absolute Auto 1.4 X10*3/uL (0.1-1.2); Neutrophils Absolute Auto 16.4 x10*3/uL (2.0-8.3); Neutrophils Percent Auto 81.6 % (45-73); Platelet Count 316 X10*3/uL (160-400); Red Blood Count 3.77 X10*6/uL (4.60-5.80); Red Cell Distribution Width 13.2 % (11.0-16.0); White Blood Count 20.1 X10*3/uL (4.8-10.8)
[2023-09-20 23:06] LABS: Venous Blood Gas Refer to POC result
[2023-09-20 23:09] LABS: Alanine Aminotransferase 7 U/L (0-40); Albumin Level 3.9 g/dL (3.5-5.0); Alkaline Phosphatase 90 U/L (39-117); Anion Gap 13 (12-20); Aspartate Amino Transferase 10 U/L (5-37); Bilirubin Total 0.4 mg/dL (0.0-1.0); Blood Urea Nitrogen 37 mg/dL (9-16); Calcium 9.6 mg/dL (8.4-10.2); Carbon Dioxide 25 mmol/L (22-29); Chloride 102 mmol/L (96-108); Creatinine Clr Calc Pharmacy 69.3; Estimated Glomerular Filt Rate 36; Glucose Random 161 mg/dL (60-115); Magnesium 2.5 mg/dL (1.6-2.6); Phosphorus 4.4 mg/dL (2.7-4.5); Potassium 3.8 mmol/L (3.3-5.1); Sodium 136 mmol/L (135-145); Total Protein 7.5 g/dL (6.5-8.0)
[2023-09-21] VITALS (13 sets, daily range): BP systolic 92–122; BP diastolic 51–83; PULSE 78–99; RESP 13–21; TEMP 36.6–37; O2SAT 94–100; BMI 37.6
[2023-09-21] MEDS: Piperacillin Sodium/Tazobactam 3.375 GM in 0.9 % Sodium Chloride 50 ML IV ×3 (01:25→12:22)
[2023-09-21] MEDS: 0.9 % Sodium Chloride Flush 3 ML SYRINGE IVFLUSH (01:25)
[2023-09-21 05:59] LABS: MANUAL DIFF FLAG NO
[2023-09-21 06:00] LABS: Basophils Absolute Auto 0.1 X10*3/uL (0.0-0.2); Basophils Percent Auto 0.7 % (0-2); Eosinophils Absolute Auto 0.5 X10*3/uL (0.0-0.4); Hematocrit 35.7 % (42.0-52.0); Hemoglobin 11.9 g/dl (14.0-18.0); Imm Gran Abs Auto 0.13 X10*3/uL (0.00-0.03); Imm Gran Pct Auto 0.8 % (0.0-0.4); Lymphocytes Absolute Auto 1.3 X10*3/uL (1.2-4.9); Mean Corpuscular HGB Conc 33.3 g/dl (31.0-36.0); Mean Corpuscular Hemoglobin 30.1 pg (27.0-33.0); Mean Corpuscular Volume 90.2 fL (80.0-98.0); Mean Platelet Volume 9.5 fL (9.4-12.4); Monocytes Absolute Auto 1.2 X10*3/uL (0.1-1.2); Monocytes Percent Auto 7.1 % (2-11); Neutrophils Absolute Auto 13.2 x10*3/uL (2.0-8.3); Neutrophils Percent Auto 80.4 % (45-73); Platelet Count 329 X10*3/uL (160-400); Red Blood Count 3.96 X10*6/uL (4.60-5.80); Red Cell Distribution Width 13.2 % (11.0-16.0); White Blood Count 16.4 X10*3/uL (4.8-10.8)
[2023-09-21 06:22] LABS: Alanine Aminotransferase 9 U/L (0-40); Alkaline Phosphatase 93 U/L (39-117); Anion Gap 17 (12-20); Aspartate Amino Transferase 10 U/L (5-37); Bilirubin Total 0.5 mg/dL (0.0-1.0); Blood Urea Nitrogen 33 mg/dL (9-16); Carbon Dioxide 22 mmol/L (22-29); Chloride 102 mmol/L (96-108); Creatinine Clr Calc Pharmacy 80.8; Estimated Glomerular Filt Rate 43; Glucose Random 135 mg/dL (60-115); Magnesium 2.6 mg/dL (1.6-2.6); Phosphorus 3.7 mg/dL (2.7-4.5); Sodium 137 mmol/L (135-145); Total Protein 7.9 g/dL (6.5-8.0)
[2023-09-21 07:12] LABS: Glucose, Whole Blood 144 mg/dL (60-115)
[2023-09-21] MEDS: Heparin Sodium,Porcine 5,000 UNIT/ML VIAL 5000 UNIT SUBCUT ×2 (07:35→15:54)
--- NOTE | 2023-09-21 09:53 | HO.POSTANES ---
Post Anesthesia Evaluation Post Anesthesia Evaluation Date of Service: 09/21/23 Vital Signs: Vital Signs Temp Pulse Resp BP Pulse Ox O2 Del Method O2 Flow Rate 09/21/23 08:00 99 13 113/75 100 Nasal Cannula 2 09/21/23 07:00 97.9 F 83 14 103/62 97 Nasal Cannula 2 09/21/23 06:00 82 19 109/71 97 Nasal Cannula 2 09/21/23 05:19 98.0 F 09/21/23 05:00 83 14 94/51 L 98 Nasal Cannula 2 09/21/23 04:00 84 107/56 L 98 Nasal Cannula 2 09/21/23 03:00 88 19 103/75 98 Nasal Cannula 2 09/21/23 02:00 79 21 H 106/76 96 Nasal Cannula 2 09/21/23 01:00 83 19 98/67 96 Nasal Cannula 2 09/21/23 00:00 78 18 92/56 L 94 Nasal Cannula 2 09/20/23 23:00 75 20 95 Nasal Cannula 2 09/20/23 22:00 76 18 96/64 96 Nasal Cannula 2 Anesthesia: Monitored Mental Status: Awake Pain Control: Satisfactory Nausea/Vomiting: None Hydration: Adequate Anesthesia-Related Issues: No Anes. Related Issues
--- NOTE | 2023-09-21 10:00 | PM.CCPN ---
Subjective Subjective Date of Service: 09/21/23 Critical Care Time (minutes): 35 Comment: More better this morning, looks less ill unless toxic Blood pressure stable, did not require any vasopressor support since he has in the ICU Acute kidney injury improving Physical Exam Vital Signs: Vital Signs: Last Vital Signs Temp 97.9 F 09/21/23 07:00 Pulse 99 09/21/23 08:00 Resp 20 09/21/23 09:00 BP 122/68 09/21/23 09:00 Pulse Ox 100 09/21/23 08:00 O2 Del Method Nasal Cannula 09/21/23 08:00 O2 Flow Rate 2 09/21/23 08:00 Oxygen Flow Rate 3 09/20/23 16:58 BMI result Body Mass Index 37.6 General: Not in any acute distress, less ill appearing Nutritional Appearance: well nourished and overweight Eyes: appearance normal, both eyes and all related structures; Alignment and Position: alignment normal and position normal Neck: No lymphadenopathy, no thyromegaly Resp: bilateral air entry equal, no added sounds present Cardio: Regular rate, regular rhythm; Heart sounds: S1 normal heart sound present and S2 normal heart sound present GI: soft, nontender, no guarding, no hepatosplenomegaly : bladder normal to inspection, bladder normal to palpation, no renal angle tenderness Skin: no rashes or lesions noted and elasticity normal Neuro: oriented to person, oriented to place, oriented to time and moves all extremities Objective Data Labs 09/21/23 05:16 09/21/23 05:16 Labs: Laboratory Results - last 24 hr 09/20/23 09/20/23 09/20/23 12:17 12:18 14:22 WBC 22.4 H RBC 4.17 L Hgb 12.9 L Hct 37.7 L MCV 90.4 MCH 30.9 MCHC 34.2 RDW 13.2 Plt Count 406 H MPV 9.6 Immature Gran % (Auto) 0.8 H Neut % (Auto) 81.8 H Lymph % (Auto) 9.6 L [place] % (Auto) 6.1 Eos % (Auto) 1.3 Baso % (Auto) 0.4 Lymph # (Auto) 2.2 [place] # (Auto) 1.4 H Eos # (Auto) 0.3 Baso # (Auto) 0.1 Abs Immat Gran (auto) 0.19 H Absolute Neuts (auto) 18.3 H Absolute Nucleated RBC 0.000 Nucleated RBC % (auto) 0.0 VBG pH VBG pCO2 VBG pO2 VBG HCO3 VBG O2 Saturation VBG Base Excess Sodium 134 L Potassium 3.8 Chloride 98 Carbon Dioxide 24 Anion Gap 16 BUN 40 H Creatinine 2.38 H Estim Creat Clear Calc 57.2 Estimated GFR 29 POC Glucose 139 H Random Glucose 195 H Lactic Acid 1.3 Calcium 9.6 Phosphorus Magnesium 2.8 H Total Bilirubin 0.3 Direct Bilirubin 0.2 AST 15 ALT 11 Alkaline Phosphatase 122 H Total Protein 8.4 H Albumin 3.9 Lipase 45 Procalcitonin 0.50 09/20/23 09/20/23 09/20/23 17:27 21:03 22:45 WBC RBC Hgb Hct MCV MCH MCHC RDW Plt Count MPV Immature Gran % (Auto) Neut % (Auto) Lymph % (Auto) [place] % (Auto) Eos % (Auto) Baso % (Auto) Lymph # (Auto) [place] # (Auto) Eos # (Auto) Baso # (Auto) Abs Immat Gran (auto) Absolute Neuts (auto) Absolute Nucleated RBC Nucleated RBC % (auto) VBG pH 7.46 H VBG pCO2 38 VBG pO2 56 VBG HCO3 27 H VBG O2 Saturation 87.0 VBG Base Excess 3.6 Sodium Potassium Chloride Carbon Dioxide Anion Gap BUN Creatinine Estim Creat Clear Calc Estimated GFR POC Glucose 281 H Random Glucose Lactic Acid 0.9 Calcium Phosphorus 3.8 Magnesium Total Bilirubin Direct Bilirubin AST ALT Alkaline Phosphatase Total Protein Albumin Lipase Procalcitonin 09/20/23 09/21/23 09/21/23 22:47 05:16 07:04 WBC 20.1 H 16.4 H RBC 3.77 L 3.96 L Hgb 11.5 L 11.9 L Hct 34.3 L 35.7 L MCV 91.0 90.2 MCH 30.5 30.1 MCHC 33.5 33.3 RDW 13.2 13.2 Plt Count 316 329 MPV 9.4 9.5 Immature Gran % (Auto) 0.9 H 0.8 H Neut % (Auto) 81.6 H 80.4 H Lymph % (Auto) 7.9 L 8.0 L [place] % (Auto) 7.0 7.1 Eos % (Auto) 2.0 3.0 Baso % (Auto) 0.6 0.7 Lymph # (Auto) 1.6 1.3 [place] # (Auto) 1.4 H 1.2 Eos # (Auto) 0.4 0.5 H Baso # (Auto) 0.1 0.1 Abs Immat Gran (auto) 0.18 H 0.13 H Absolute Neuts (auto) 16.4 H 13.2 H Absolute Nucleated RBC 0.000 0.000 Nucleated RBC % (auto) 0.0 0.0 VBG pH VBG pCO2 VBG pO2 VBG HCO3 VBG O2 Saturation VBG Base Excess Sodium 136 137 Potassium 3.8 4.0 Chloride 102 102 Carbon Dioxide 25 22 Anion Gap 13 17 BUN 37 H 33 H Creatinine 1.97 H 1.69 H Estim Creat Clear Calc 69.3 80.8 Estimated GFR 36 43 POC Glucose 144 H Random Glucose 161 H 135 H Lactic Acid Calcium 9.6 10.0 Phosphorus 4.4 3.7 Magnesium 2.5 2.6 Total Bilirubin 0.4 0.5 Direct Bilirubin AST 10 10 ALT 7 9 Alkaline Phosphatase 90 93 Total Protein 7.5 7.9 Albumin 3.9 4.0 Lipase Procalcitonin Microbiology Microbiology Results: Microbiology 09/20/23 13:16 Back Right Gram Stain - Final Progress Note: A&P Assessment and plan (1) Abscess of flank: Status: Acute (2) SINA (acute kidney injury): Status: Acute (3) Cellulitis: Status: Acute (4) Incarcerated umbilical hernia: Status: Acute (5) Morbid obesity: Status: Acute (6) Hyperlipidemia, unspecified: Status: Acute (7) Type 2 diabetes mellitus with unspecified complications: Status: Acute Plan Septic shock: Improved and resolved He responded well to fluid boluses, received 3 L of IV fluid bolus not requiring any vasopressor support, blood pressure stable His lactate levels are normal He is now status post I and D of the abscess, culture pending Continue Zosyn for empiric coverage Acute kidney injury: Secondary to ATN from shock, is improving Creatinine trending down, 1.7 this morning We will closely monitor I's and O's Avoid nephrotoxic medications Hypertension: His home medications which is spironolactone has been withheld in view of SINA and shock. Currently patient is normotensive Diabetes mellitus: On home metformin and glipizide which we will withhold due to SINA on sliding scale insulin Prophylaxis: Heparin, SCD Quality Stroke Does the patient have a stroke diagnosis?: No VTE Prior VTE?: No VTE Risk Level:: Medical - moderate - high VTE Device Contraindication: N/A - Device Ordered VTE Drug Contraindication: N/A - Med Ordered
[2023-09-21 11:40] LABS: Glucose, Whole Blood 217 mg/dL (60-115)
[2023-09-21] MEDS: Insulin Lispro 100 UNIT/ML 3 ML VIAL SUBCUT (11:52)
[2023-09-21] MEDS: Lactated Ringers 1,000 ML 100 ML IVCONT (12:23)
--- NOTE | 2023-09-21 12:52 | MHC.CM.PN ---
EMR REVIEWED, CM MET W/PT WHO REPORT HE LIVES W/ AND KIDS, IS FULLY INDEP, DENIES USE OF DME/SERVICES AND GOAL FOR DC IS HOME NO SERVICES. PT VERIFIES PCP IS NATACHA OVERTON AND PT HAS BEEN EDUCATED ON AND DECLINED TO COMPLETE A HCP THIS ADMISSION.
--- NOTE | 2023-09-21 14:52 | PM.PNGS ---
Subjective Subjective Date of Service: 09/21/23 Interval history: Patient transferred from ICU to the floor earlier today. Have packing change done in ICU. He feels much better. Modest incisional discomfort Physical Exam Vital Signs: Vital Signs: Last Vital Signs Temp 97.9 F 09/21/23 07:00 Pulse 99 09/21/23 08:00 Resp 18 09/21/23 10:00 BP 110/83 09/21/23 10:00 Pulse Ox 100 09/21/23 08:00 O2 Del Method Nasal Cannula 09/21/23 08:00 O2 Flow Rate 2 09/21/23 08:00 Oxygen Flow Rate 3 09/20/23 16:58 BMI result Body Mass Index 37.6 Back/Spine/Pelvis: Other: Dressing clean dry and intact Objective Data Active Medications Acetaminophen (Acetaminophen 325 Mg Tablet) 650 mg PO Q6H PRN PRN Reason: Pain, Mild (Pain Scale 1-3) Glucose (Glucose Gel 15 Gm Gel..Gram.) 15 gm PO Q15M PRN; Protocol PRN Reason: per Hypoglycemia Standing Ord. Heparin Sodium (Porcine) (Heparin Sodium,Porcine 5,000 Unit/Ml Vial) 5,000 unit SUBCUT Q8H BRENDA Last Admin: 09/21/23 07:35 Dose: 5,000 unit Documented By: JAMISONFAArslan Hydromorphone HCl (Hydromorphone Hcl 1 Mg/Ml Syringe) 0.5 mg IVPUSH Q6H PRN; Protocol PRN Reason: Pain, Moderate(Pain Scale 4-6) Last Admin: 09/20/23 17:04 Dose: 0.5 mg Documented By: LEANN Comments: no stronger med avail. Pt ok with this med Piperacillin Sod/Tazobactam (Sod 3.375 gm/ Sodium Chloride) 50 mls @ 100 mls/hr IV Q6H [facility] Last Infusion: 09/21/23 13:06 Dose: Infused Documented By: ZULEYMA Dextrose (D10) 250 mls @ 750 mls/hr IV Q15M PRN; Protocol PRN Reason: per Hypoglycemia Standing Ord. Lactated Ringer's (Lr) 1,000 mls @ 100 mls/hr IVCONT .Q10H BRENDA Stop: 09/21/23 22:14 Last Admin: 09/21/23 12:23 Dose: 100 mls/hr Documented By: ZULEYMA Insulin Human Lispro (Insulin Lispro 100 Unit/Ml 3 Ml Vial) [facility]; Protocol Stop: 09/21/23 20:41 Last Admin: 09/21/23 11:52 Dose: 4 unit Documented By: ZULEYMA Ondansetron HCl (Ondansetron Hcl 4 Mg/2 Ml Vial) 4 mg IVPUSH Q8H PRN PRN Reason: Nausea Sodium Chloride (0.9 % Sodium Chloride Flush 3 Ml Syringe) 3 ml IVFLUSH [facility] Last Admin: 09/21/23 07:21 Dose: Not Given Documented By: RAYMUNDO Non-Admin Reason: Previously Administered Labs 09/21/23 05:16 09/21/23 05:16 Labs: Laboratory Results - last 24 hr 09/20/23 09/20/23 09/20/23 17:27 21:03 22:45 MCV MCH MCHC RDW Plt Count MPV Immature Gran % (Auto) Neut % (Auto) Lymph % (Auto) [place] % (Auto) Eos % (Auto) Baso % (Auto) Lymph # (Auto) [place] # (Auto) Eos # (Auto) Baso # (Auto) Abs Immat Gran (auto) Absolute Neuts (auto) Absolute Nucleated RBC Nucleated RBC % (auto) VBG pH 7.46 H VBG pCO2 38 VBG pO2 56 VBG HCO3 27 H VBG O2 Saturation 87.0 VBG Base Excess 3.6 Anion Gap Estim Creat Clear Calc Estimated GFR POC Glucose 281 H Random Glucose Lactic Acid 0.9 Calcium Phosphorus 3.8 Magnesium Total Bilirubin AST ALT Alkaline Phosphatase Total Protein Albumin 09/20/23 09/21/23 09/21/23 22:47 05:16 07:04 MCV 91.0 90.2 MCH 30.5 30.1 MCHC 33.5 33.3 RDW 13.2 13.2 Plt Count 316 329 MPV 9.4 9.5 Immature Gran % (Auto) 0.9 H 0.8 H Neut % (Auto) 81.6 H 80.4 H Lymph % (Auto) 7.9 L 8.0 L [place] % (Auto) 7.0 7.1 Eos % (Auto) 2.0 3.0 Baso % (Auto) 0.6 0.7 Lymph # (Auto) 1.6 1.3 [place] # (Auto) 1.4 H 1.2 Eos # (Auto) 0.4 0.5 H Baso # (Auto) 0.1 0.1 Abs Immat Gran (auto) 0.18 H 0.13 H Absolute Neuts (auto) 16.4 H 13.2 H Absolute Nucleated RBC 0.000 0.000 Nucleated RBC % (auto) 0.0 0.0 VBG pH VBG pCO2 VBG pO2 VBG HCO3 VBG O2 Saturation VBG Base Excess Anion Gap 13 17 Estim Creat Clear Calc 69.3 80.8 Estimated GFR 36 43 POC Glucose 144 H Random Glucose 161 H 135 H Lactic Acid Calcium 9.6 10.0 Phosphorus 4.4 3.7 Magnesium 2.5 2.6 Total Bilirubin 0.4 0.5 AST 10 10 ALT 7 9 Alkaline Phosphatase 90 93 Total Protein 7.5 7.9 Albumin 3.9 4.0 09/21/23 11:24 MCV MCH MCHC RDW Plt Count MPV Immature Gran % (Auto) Neut % (Auto) Lymph % (Auto) [place] % (Auto) Eos % (Auto) Baso % (Auto) Lymph # (Auto) [place] # (Auto) Eos # (Auto) Baso # (Auto) Abs Immat Gran (auto) Absolute Neuts (auto) Absolute Nucleated RBC Nucleated RBC % (auto) VBG pH VBG pCO2 VBG pO2 VBG HCO3 VBG O2 Saturation VBG Base Excess Anion Gap Estim Creat Clear Calc Estimated GFR POC Glucose 217 H Random Glucose Lactic Acid Calcium Phosphorus Magnesium Total Bilirubin AST ALT Alkaline Phosphatase Total Protein Albumin Microbiology Microbiology Results: Microbiology 09/20/23 12:19 Blood Culture - Preliminary Blood - Venous No growth after 24 hours. 09/20/23 12:17 Blood Culture - Preliminary Blood - Venous No growth after 24 hours. 09/20/23 13:16 Gram Stain - Final Back Right Routine Culture - Preliminary Staphylococcus aureus Procedures Date of Service Date of Service: 09/21/23 Progress Note: A&P Assessment and plan (1) Postop check: Status: Acute Plan Status post I&D of massive back abscess. Continue current plan; IV antibiotics, local wound care. Time Spent With Patient Time: Total time managing care of this patient today ____ minutes. Quality Stroke Does the patient have a stroke diagnosis?: No VTE Prior VTE?: No VTE Risk Level:: Medical - moderate - high VTE Device Contraindication: N/A - Device Ordered VTE Drug Contraindication: N/A - Med Ordered
[2023-09-21 16:21] LABS: Glucose, Whole Blood 108 mg/dL (60-115)
--- NOTE | 2023-09-21 17:30 | PM.EVENT ---
Event Note Date of Service: 09/21/23 Event Note: The patient had an urgent family situation and had to leave the hospital signing AMA. To cover him with Clindamycin for 10 more days and give supplies for wound care (his sister is a nurse and will help) He was advised to stay until cultures are finalized but he refused understanding that leaving this early put him at risk of worsening condition and possible . He said he will c ome back if he gets any worse. Time Spent With Patient Time: Total time managing care of this patient today ____ minutes.
== END 2023-09-21 18:04 | disposition left against medical advice (07) | DRG 710 ==
LOC: HO.ED 13:30 → HO.EDOVER 14:47 → HO.ICU 16:21 → HO.S3 09-21 10:27
PROVIDERS: Physician Assistant Medical; Surgery; Admitting Provider Internal Medicine Critical Care Medicine; Emergency Provider Emergency Medicine; PCP Internal Medicine Geriatric Medicine; Visit Provider Hospitalist
PROC: 0J970ZZ Drainage of Back Subcutaneous Tissue and Fascia, Open Approach (ICD-10-PCS; principal; 2023-09-20 14:30)
DX: A41.9 Sepsis, unspecified organism (principal); R65.21 Severe sepsis with septic shock; N17.0 Acute kidney failure with tubular necrosis; L02.211 Cutaneous abscess of abdominal wall; L03.312 Cellulitis of back [any part except buttock and flank]; E11.9 Type 2 diabetes mellitus without complications; E78.5 Hyperlipidemia, unspecified; E66.01 Morbid (severe) obesity due to excess calories; Z68.37 Body mass index [BMI] 37.0-37.9, adult; F17.210 Nicotine dependence, cigarettes, uncomplicated; T50.0X1A Poisoning by mineralocorticoids and their antagonists, accidental (unintentional), initial encounter; Z79.82 Long term (current) use of aspirin; Z79.84 Long term (current) use of oral hypoglycemic drugs; Z79.85 Long-term (current) use of injectable non-insulin antidiabetic drugs; Z79.899 Other long term (current) drug therapy
CPT/HCPCS: 36415; 80048; 80053; 80076; 82803; 82947; 83605; 83690; 83735; 84100; 84145; 85025; 87040; 87070; 87077; 87186; 87205; 93005; 99285; J0131; J0613; J1170; J1596; J1610; J1644; J2250; J2405; J2543; J2704; J2795; J3010; J7120; P9047

== ENCOUNTER → 2023-09-20 12:47 | Outpatient (BNV) | payer MEDICAID, SELFPAY | PROVIDERS: Admitting Provider Internal Medicine Critical Care Medicine; Emergency Provider Emergency Medicine; Visit Provider Internal Medicine Cardiovascular Disease | DX: I45.10 Unspecified right bundle-branch block (principal) | CPT/HCPCS: 93010 ==

== ENCOUNTER → 2023-09-20 14:40 | Outpatient (BNV) | payer MEDICAID, SELFPAY | PROVIDERS: Admitting Provider Internal Medicine Critical Care Medicine; Emergency Provider Emergency Medicine; Visit Provider Internal Medicine Critical Care Medicine | DX: N17.9 Acute kidney failure, unspecified (principal); L02.211 Cutaneous abscess of abdominal wall; L03.312 Cellulitis of back [any part except buttock and flank]; K42.0 Umbilical hernia with obstruction, without gangrene; E66.01 Morbid (severe) obesity due to excess calories; E78.5 Hyperlipidemia, unspecified; E11.8 Type 2 diabetes mellitus with unspecified complications | CPT/HCPCS: 99223; 99291 ==

== ENCOUNTER 2023-10-11 08:08 | Outpatient (RCR) | payer MEDICAID, SELFPAY | END 2023-11-15 10:27 | disposition home or self-care (01) | LOC: HO.WCC 08:08 | PROVIDERS: PCP Internal Medicine Geriatric Medicine; Visit Provider Physician Assistant | DX: S21.201D Unspecified open wound of right back wall of thorax without penetration into thoracic cavity, subsequent encounter (principal); T81.31XD Disruption of external operation (surgical) wound, not elsewhere classified, subsequent encounter; E11.9 Type 2 diabetes mellitus without complications; F17.210 Nicotine dependence, cigarettes, uncomplicated; I10 Essential (primary) hypertension; X58.XXXD Exposure to other specified factors, subsequent encounter | CPT/HCPCS: 11042; 99212 ==

== ENCOUNTER 2024-07-27 08:02 | Outpatient (REF) | payer MEDICAID, SELFPAY ==
--- OUTSIDE RECORDS SUMMARY | 2024-07-27 08:07 | XMS_ITS | Encounter Summary ---
Author Organization [employer] Address [address] [facility] [address] [place] [address] Care Team Providers Care Transportation Planning Engineer Name Role Phone Name, Ming MARISCAL Primary Care Provider [phone] Precious Carpenter PharmD Unavailable [phone] Encounter Details Date Type Department Care Team (Late st Contact Info) Description 03/21/2022 Orders Only [facility] MED & PEDS [address] [place] [address] Sia Hernandez LPN Social History Tobacco Use Types Packs/Day Years Used Date Smoking Tobacco: Never Assessed Sex and Gender Information Value Date Recorded Sex Assigned at Male 01/22/2022 10:27 AM EDT Legal Sex Male 10:27 AM EDT Gender Identity Male 01/22/2022 10:27 AM EDT Sexual Orientation Straight 01/22/2022 10 :27 AM EDT documented as of this encounter Plan of Treatment Upcoming Encounters Date Type Department Care Team (Late st Contact Info) Description 07/31/2024 9:30 AM EDT Medication Management [facility] MEDICINE [address] [place] [phone] Precious Carpenter, PharmD [address] [place] [address] 09/15/2024 11:30 AM EDT Office Visit [facility] [address] [place] [phone] Name, MD Ming [address] [place] [address] documented as of this encounter Visit Diagnoses Not on filedocumented in this encounter Care Teams Transportation Planning Engineer Relationship Specialty Start Date End Date Name, MD Ming [address] [place] [address] PCP - General Family Medicine 08/23/17 Precious Carpenter PharmD [address] [place] [address] Pharmacist Internal Medicine 06/20/21 documented as of this encounter
--- OUTSIDE RECORDS SUMMARY | 2024-07-27 08:07 | XMS_ITS | Encounter Summary ---
Author Organization [employer] Address [address] [facility] [address] [place] [address] Care Team Providers Care Annealing Furnace Operator Name Role Phone Name, Ming MARISCAL Primary Care Provider [phone] Precious Carpenter PharmD Unavailable Encounter Details Date Type Department Care Team (Late st Contact Info) Description 04/18/2022 Orders Only [facility] MED & PEDS [address] [place] [address] Sia Hernandez LPN Social History Tobacco Use [...] Description 07/31/2024 9:30 AM EDT Medication Management [facility] MED[facility] [address] [place] [phone] Precious Carpenter, PharmD [address] [place] [address] 09/15/2024 11:30 AM EDT Office Visit [facility] [address] [place] [phone] Name, MD Ming [address] [place] [address] documented as of this encounter Visit Diagnoses Not on filedocumented in this encounter Care Teams Annealing Furnace Operator Relationship Specialty Start Date End Date Name, MD Ming [address] [place] [address] PCP - General Family Medicine 08/23/17 Precious Carpenter PharmD [address] [place] [address] Pharmacist Internal Medicine 06/20/21 documented as of this encounter
--- OUTSIDE RECORDS SUMMARY | 2024-07-27 08:07 | XMS_ITS | Encounter Summary ---
Author Organization [employer] Address [address] [facility] [address] [place] [address] Care Team Providers Care Rn Hemo Dialysis Name Role Phone Name, Ming MARISCAL Primary Care Provider [phone] Precious Carpenter PharmD Unavailable [phone] Reason for Visit * Reason Comments Med Refill Encounter Details Date Type Department Care Team ([facility] st Contact Info) Description 01/30/2023 Refill [facility] MED[facility]INE [address] [place] [address] Name, MD Ming [address] [place] [address] Social History Tobacco Use Types Packs/Day Years Used Date Smoking Tobacco: Every Day Cigarettes 0.5 34 Smokeless Tobacco: Never Alcohol Use Standard Drinks/Week Comments Never 0 (1 standard drink = 0.6 oz pur e alcohol) Housing Stability Answer Date Recorded What is your housing situation today? I have geovanni fried 01/15/[address] you li ve. Do you have problems with any of the following? None of the above 01/15/2023 Food Insecurity Answer Date Recorded Within the past 12 months, y ou worried that your food would run out before you got money to buy more: Never True 01/15/2023 Within the past 12 months,th e food you bought just didn't last and you didn't have enough money to get more: Never True Transportation Answer Date Recorded In the past 12 months, has l ack of transportation kept you from medical appts, meetings, work or from getting things needed for daily living? No 01/15/2023 Utilities Answer Date Recorded In the past 12 months, has t he electric, gas, oil or water company threatened to shut off services in your home? No 01/15/2023 Depression Answer Date Recorded Patient Health Questionnaire-2 Score 6 10/11/2022 Sex and Gender Information Value Date Recorded Sex Assigned at Male 01/22/2022 10:27 AM EDT Legal Sex Male 10:27 AM EDT Gender Identity Male 01/22/2022 10:27 AM EDT Sexual Orientation Straight 01/22/2022 10 :27 AM EDT documented as of this encounter Plan of Treatment Upcoming Encounters Date Type Department Care Team (Late st Contact Info) Description 07/31/2024 9:30 AM EDT Medication Management [facility] MEDICINE [address] [place] [phone] Puia, Precious, PharmD [address] [place] [phone] 09/15/2024 11:30 AM EDT Office Visit [facility] [address] [place] [phone] NameMing MD [address] [place] [phone] documented as of this encounter Goals Goal Patient Goal Type Associated Problems Recent Progress Patient-Stated? Author Blood Pressure < 140/90 Blood Pressure 160/94(2024 10:47 AM EDT) No Puia, Precious, PharmD Record your blood pressure once per day Blood Pressure No Puia, Precious, PharmD Smoking cessation General No Puia, Precious, PharmD Hemoglobin A1c < 7 Result Component 8.3( 10:33 AM EDT) No Puia, Precious, PharmD documented as of this encounter Visit Diagnoses Not on filedocumented in this encounter Care Teams Rn Hemo Dialysis Relationship Specialty Start Date End Date Ming Espinal MD [address] [place] [phone] PCP - General Family Medicine 08/23/17 Puia, Precious, PharmD [address] [place] [address] Pharmacist Internal Medicine 06/20/21 documented as of this encounter
--- OUTSIDE RECORDS SUMMARY | 2024-07-27 08:08 | XMS_ITS | Clinical Summary ---
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 albuterol (2.5 MG/3ML) 0.083% nebulizer solutionIndicatio ns:Asthma, unspecified asthma severity, unspecified whether complicated, unspecified whether persistent INHALE 1 AMPULE USING A NEBULIZER FOUR TIMES DAILY 270 mL 5 04/18/19 23 Active Blood Pressure Monitoring (Omron 3 Series BP Monitor) device USE DIRECTED TO CHECK BLOOD PRESSURE 11/29/19 22 Active TRUEplus Lancets 33G misc TEST BLOOD SUGAR ONCE DAILY 100 each 5 01/02/20 23 Active traZODone (Desyrel) 100 MG tablet Take 100 mg by mouth if needed at bedtime. 12/06/19 23 Active Blood Glucose Monitoring Suppl (FreeStyle Anderson Lite) w/Device kitIndications:Ty pe 2 diabetes mellitus with hyperglycemia, without long-term current use of insulin ([facility]) Use to test blood sugar once daily as directed 1 kit 03/21/20 23 Active albuterol (Ventolin HFA) 108 (90 Base) MCG/ACT inhalerIndication s:Asthma, unspecified asthma severity, unspecified whether complicated, unspecified whether persistent INHALE 2 PUFFS BY MOUTH EVERY 4 TO 6 HOURS NEEDED 18 g 3 03/27/19 24 Active sildenafil (Viagra) 50 MG tablet Take 1 tablet (50 mg) by mouth if needed each day for erectile dysfunction. 10 tablet 04/23/19 24 Active amLODIPine (Norvasc) 10 MG tabletIndications :Essential hypertension Take 1 tablet (10 mg) by mouth Once daily. 90 tablet 3 07/31/19 24 Active empagliflozin (Jardiance) 25 MGIndications:Typ e 2 diabetes mellitus with hyperglycemia, without long-term current use of insulin ([facility]) Take 1 tablet (25 mg) by mouth Once per day. 30 tablet 11 07/31/19 24 Active lisinopril-hydroC HLOROthiazide 20-25 MG tabletIndications :Essential hypertension Take 2 tablets by mouth Once per day. 180 tablet 07/31/19 24 Active spironolactone (Aldactone) 25 MG tabletIndications :Essential hypertension Take 1 tablet (25 mg) by mouth Once per day. 90 tablet 07/31/19 24 025 Active benzoyl peroxide (PanOxyl Foaming Wash) 10 % external washIndications:F olliculitis Apply topically Once per day. 227 g 10/25/19 24 025 Active triamcinolone (Kenalog) 0.1 % creamIndications: Dermatitis, unspecified Apply topically 2 times daily. Mix with cerave 80 g 10/25/19 24 Active Incruse Ellipta 62.5 MCG/ACT aerosol powder INHALE 1 PUFF EVERY DAY AT THE SAME TIME 30 each 10/28/19 24 Active gabapentin (Neurontin) 300 MG capsuleIndication s:Diabetic polyneuropathy associated with type 2 diabetes mellitus ([facility]) TAKE 1 CAPSULE BY MOUTH THREE TIMES DAILY IN THE MORNING, EVENING, AND BEDTIME 90 capsule 3 11/28/19 24 Active baclofen (Lioresal) 10 MG tablet Take 1 tablet (10 mg) by mouth 3 times daily for 7 days. 21 tablet 01/01/20 24 Active varenicline (Chantix) 1 MG tabletIndications :Tobacco dependence Take 1 tablet (1 mg) by mouth 2 times daily. Take with full glass of water. 60 tablet 2 02/11/20 24 Active FREESTYLE LITE test strip TEST BLOOD SUGAR ONCE DAILY 50 strip 11 03/06/20 24 Active Aspirin Low Dose 81 MG EC tabletIndications :Asthma, unspecified asthma severity, unspecified whether complicated, unspecified whether persistent TAKE 1 TABLET BY MOUTH EVERY MORNING 90 tablet 04/15/19 25 Active Tirzepatide (Mounjaro) 10 MG/0.5ML solution auto-injector Inject 10 mg under the skin 1 (one) time per week. 2 mL 06/11/19 25 026 Active sertraline (Zoloft) 50 MG tablet TAKE 1 TABLET BY MOUTH EVERY MORNING 30 tablet 06/18/19 25 Active nicotine polacrilex (Nicorette) 2 MG gum Chew 1 piece of gum, as directed, every 1-2 hours as needed for cravings. No more than 24 pieces in 24 hours. 110 each 07/09/19 25 Active glipiZIDE XL (Glucotrol XL) 5 MG 24 hr tabletIndications :Type 2 diabetes mellitus with hyperglycemia, without long-term current use of insulin (CMS/HCC) TAKE 1 TABLET BY MOUTH EVERY MORNING 90 tablet 07/15/19 25 Active metFORMIN (Glucophage) 500 MG tabletIndications :Type 2 diabetes mellitus with hyperglycemia, without long-term current use of insulin (CMS/HCC) TAKE 2 TABLETS BY MOUTH TWICE DAILY IN THE MORNING AND EVENING WITH MEALS 360 tablet 07/15/19 25 Active metoprolol tartrate (Lopressor) 100 MG tabletIndications :Essential hypertension TAKE 1 TABLET BY MOUTH TWICE DAILY IN THE MORNING AND IN THE EVENING 180 tablet 07/15/19 25 Active atorvastatin (Lipitor) 40 MG tabletIndications :Type 2 diabetes mellitus with hyperglycemia, without long-term current use of insulin (CMS/HCC) TAKE 1 TABLET BY MOUTH EVERY MORNING 90 tablet 07/15/19 25 Active atorvastatin (Lipitor) 40 MG tabletIndications :Type 2 diabetes mellitus with hyperglycemia, without long-term current use of insulin (CMS/HCC) Take 1 tablet (40 mg) by mouth in the morning. 90 tablet 3 07/31/19 24 025 Discontinued glipiZIDE XL (Glucotrol XL) 5 MG 24 hr tabletIndications :Type 2 diabetes mellitus with hyperglycemia, without long-term current use of insulin (CMS/HCC) Take 1 tablet (5 mg) by mouth in the morning. 90 tablet 3 07/31/19 24 025 Discontinued metFORMIN (Glucophage) 500 MG tabletIndications :Type 2 diabetes mellitus with hyperglycemia, without long-term current use of insulin ([facility]) TAKE 2 TABLETS BY MOUTH TWICE DAILY IN THE MORNING AND EVENING WITH MEALS 360 tablet 3 07/31/19 24 025 Discontinued metoprolol tartrate (Lopressor) 100 MG tabletIndications :Essential hypertension Take 1 tablet (100 mg) by mouth 2 times daily. 180 tablet 3 07/31/19 24 025 Discontinued Active Problems Problem Noted Date Diagnosed Date Cellulitis 09/20/2023 COVID-19 09/20/2023 Hyperlipidemia, unspecified 09/20/2023 Smoker 09/20/2023 Somnolence, daytime 09/20/2023 Ascending aortic aneurysm 09/20/2023 Asthma with COPD 09/20/2023 COPD (chronic obstructive pulmonary disease) Obesity (BMI 30-39.9) 09/20/2023 ROSALEE (obstructive sleep apnea) 09/20/2023 Type 2 diabetes mellitus with unspecified compli cations 09/20/2023 Incarcerated umbilical hernia 09/20/2023 Abscess of back 09/19/2023 Assessment & Plan (09/19/2023 1:28 PM EDT): There still significant induration, no active drainage. Advised to keep area clean and dry, avoid scrubbing the area delineated with sharpie to fu on its size. Advised to avoid squeezing lesion. Continue Bactrim to complete 7d and fu with PCP. Sepsis without acute organ dysfunction Assessment & Plan (09/19/2023 1:26 PM EDT): Sp IV abs x 1d only, seems to be doing well on PO bactrim (left the hospital AMA). Advised to continue bactrim to complete 7d, get labs today to monitor inflammatory markers and fu with PCP on 09/22 Advised to go to ED if he develops fever, chills, nausea, abd pain, SOB, worsening back pain or dark urine. Class 2 obesity 07/18/2023 Aneurysm of ascending aorta without rupture 06/24 Assessment & Plan (09/19/2023 1:29 PM EDT): Patient aware of dx, he's fu by cardiology. Moderate episode of recurrent major depressive d isorder 10/11/2022 Assessment & Plan (10/11/2022 12:29 PM EDT): Assessment: Dick was engaged with active reflective listening and open-ended questions. Assessed symptoms, risks, and social supports with direct questions. Discussed current symptoms intensity and frequency. Emotions were normalized and validated. He was not able to identified any coping mechanisms nut was able to identify his family as protective factors. Provided psychoeducation around Coping skills to manage depressive and anxious sxs. Discussed OP therapy and Medication Management, he agreed to Ind. Therapy referral, declined Med. Management at this time. I informed PCP about his response. Provided education around integrated medicine and the options of follow up BE's as needed. Provided contact information should questions or concerns arise. Plan: David will engage in effective coping mechanisms dicussed at least 2 times per day, for 6 months. He will be referred to Ind. Therapy at this time. Patient with lack of motivation, hopelessness, insomnia, little energy, poor appetite, trouble with concentration, forgetfulness, feeling like a failure, passive thoughts w/o plan or intention, feeling anxious, persistent worry, fearfulness. He denies SI, HI, AVH or self-harm at this time. He lives with and 2 children of 19 y/o and 9 years old. Has not been working for 3-4 years due to medical reasons. Applied to [employer] and is in the process of appeal it. Hx of trauma in childhood that involved father been killed, he was 6 years old. Mother survived cancer, but he is concern that it might come back. Patient will benefit from Ind. Therapy. At this time Dick Dixon meets criteria for Visit Diagnoses: Problem List Items Addressed This Visit Other Moderate episode of recurrent major depressive disorder (CMS/HCC) Patient ready to address current needs Yes Strengths include support from family and ready to seek help PLAN: 1. Follow up with [facility]: Not recommended for follow-up 2. Patient goal is engage [facility] services 3. Behavioral Recommendations a. Ind. Therapy b. Use of Coping Skills c. 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 Knee pain 11/01/2017 Morbid obesity 08/23/2017 Essential hypertension 08/23/2017 Acute non-ST segment elevation myocardial infarc tion 08/23/2017 Encounters Date Type Department Care Team Description 07/13/2024 Refill [facility] MED[facility] [address] [place] [address] Ming Espinal MD Type 2 diabetes mellitus with hyperglycemia, without long-term current use of insulin ([facility]/HCC); Essential hypertension 07/08/2024 Travel 07/04/2024 Travel 06/15/2024 Refill [facility] [address] [place] [address] Ming Espinal MD 06/10/2024 10:30 AM EDT Office Visit [facility] [address] [place] [address] Ming Espinal MD Type 2 diabetes mellitus with hyperglycemia, without long-term current use of insulin ([facility]/HCC) (Primary Dx); Essential hypertension 06/10/2024 Travel 06/09/2024 Telephone [facility] [address] [place] [address] ZaidiAriane ortiz MA chart prep 06/08/2024 1:00 PM EDT Office Visit [facility] OPTOMETRY [address] [place] [address] Sonya Ferreira, JULIA Type 2 diabetes mellitus without ophthalmic manifestations ([facility]/HCC) (Primary Dx); Presbyopia; Open angle with borderline findings, low risk, bilateral 06/08/2024 Travel 06/05/2024 Population Health Risk Score [facility] ([facility] Department [address] [address] Provider, Population Health Generic 05/22/2024 Telephone [facility] [address] [place] [address] Ming Espinal MD No Show 05/19/2024 Telephone [facility] [address] [place] [address] Name, MD Ming chartprep 05/12/2024 Refill [facility] [address] [place] [address] Precious Carpenter, PharmD Tobacco dependence from Last 3 Months Immunizations Name Administration Dates Next Due HepB-CpG 12/14/2022,07/02/2022 Influenza Injectable Quadriv alant Preservative Free IIV4 MDCK 12/14/2022 Influenza injectable quadriv alent IIV4 with preservative 01/10/2018 Influenza injectable quadrivalent preservative f ree 01/18/2019 Influenza, seasonal, injectable, preservative fr ee 06/10/2024 Eamon SARS-CoV-2 Vaccination 07/04/2020 Pfizer Covid-19 Vaccine 12+ 07/14/2021 Pfizer Covid-19 Vaccine 12+ Bivalent 02/09/2022 Pneumococcal Conjugate PCV 20 07/02/2022 Pneumococcal Polysaccharide PPSV23 01/18/2019 TD (adult), 2 Lf tetanus tox oid, preservative free, adsorbed 02/06/2017 Tdap 01/10/2018 Family History Medical History Relation Name Comments Diabetes Brother Diabetes Mother Diabetes Sister Relation Name Status Comments Brother Mother Sister Social History Tobacco Use Types Packs/Day Years Used Date Smoking Tobacco: Some Days Cigarettes 0.3 34 Smokeless Tobacco: Never Tobacco Cessation:Ready to Q uit: Not Asked; Counseling Given: Not Answered Alcohol Use Standard Drinks/Week Comments Never 0 (1 standard drink = 0.6 oz pur e alcohol) Alcohol Answer Date Recorded Frequency of Alcohol Consumption Not on file 09/23/2023 Average Number of Drinks Not on file 024 Frequency of Binge Drinking Not on file 0703/2023 Score 0 09/23/2023 Depression Answer Date Recorded Patient Health Questionnaire-9 Score 5 06/10/2024 Patient Health Questionnaire-9 Score 5 06/10/2024 Last PHQ-9: Questionnaire Data Not on file 0 06/10/2024 Housing Stability Answer Date Recorded What is your housing situation today? I have geovanni sing 06/10/[address] you li ve. Do you have problems with any of the following? Pests such as bugs, ants, or mice 06/10/2024 Food Insecurity Answer Date Recorded Within the [...] getting things needed for daily living? No 06/10/2024 Utilities Answer Date Recorded In the past 12 months, has t he electric, gas, oil or water company threatened to shut off services in your home? No 06/10/2024 Depression Answer Date Recorded Patient Health Questionnaire-2 Score 2 06/10/2024 Internet Access Answer Date Recorded Internet Access Q1 Yes 06/10/2024 Internet Access Q2 Not on file 06/10/2024 Sex and Gender Information Value Date Recorded Sex Assigned at Male 01/22/2022 10:27 AM EDT Legal Sex Male 10:27 AM EDT Gender Identity Male 01/22/2022 10:27 AM EDT Sexual Orientation Straight 01/22/2022 10 :27 AM EDT Last Filed Vital Signs Vital Sign Reading Time Taken Comments Blood Pressure 160/94 07/08/2024 10:47 AM EDT Pulse 87 06/10/2024 10:19 AM EDT Temperature 36.3 ??C (97.4 ??F) 06/10/2024 10:19 AM E DT Respiratory Rate 18 06/10/2024 10:19 AM EDT Oxygen Saturation 96% 06/10/2024 10:19 AM EDT Inhaled Oxygen Concentration - - Weight 152 kg (334 lb 6.4 oz) 06/10/2024 10:19 A M EDT Height 193 cm (6' 4 ) 06/10/2024 10:19 AM EDT Body Mass Index 40.7 06/10/2024 10:19 AM EDT Plan of Treatment Upcoming Encounters Date Type Department Care Team (Late st Contact Info) Description 07/31/2024 9:30 AM EDT Medication Management [facility] [address] [place] [address] Precious Carpenter, PharmD [address] [place] [address] 09/15/2024 11:30 AM EDT Office Visit [facility] [address] [place] [address] Name, MD Ming [address] [facility] [place] [address] Health Maintenance Due Date Last Done Comments CT Colonography 1974 Colonoscopy 1974 Colorectal Cancer Screening 1974 Dental Oral Exam 1974 Dental Prophylaxis 1974 Dental X-Ray: Full Mouth 1974 FIT DNA/Cologuard 1974 FIT 1974 FOBT 1974 HIV Screening 1974 Sigmoidoscopy 1974 Family Planning (PISQ) 1989 Hepatitis C Screening 01/12/1992 Dental X-Ray: Bitewings 05/28/2019 05/26/2018 Diabetes: Urine Protein Screening 10/12/2023 10/11/2022, 03/02/2022 Lipid Panel 10/12/2023 10/11/2022, 12/0 11/2021, 08/16/2021 COVID-19 Vaccine ( season) 2023 02/09/2022, 07/14/2021, 07/04/2020 Zoster Vaccines (1 of 2) 01/12/2024 Diabetes: Foot Exam 04/23/2024 04/23/2023, 04/23/2023, 04/23/2023, Additional history exists SDOH Screening 04/23/2024 04/23/2023 Diabetes: Hemoglobin A1C 09/10/2024 025, 01/01/2024, 07/31/2023, Additional history exists Alcohol/Substance Use Screening 09/22/2024 09/23/2023 Depression Screening 06/10/2025 06/10/2024, 06/11/19 Tobacco Screening 06/10/2025 06/10/2024 Eye Exam 06/08/2026 06/08/2024, 05/23, 06/08/2024, Additional history exists DTaP/Tdap/Td Vaccines (2 - Td or Tdap) 2028 01/10/2018, 02/06/2017 RSV Patients and Patients Aged 60 years or older (1 - 1-dose 75+ series) 2049 Pneumococcal Vaccine: 50+ Years Completed 07/02/2022, 01/18/2019 Hepatitis B Vaccines Completed 12/14/2022, 07/03/19 Influenza Vaccine Completed 06/10/2024, , 01/18/2019, Additional history exists HIB Vaccines Aged Out No longer eligi ble based on patient's age to complete this topic HPV Vaccines Aged Out No longer eligi ble based on patient's age to complete this topic Hepatitis A Vaccines Aged Out No long er eligible based on patient's age to complete this topic IPV Vaccines Aged Out No longer eligi ble based on patient's age to complete this topic Meningococcal Vaccine Aged Out No linn anna eligible based on patient's age to complete this topic RSV under 20 months Aged Out No longe r eligible based on patient's age to complete this topic Rotavirus Vaccines Aged Out No longer eligible based on patient's age to complete this topic Goals Goal Patient Goal Type Associated Problems Recent Progress Patient-Stated? Author Blood Pressure < 140/90 Blood Pressure 160/94(2024 10:47 AM EDT) No Puia, Precious, PharmD Record your blood pressure once per day Blood Pressure No Puia, Precious, PharmD Smoking cessation General No Puia, Precious, PharmD Hemoglobin A1c < 7 Result Component 8.3( 10:33 AM EDT) No Puia, Precious, PharmD Procedures Procedure Name Priority Date/Time Associated Diagnosis Comments POCT GLYCATED HEMOGLOBIN, TOTAL Routine 06/10/2024 10:33 AM EDT Type 2 diabetes mellitus with hyperglycemia, without long-term current use of insulin ([facility]) POCT GLUCOSE Routine 06/10/2024 10:27 AM EDT Type 2 diabetes mellitus with hyperglycemia, without long-term current use of insulin (CMS/[facility]) OCT, OPTIC NERVE - OU - BOTH EYES Routine 06/08/2024 2:00 PM EDT Open angle with borderline findings, low risk, bilateral ALBUMIN, RANDOM URINE W/CREATININE Routine 10/11/2022 12:14 PM EDT Depression, unspecified depression type Recurrent vomiting Obstructive sleep apnea syndrome Essential hypertension On statin therapy Umbilical hernia without obstruction and without gangrene LIPID PANEL, STANDARD Routine 10/11/2022 12:14 PM EDT Depression, unspecified depression type Recurrent vomiting Obstructive sleep apnea syndrome Essential hypertension On statin therapy Umbilical hernia without obstruction and without gangrene BITEWING - SINGLE RADIOGRAPHIC IMAGE Routine 05/26/2018 12:00 AM EST from Last 3 Months or Most Recently Relevant to Health Maintenance Results * (ABNORMAL) POCT HGB A1C (06/10/2024 10:33 AM EDT) Hemoglobin A1C 8.3(A) 4.0 - 6.0 % QC Media Lot # [id number] Lot# Expiration Date [id number] Blood 06/10/2024 10:3 3 AM EDT us Ming Espinal MD POINT OF CARE TEST ENTER/EDIT OR DERABLES Final Result * (ABNORMAL) POCT Glucose (06/10/2024 10:27 AM EDT) Glucose Blood, POC 291(A) 60 - 200 mg/dL QC Media Lot # [id number] Lot# Expiration Date [id number] Blood Capillary blood specimen / Unknown 06/10/2024 10:27 AM EDT Ming Espinal MD POINT OF CARE TEST ENTER/EDIT OR DERABLES Final Result * OCT, Optic Nerve - OU - Both Eyes (06/08/2024 2:00 PM EDT) Narrative Sonya Ferreira, OD - 06/08/2024 2:00 PM EDT OCT OPTIC NERVE INTERPRETATION Optical Coherence Tomography Interpretation Report Reliability: OD: 54, good quality scan OS: 59, good quality scan Measurements: Avg RNFL thickness OD: ??100 microns OS: ??101 microns Test findings: OD: Robust RNFL all quadrants. Baseline. OS: Robust RNFL all quadrants. Baseline. Impression and Plan: No glaucomatous thinning patterns present both eyes (OU). Very low risk suspect - monitor annually Sonya Ferreira OD OPHTH TOMOGRAPHY Final Result * Albumin, Random Urine W/Creatinine (10/11/2022 12:14 PM EDT) Creatinine, Urine 336.19 mg/dL [facility] Microalbumin Urine 87.0 mg/L [facility] Microalbum Creatinine Ratio Ur 25.8 ug/mg cr [facility] Comment:Albumin/Creatinine R atio Reference Ranges: Normal: < 30 ug/mg creatinine Microalbuminuria: 30 - 300 ug/mg creatinineClinical Albuminuria: > 300 ug/mg creatinine Urine 10/11/2022 12:1 4 PM EDT 10/11/2022 1:14 PM EDT us Ming Espinal MD LAB URINE ORDERABLES Final Resul t [facility] [address] [place] [phone] * Lipid Panel, Standard (10/11/2022 12:14 PM EDT) Triglycerides 310 mg/dL [facility] Comment:Desirable Triglyceri de: less than 150 mg/dLBorderline High Triglyceride 150-199 mg/dLHigh Triglyceride: 200-499 mg/dLVery High Triglyceride: greater than or equal to 5OO mg/dL Cholesterol 197 mg/dL [facility] Comment:Desirable Cholestero l: less than 200 mg/dLBorderline High Cholesterol: 200-239 mg/dLHigh Cholesterol: greater than 239 mg/dL LDL Cholesterol Calculated 99 mg/dl [facility] Comment:Desirable LDL: less than 100 mg/dLNear Optimal/Above Optimal LDL: 110- 129 mg/dLBorderline High LDL: 130-159 mg/dLHigh LDL: 160-189 mg/dLVery High LDL: greater than or equal to 190 mg/dL HDL Cholesterol 36 mg/dL [facility] Comment:Desirable HDL: great er than 40 mg/dL Note: This HDL assay may give artificially low results in patients with liver disease. Blood Venous blood specimen / Unknown 10/11/2022 12:14 PM EDT 10/11/2022 1:33 PM EDT us Ming Name LAB BLOOD ORDERABLES Final Resul t [facility] [address] [place] [address] [phone] from Last 3 Months or Most Recently Relevant to Health Maintenance Insurance [facility] C3 HSN FULL DENTAL-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
[2024-07-27 11:15] LABS: MANUAL DIFF FLAG NO
[2024-07-27 11:25] LABS: Basophils Absolute Auto 0.1 X10*3/uL (0.0-0.2); Basophils Percent Auto 0.9 % (0-2); Eosinophils Absolute Auto 0.3 X10*3/uL (0.0-0.4); Eosinophils Percent Auto 2.5 % (0-4); Hematocrit 45.2 % (42.0-52.0); Hemoglobin 14.2 g/dl (14.0-18.0); Imm Gran Abs Auto 0.07 X10*3/uL (0.00-0.03); Imm Gran Pct Auto 0.5 % (0.0-0.4); Lymphocytes Absolute Auto 2.1 X10*3/uL (1.2-4.9); Lymphocytes Percent Auto 15.7 % (20-40); Mean Corpuscular HGB Conc 31.4 g/dl (31.0-36.0); Mean Corpuscular Hemoglobin 29.6 pg (27.0-33.0); Mean Corpuscular Volume 94.4 fL (80.0-98.0); Mean Platelet Volume 10.8 fL (9.4-12.4); Monocytes Absolute Auto 0.8 X10*3/uL (0.1-1.2); Monocytes Percent Auto 5.9 % (2-11); Neutrophils Absolute Auto 9.8 x10*3/uL (2.0-8.3); Neutrophils Percent Auto 74.5 % (45-73); Platelet Count 246 X10*3/uL (160-400); Red Blood Count 4.79 X10*6/uL (4.60-5.80); Red Cell Distribution Width 12.5 % (11.0-16.0); White Blood Count 13.2 X10*3/uL (4.8-10.8)
[2024-07-27 11:58] LABS: Anion Gap 10 (12-20); Bilirubin Direct 0.1 mg/dL (0.0-0.5); Bilirubin Total 0.3 mg/dL (0.0-1.0); Blood Urea Nitrogen 14 mg/dL (9-16); Calcium 9.5 mg/dL (8.4-10.2); Carbon Dioxide 34 mmol/L (22-29); Chloride 100 mmol/L (96-108); Estimated Glomerular Filt Rate > 60; Glucose Random 202 mg/dL (60-115); Potassium 4.3 mmol/L (3.3-5.1); Sodium 140 mmol/L (135-145)
[2024-07-27 11:59] LABS: Alanine Aminotransferase 18 U/L (0-40); Albumin Level 4.3 g/dL (3.5-5.0); Alkaline Phosphatase 92 U/L (39-117); Aspartate Amino Transferase 20 U/L (5-37); Cholesterol 171 mg/dL (<200); Total Protein 7.7 g/dL (6.5-8.0); Triglycerides 165 mg/dL (<150)
[2024-07-27 12:23] LABS: Vitamin B12 292 pg/mL (200-900)
[2024-07-27 12:39] LABS: HDL Cholesterol 41 mg/dL (>40); LDL Cholesterol Calculated 97 mg/dL (<100)
== END 2024-07-27 08:03 | disposition home or self-care (01) ==
LOC: HO.HHCL 08:02
PROVIDERS: Visit Provider Internal Medicine Geriatric Medicine
DX: S21.201S Unspecified open wound of right back wall of thorax without penetration into thoracic cavity, sequela (principal); L02.212 Cutaneous abscess of back [any part, except buttock and flank]; N17.9 Acute kidney failure, unspecified; E11.65 Type 2 diabetes mellitus with hyperglycemia
CPT/HCPCS: 36415; 80048; 80061; 80076; 82607; 85025